=== PATIENT | female | born 1940 | race Caucasian/White ===

== ENCOUNTER 2017-02-25 09:47 | Observation (INO) | payer MEDICARE ==
[2017-02-25] VITALS (7 sets, daily range): BP systolic 154–168; BP diastolic 75–90; PULSE 69–95; RESP 16–20; TEMP 97.1–97.9; O2SAT 95–99
[~2017-02-25] VITALS: Ht 157.5 cm; Wt 53.4 kg
[~2017-02-25 09:47] MED LIST: LEVO.075 PO; SYNT25TA PO
--- NOTE | 2017-02-25 09:58 | PD ---
HPI Chief Complaint: Fall Time Seen by Provider: 09:54 Travel History International Travel<30 days: No Contact w/Intl Traveler<30days: No Traveled to known affect area: No History of Present Illness HPI Patient presents via [facility] after being called by her neighbors who noticed that her papers were building up. Patient is a poor historian. Reports having some alcoholic drinks on Sunday with a fall in the bathroom. Denies any head trauma or loss of consciousness. States she walked her dog on Sunday but went back and laid down in bed. Alert to date. States her 7 years ago and she has lived alone since. Denies any nausea vomiting diarrhea or fever. Denies any chest pain shortness of breath urinary or bowel symptoms. History of lung cancer with lobectomy. [facility] Past Medical History Cancer: Yes (SKIN ,RT. LUNG CA. 2008) High Cholesterol: Yes Chemotherapy: Yes COPD: Yes (EMPHYSEMA) Diabetes: No Diminished Hearing: No Glaucoma: No Hepatitis: No Hiatal Hernia: No Hypertension: Yes (NOT ON MEDS) Radiation Therapy: Yes Thyroid Disease: Yes Past Surgical History Abdominal Surgery: No Cardiac Surgery: No Ear Surgery: No Endocrine Surgery: No Eye Surgery: Yes (BILAT CATARACT EXT) Genitourinary Surgery: No Gynecologic Surgery: No Oral Surgery: Yes Pacemaker: No Thoracic Surgery: Yes (RUL AND RML REMOVAL-LOBECTOMY MAY 2009) Tonsillectomy: Yes (1947) Other Surgery: Yes (BASAL CELL CARSENOMA SX.,RT. UPPER,MIDLLE LUMBECTOMY ON 05/16) Social History Alcohol Use: Yes (DAILY) Tobacco Use: Yes (/2 PPD) Substance Use: No Allergies-Medications (Allergen,Severity, Reaction): Coded Allergies: Sulfa (Verified Allergy, Mild, CAN'T REMEMBER REACTION, 02/25/17) Vancomycin (Verified Adverse Reaction, Mild, ITCHINESS, REDNESS, 02/25/17) IMMEDIATE RELIEF WITH BENADRYL Reported Meds & Prescriptions Reported Meds & Active Scripts Active Reported Levothyroxine (Levothyroxine Sodium) 75 Mcg Tab 75 Mcg PO DAILY Review of Systems General / Constitutional: No: Fever Eyes: No: Visual changes HENT: No: Headaches Cardiovascular: No: Chest Pain or Discomfort Respiratory: No: Shortness of Breath Gastrointestinal: No: Abdominal Pain Genitourinary: No: Dysuria Musculoskeletal: No: Pain Skin: No Rash Neurologic: No: Weakness Psychiatric: No: Depression Endocrine: No: Polydipsia Hematologic/Lymphatic: No: Easy Bruising Physical Exam Narrative GENERAL: Poorly nourished SKIN: Focused skin assessment warm/dry. HEAD: Atraumatic. Normocephalic. EYES: Pupils equal and round. No scleral icterus. No injection or drainage. ENT: No nasal bleeding or discharge. Mucous membranes pink and moist. NECK: Trachea midline. No JVD. CARDIOVASCULAR: Regular rate and rhythm. No murmur appreciated. RESPIRATORY: No accessory muscle use. Clear to auscultation. Breath sounds equal bilaterally. GASTROINTESTINAL: Abdomen soft, non-tender, nondistended. Hepatic and splenic margins not palpable. MUSCULOSKELETAL: No obvious deformities. No clubbing. No cyanosis. No edema. NEUROLOGICAL: Awake. No obvious cranial nerve deficits. Motor grossly within normal limits. Normal speech. Data Data Last Documented VS Orders Comprehensive Metabolic Panel (02/25/17 09:54) Complete Blood Count With Diff (02/25/17 09:54) Urinalysis - C+S If Indicated (02/25/17 09:54) Chest, Single Ap (02/25/17 ) Hip, Ap Only W Ap Pelvis (02/25/17 ) Ct Brain W/O Iv Contrast(Rout) (02/25/17 ) Admit Order (Ed Use Only) (02/25/17 ) Vital Signs (Adult) Q4H (02/25/17 13:28) Diet Heart Healthy (02/25/17 Lunch) Activity Oob With Assistance (02/25/17 13:28) ^ Saline Lock (02/25/17 13:28) Resp Oxygen Donovan C Titrat 1-4 L (02/25/17 ) Notify Dr: Other (02/25/17 13:28) Ondansetron Inj (Zofran Inj) (02/25/17 13:30) Acetaminophen (Tylenol) (02/25/17 13:30) Sodium Chloride 0.9% Flush (Ns Flush) (02/25/17 21:00) Sodium Chloride 0.9% Flush (Ns Flush) (02/25/17 13:30) Case Management Consult (02/25/17 13:28) Labs MDM Medical Decision Making Medical Screen Exam Complete: Yes Emergency Medical Condition: Yes Differential Diagnosis Failure to thrive, fall risk, change of mental status Narrative Course Assessment and plan discussed with patient bedside. Last 72 hours Impressions Hip and Pelvis X-Ray 02/25/17 0000 Signed Impressions: Service Date/Time: Saturday, February 25, 2017 10:16 - CONCLUSION: No acute disease. Arron Brar MD Head CT 02/25/17 0000 Signed Impressions: Service Date/Time: Saturday, February 25, 2017 10:44 - CONCLUSION: Small amount of fluid in the right mastoid air cells. Remote basal ganglia infarcts. Arron Brar MD Chest X-Ray 02/25/17 0000 Signed Impressions: Service Date/Time: Saturday, February 25, 2017 10:18 - CONCLUSION: Findings suspect for aneurysmal dilatation of the ascending aorta. Abnormal opacity right lung apex with surgical clips present. A right apical mass can have this appearance. Arron Brar MD Patient failed ambulation Physician Communication Physician Communication Spoke with Dr. Carpio who is in agreement will admit Diagnosis Primary Impression: Failure to thrive (0-17) Additional Impression: Risk for falls Oscar Becker MD February 25, 2017 09:58 Platelet Count 189 TH/MM3 Mean Platelet Volume 7.6 FL Neutrophils (%) (Auto) 82.4 % Lymphocytes (%) (Auto) 8.0 % Monocytes (%) (Auto) 6.4 % Eosinophils (%) (Auto) 0.2 % Basophils (%) (Auto) 3.0 % Neutrophils # (Auto) 11.4 TH/MM3 Lymphocytes # (Auto) 1.1 TH/MM3 Monocytes # (Auto) 0.9 TH/MM3 Eosinophils # (Auto) 0.0 TH/MM3 Basophils # (Auto) 0.4 TH/MM3 CBC Comment DIFF FINAL Differential Comment Sodium Level 138 MEQ/L Potassium Level 3.8 MEQ/L Chloride Level 101 MEQ/L Carbon Dioxide Level 28.3 MEQ/L Anion Gap 9 MEQ/L Blood Urea Nitrogen 11 MG/DL Creatinine 0.69 MG/DL Estimat Glomerular Filtration 82 ML/MIN Rate Random Glucose 129 MG/DL Calcium Level 9.6 MG/DL Total Bilirubin 0.9 MG/DL Aspartate Amino Transf 50 U/L (AST/SGOT) Alanine Aminotransferase 37 U/L (ALT/SGPT) Alkaline Phosphatase 84 U/L Total Protein 8.3 GM/DL Albumin 3.6 GM/DL MDM Medical Decision Making Medical Screen Exam Complete: Yes Emergency Medical Condition: Yes Differential Diagnosis Failure to thrive, fall risk, change of mental status Narrative Course Assessment and plan discussed with patient bedside. Last 72 hours Impressions Hip and Pelvis X-Ray 02/25/17 0000 Signed Impressions: Service Date/Time: Saturday, February 25, 2017 10:16 - CONCLUSION: No acute disease. Arron Brar MD Head CT 02/25/17 0000 Signed Impressions: Service Date/Time: Saturday, February 25, 2017 10:44 - CONCLUSION: Small amount of fluid in the right mastoid air cells. Remote basal ganglia infarcts. Arron Brar MD Chest X-Ray 02/25/17 0000 Signed Impressions: Service Date/Time: Saturday, February 25, 2017 10:18 - CONCLUSION: Findings suspect for aneurysmal dilatation of the ascending aorta. Abnormal opacity right lung apex with surgical clips present. A right apical mass can have this appearance. Arron Brar MD Patient failed ambulation Physician Communication Physician Communication Spoke with Dr. aCrpio who is in agreement will admit Diagnosis Primary Impression: Failure to thrive (0-17) Additional Impression: Risk for falls Oscar Becker MD February 25, 2017 09:58
[2017-02-25] MEDS ORDERED: LEVO75TA3 PO (10:07)
[2017-02-25 10:19] LABS: BLOOD, URINE TRACE (NEG); GLUCOSE,URINE NEG (NEG); KETONE, URINE TRACE mg/dL (NEG); NITRITE,URINE NEG (NEG)
[2017-02-25 10:22] LABS: METHOD OF COLLECTION CATH; URINE COLOR YELLOW (YELLW/STRAW)
[2017-02-25 10:23] LABS: CULTURE IF INDICATED CATH CULTURE NOT IND; RBC, URINE 0-3 /hpf (0-3)
[2017-02-25 10:24] LABS: COMMENT (UR) CATH-CULT NOT IND; COMMENT2 (UR) MUCOUS PRESENT; SQUAMOUS EPITHELIAL CELL URINE 0-5 /hpf (0-5); TRANSITIONAL EPI CELLS, URINE 0-5 /hpf
[2017-02-25 10:41] LABS: AUTOMATED NEUTROPHIL # 11.4 TH/MM3 (1.8-7.7); BASOPHIL # 0.4 TH/MM3 (0-0.2); EOSINOPHIL % 0.2 % (0.0-4.0); HEMATOCRIT 44.8 % (35.0-46.0); HEMO FLAGS DIFF FINAL; LYMPHOCYTE # 1.1 TH/MM3 (1.0-4.8); MEAN CELL VOLUME 93.1 FL (80.0-100.0); MEAN CORPUSCULAR HEMOGLOBIN 31.6 PG (27.0-34.0); MONO % 6.4 % (0.0-8.0); NEUT % 82.4 % (16.0-70.0); PLATELET COUNT 189 TH/MM3 (150-450); RED BLOOD COUNT 4.82 MIL/MM3 (4.00-5.30); RED CELL DISTRIBUTION WIDTH 14.6 % (11.6-17.2); WHITE BLOOD COUNT 13.8 TH/MM3 (4.0-11.0)
--- NOTE | 2017-02-25 10:47 | RADHPO ---
EXAM DATE/TIME: 02/25/2017 10:18 [facility] COMPARISON: No previous studies available for comparison. INDICATIONS : Short of breath, fall 2 days ago MEDICAL HISTORY : None. SURGICAL HISTORY : None. ENCOUNTER: Initial ACUITY: 2 days PAIN SCORE: 0/10 LOCATION: Bilateral chest FINDINGS: Abnormal opacity the right lung apex is noted with surgical clips present. The aorta is tortuous and findings are concerning for dilatation of the ascending aorta. The lungs are otherwise clear. Osseous structures are intact. CONCLUSION: Findings suspect for aneurysmal dilatation of the ascending aorta. Abnormal opacity right lung apex w ith surgical clips present. A right apical mass can have this appearance. Arron Brar MD on February 25, 2017 at 10:45 Board Certified Radiologist. This report was verified electronically.
--- NOTE | 2017-02-25 10:48 | RADHPO ---
EXAM DATE/TIME: 02/25/2017 10:16 [facility] COMPARISON: No previous studies available for comparison. INDICATIONS : Right hip area pain from fall 2 days ago MEDICAL HISTORY : None. SURGICAL HISTORY : None. ENCOUNTER: Initial ACUITY: 2 days PAIN SCORE: 6/10 LOCATION: Right hip FINDINGS: View of the right hip and pelvis was obtained. Femoral neck is intact. No fracture is seen. The so ft tissues are unremarkable. There is moderate osteoarthritis noted. CONCLUSION: No acute disease. Arron Brar MD on February 25, 2017 at 10:46 Board Certified Radiologist. This report was verified electronically.
[2017-02-25 10:51] LABS: CHLORIDE 101 MEQ/L (98-107); POTASSIUM 3.8 MEQ/L (3.5-5.1); SODIUM (NA) 138 MEQ/L (136-145)
[2017-02-25 10:54] LABS: ANION GAP 9 MEQ/L (5-15); BICARBONATE 28.3 MEQ/L (21.0-32.0); BLOOD UREA NITROGEN 11 MG/DL (7-18)
[2017-02-25 10:57] LABS: ALT (GPT) 37 U/L (10-53); AST (GOT) 50 U/L (15-37)
[2017-02-25 10:58] LABS: GLOMERULAR FILTRATION RATE 82 ML/MIN (>89)
[2017-02-25 10:59] LABS: TOTAL BILIRUBIN ADULT 0.9 MG/DL (0.2-1.0)
[2017-02-25 11:00] LABS: ALKALINE PHOSPHATASE 84 U/L (45-117)
--- NOTE | 2017-02-25 11:08 | RADHPO ---
EXAM DATE/TIME: 02/25/2017 10:44 [facility] COMPARISON: No previous studies available for comparison. INDICATIONS : Fall. RADIATION DOSE: 61.90 CTDIvol (mGy) MEDICAL HISTORY : Hypertension. Carcinoma, lung. Chronic obstructive pulmonary disease.Basal cell cancer SURGICAL HISTORY : Tonsillectomy. Right lobectomy. Bilateral cataracts ENCOUNTER: Initial ACUITY: 2 days PAIN SCALE: 5/10 LOCATION: Right cranial TECHNIQUE: Multiple contiguous axial images were obtained of the head. Using automated exposure control and adj ustment of the mA and/or kV according to patient size, radiation dose was kept as low as reasonably a chievable to obtain optimal diagnostic quality images. FINDINGS: There is fluid in the right mastoid air cells inferiorly. No fractures are seen. No hemorrhage, acute infarct, or mass. There is mild atrophy and remote basal ganglia lacunar infarcts identified on the left. CONCLUSION: Small amount of fluid in the right mastoid air cells. Remote basal ganglia infarcts. Arron Brar MD on February 25, 2017 at 11:05 Board Certified Radiologist. This report was verified electronically.
[2017-02-25] MEDS ORDERED: ONDANSETRON HCL 4 MG/2 ML VIAL IV PRN (13:30)
[2017-02-25] MEDS ORDERED: ACETAMINOPHEN 325 MG TAB PO PRN ×2 (13:30→14:00)
[2017-02-25] MEDS ORDERED: SODIUM CHLORIDE 0.9% FLUSH 10 ML FLUSH IVF PRN (13:30)
[2017-02-25] MEDS ORDERED: SODIUM CHLORIDE 0.9% FLUSH 10 ML FLUSH IV FLUSH PRN (14:00)
[2017-02-25] MEDS ORDERED: NALOXONE HCL 0.4 MG/ML AMP IV PRN (14:00)
[2017-02-25] MEDS: ENOXAPARIN SODIUM 40 MG/0.4 ML SYRINGE SQ SCH (14:07)
--- NOTE | 2017-02-25 16:33 | HHI.HP ---
HPI Service [facility] Hospitalists Primary Care Physician Trena Fernandez MD Admission Diagnosis failure to thrive, fall risk Chief Complaint: poor eating and falling at home Travel History International Travel<30 Days: No Contact w/Intl Traveler <30 Da: No Traveled to Known Affected Are: No History of Present Illness Patient presents via [facility] after being called by her neighbors who noticed that her papers were building up. Patient is a poor historian. Reports having some alcoholic drinks on Sunday with a fall in the bathroom. Patient states continues to smoke and does drink and has been falling and does live alone. Patient in 2008 had ca lung s/p surgery ,chemo and RT and followed by oncology with yearly CT. Denies any head trauma or loss of consciousness. States she walked her dog on Sunday but went back and laid down in bed. Alert to date. States her 7 years ago and she has lived alone since. Denies any nausea vomiting diarrhea or fever. Denies any chest pain shortness of breath urinary or bowel symptoms. History of lung cancer with lobectomy. Patient in er very unsteady and will need rehab placement for strengthening will add prn ativan as history drinking. Review of Systems Constitutional: COMPLAINS OF: Change in appetite Neurologic: COMPLAINS OF: Abnormal gait Past Family Social History Past Medical History hypothyroid,lung cancer Past Surgical History lobectomy rt Reported Medications levothyroxine 75 Allergies: Coded Allergies: Sulfa (Verified Allergy, Mild, CAN'T REMEMBER REACTION, 02/25/17) Vancomycin (Verified Adverse Reaction, Mild, ITCHINESS, REDNESS, 02/25/17) IMMEDIATE RELIEF WITH BENADRYL Social History drinks ,smokes 1/2 ppd Physical Exam Vital Signs Vital Signs Date Time Temp Pulse Resp B/P Pulse Ox O2 Delivery O2 Flow Rate FiO2 02/25/17 16:14 95 21 02/25/17 16:00 97.1 92 16 168/90 95 02/25/17 13:18 95 20 160/75 97 Room Air 02/25/17 11:05 69 18 158/81 96 Room Air 02/25/17 10:10 98 Room Air 02/25/17 09:59 97.5 78 18 164/76 99 Physical Exam GENERAL: This is a well-nourished, well-developed patient, in no apparent distress. SKIN: No rashes, ecchymoses or lesions. Cool and dry. HEAD: Atraumatic. Normocephalic. No temporal or scalp tenderness. EYES: Pupils equal round and reactive. Extraocular motions intact. No scleral icterus. No injection or drainage. ENT: Nose without bleeding, purulent drainage or septal hematoma. Throat without erythema, tonsillar hypertrophy or exudate. Uvula midline. Airway patent. NECK: Trachea midline. No JVD or lymphadenopathy. Supple, nontender, no meningeal signs. CARDIOVASCULAR: Regular rate and rhythm without murmurs, gallops, or rubs. RESPIRATORY: Clear to auscultation. Breath sounds equal bilaterally. No wheezes , rales, or rhonchi. GASTROINTESTINAL: Abdomen soft, non-tender, nondistended. No hepato-splenomegaly , or palpable masses. No guarding. MUSCULOSKELETAL: Extremities without clubbing, cyanosis, or edema. No joint tenderness, effusion, or edema noted. No calf tenderness. Negative Homans sign bilaterally. NEUROLOGICAL: Awake and alert. Cranial nerves II through XII intact. Motor and sensory grossly within normal limits. Five out of 5 muscle strength in all muscle groups. Normal speech. Laboratory Laboratory Tests Test 02/25/17 02/25/17 10:00 10:34 Urine Collection Type CATH Urine Color YELLOW Urine Turbidity SLIGHT Urine pH 6.0 Urine Specific [place] 1.016 Urine Protein 100 Urine Glucose (UA) NEG Urine Ketones TRACE Urine Occult Blood TRACE Urine Nitrite NEG Urine Bilirubin NEG Urine Leukocyte Esterase NEG Urine RBC 0-3 Urine Squamous Epithelial 0-5 Cells Urine Transitional Epithelial 0-5 Cells Urine Amorphous Sediment FEW Microscopic Urinalysis Comment CATH-CULT NOT IND Urine Collection Time 1000 White Blood Count 13.8 Red Blood Count 4.82 Hemoglobin 15.3 Hematocrit 44.8 Mean Corpuscular Volume 93.1 Mean Corpuscular Hemoglobin 31.6 Mean Corpuscular Hemoglobin 34.0 Concent Red Cell Distribution Width 14.6 Platelet Count 189 Mean Platelet Volume 7.6 Neutrophils (%) (Auto) 82.4 Lymphocytes (%) (Auto) 8.0 Monocytes (%) (Auto) 6.4 Eosinophils (%) (Auto) 0.2 Basophils (%) (Auto) 3.0 Neutrophils # (Auto) 11.4 Lymphocytes # (Auto) 1.1 Monocytes # (Auto) 0.9 Eosinophils # (Auto) 0.0 Basophils # (Auto) 0.4 CBC Comment DIFF FINAL Differential Comment Sodium Level 138 Potassium Level 3.8 Chloride Level 101 Carbon Dioxide Level 28.3 Anion Gap 9 Blood Urea Nitrogen 11 Creatinine 0.69 Estimat Glomerular Filtration 82 Rate Random Glucose 129 Calcium Level 9.6 Total Bilirubin 0.9 Aspartate Amino Transf 50 (AST/SGOT) Alanine Aminotransferase 37 (ALT/SGPT) Alkaline Phosphatase 84 Total Protein 8.3 Albumin 3.6 Result Diagram: 02/25/17 1034 02/25/17 1034 Imaging Last 24 hours Impressions Hip and Pelvis X-Ray 02/25/17 0000 Signed Impressions: Service Date/Time: Saturday, February 25, 2017 10:16 - CONCLUSION: No acute disease. Arron Brar MD Head CT 02/25/17 0000 Signed Impressions: Service Date/Time: Saturday, February 25, 2017 10:44 - CONCLUSION: Small amount of fluid in the right mastoid air cells. Remote basal ganglia infarcts. Arron Brar MD Chest X-Ray 02/25/17 0000 Signed Impressions: Service Date/Time: Saturday, February 25, 2017 10:18 - CONCLUSION: Findings suspect for aneurysmal dilatation of the ascending aorta. Abnormal opacity right lung apex with surgical clips present. A right apical mass can have this appearance. Arron Brar MD Assessment and Plan Problem List: (1) Failure to thrive (0-17) Status: Acute Plan: patient did eat well and is drinking fluid will hold off any IV treatment will need placement (2) Risk for falls Status: Chronic Plan: as above will get PT to evaluate feel will need placement Assessment and Plan as aboce consult case management also note has slightly abnormal chest xray but does follow with oncology as out patient and further evaluation can be done as outpatient also ?aneurysm on asending aorta will get aortic ultrasound Code Status full Discussed Condition With patient Taras Siddiqui MD February 25, 2017 16:33
[2017-02-25] MEDS: SODIUM CHLORIDE 0.9% FLUSH 10 ML FLUSH IV FLUSH SCH (21:00)
[2017-02-25] MEDS ORDERED: SODIUM CHLORIDE 0.9% FLUSH 10 ML FLUSH IV FLUSH SCH (21:00)
[2017-02-25] MEDS ORDERED: LORazepam 0.5 MG TAB PO PRN (23:30)
[2017-02-26 00:41] VITALS: BP 141/84; PULSE 80; RESP 20; TEMP 97.3; O2SAT 95
[2017-02-26] MEDS ORDERED: LEVOTHYROXINE SODIUM 75 MCG TAB PO SCH (06:00)
[2017-02-26 07:59] VITALS: O2SAT 93
[2017-02-26 08:00] VITALS: BP 135/84; PULSE 74; RESP 16; TEMP 98; O2SAT 95
[2017-02-26 08:07] LABS: AUTOMATED NEUTROPHIL # 9.1 TH/MM3 (1.8-7.7); BASOPHIL % 0.2 % (0.0-2.0); CHLORIDE 105 MEQ/L (98-107); EOSINOPHIL # 0.2 TH/MM3 (0-0.4); EOSINOPHIL % 1.5 % (0.0-4.0); HEMATOCRIT 41.1 % (35.0-46.0); HEMO FLAGS DIFF FINAL; LYMPH % 10.8 % (9.0-44.0); LYMPHOCYTE # 1.2 TH/MM3 (1.0-4.8); MEAN CELL VOLUME 93.1 FL (80.0-100.0); MEAN CORPUSCULAR HEMOGLOBIN 31.4 PG (27.0-34.0); MEAN CORPUSCULAR HGB CONC 33.8 % (32.0-36.0); MONO % 8.1 % (0.0-8.0); NEUT % 79.4 % (16.0-70.0); PLATELET COUNT 146 TH/MM3 (150-450); POTASSIUM 3.2 MEQ/L (3.5-5.1); RED BLOOD COUNT 4.41 MIL/MM3 (4.00-5.30); RED CELL DISTRIBUTION WIDTH 15.1 % (11.6-17.2); SODIUM (NA) 140 MEQ/L (136-145); WHITE BLOOD COUNT 11.4 TH/MM3 (4.0-11.0)
[2017-02-26 08:17] LABS: ANION GAP 8 MEQ/L (5-15); BICARBONATE 26.7 MEQ/L (21.0-32.0)
[2017-02-26 08:18] LABS: BLOOD UREA NITROGEN 17 MG/DL (7-18)
[2017-02-26 08:20] LABS: ALT (GPT) 30 U/L (10-53); AST (GOT) 41 U/L (15-37); GLOMERULAR FILTRATION RATE 97 ML/MIN (>89)
[2017-02-26 08:21] LABS: TOTAL BILIRUBIN ADULT 0.7 MG/DL (0.2-1.0)
[2017-02-26 08:23] LABS: ALKALINE PHOSPHATASE 67 U/L (45-117)
--- NOTE | 2017-02-26 09:03 | HHI.FPPN ---
Subjective Remarks Sore all over today, mostly to the right shoulder and right hip and back. Notes she was on the floor for nearly a day (maybe more) as she couldn't get up. Admits to having had ETOH preceeding the fall (anniversary of her 's ). NO fever, no increased cough. HAving some trouble caring for herself at home but has a dog she doesn't want to leave. She wants to go home today. No n/v. Hungry. Confused about the events of the past few days. Sister is here with her today, concerned about her. Objective Vitals Vital Signs Date Time Temp Pulse Resp B/P Pulse Ox O2 Delivery O2 Flow Rate FiO2 02/26/17 07:59 93 21 02/26/17 04:45 02/26/17 00:41 97.3 80 20 141/84 95 02/25/17 20:52 97.9 91 20 154/80 95 02/25/17 19:20 96 21 02/25/17 16:14 95 21 02/25/17 16:00 97.1 92 16 168/90 95 02/25/17 13:18 95 20 160/75 97 Room Air 02/25/17 11:05 69 18 158/81 96 Room Air 02/25/17 10:10 98 Room Air 02/25/17 09:59 97.5 78 18 164/76 99 I/O 02/25/17 02/25/17 02/25/17 02/26/17 02/26/17 02/26/17 07:00 15:00 23:00 07:00 15:00 23:00 Intake Total 640 ml 0 ml 0 ml Output Total 600 ml Balance 40 ml 0 ml 0 ml Intake Oral 240 ml IV Total 400 ml 0 ml 0 ml Output Urine Total 600 ml # Voids 2 2 Result Diagram: 02/26/1772402/26/17724 Imaging CXR with questionable right apical lesion (prior lung cancer) Objective Remarks Gen: Thin WF, actinic changes to her face, seems more vague than normal CV: RRR, no murmur LUngs: bronchial BS bilaterally, egophony to the right apex (new compared to her prior exams except when she did have her initial lung CA). no wheezing, diffusely decreased BS to the bases ABd: soft, non tender Ext: tender to the mid back, right shoulder, right hip. Uncomfortable going to sitting, decreased ROM of the right shoulder, able to move all other extremities Skin: right mid back burn to the skin, superficial, no bruising noted Able to move with PT and walking with a walker Neuro: following commands but her mentation doesn't quite seem her normal, more vague, Josh (PT) noted that she couldn't remember how to turn on the TV with the remote. Urinary Catheter: No Vascular Central Line Catheter: No A/P Discharge Planning hopefully to rehab today if possible. Pt is contemplating. Check CPK and CT today. Problem List: (1) Failure to thrive (0-17) Status: Acute Plan: She looks thinner compared to her norm (last seen in June 2016). She admits to recent ETOH use in response to the anniversary of her 's . Would like to see her in rehab for a few weeks to regain her strength and make sure she is safe at home. Sister is here for a few days. (2) Risk for falls Status: Chronic Plan: She has had falls at home but until now had done okay. Now with weakness and unable to get off the floor at home. NEeds some rehab. Check CPK due to being on the floor for 24 hours. Eval for rhabdo. Renal function is good. Encourage fluid intake. Consider fluid bolus if needed. (3) History of lung cancer Status: Chronic Plan: She had lung resection and has done well with no sign of recurrance. She does have a change in her exam and questionable lesion on her CXR. Check CT thorax. (4) Grieving Status: Chronic Plan: ONgoing since her 's , her sister's about 8 years ago. She has declined meds or counselling. Trena Fernandez MD February 26, 2017 09:03
--- NOTE | 2017-02-26 09:50 | RADHPO ---
EXAM DATE/TIME: 02/26/2017 07:55 [facility] COMPARISON: CT ABDOMEN & PELVIS W CONTRAST, January 18, 2013, 13:37. INDICATIONS : Aneurysm seen on Xray. MEDICAL HISTORY : Hypercholesterolemia. Hypertension. Emphysema. Thyroid disease. COPD. Gait problems. Skin cancer. Rig ht lung cancer. SURGICAL HISTORY : Tonsillectomy. Bilateral cataract. Right lobectomy. Basal cell carcinoma surgery. Chemotherapy. R adiation therapy. ENCOUNTER: Initial ACUITY: 2 days PAIN SCORE: 0/10 LOCATION: Abdomen. MEASUREMENTS: (AP x TRANSVERSE) PROXIMAL: 1.9 x 2.5 cm MID: 4.1 x 4.1 cm DISTAL: 1.4 x 1.5 cm RIGHT ILIAC: 1.0 x 1.0 cm LEFT ILIAC: 0.7 x 1.0 cm FINDINGS: AORTA: No significant atherosclerotic disease. Doppler evaluation within normal limits. IVC: Within normal limits. CONCLUSION: 4.1 cm abdominal aortic aneurysm Kevin Mckenzie MD on February 26, 2017 at 9:46 Board Certified Radiologist. This report was verified electronically.
[2017-02-26 10:01] LABS: CKMB 3.3 NG/ML (0.5-3.6)
--- NOTE | 2017-02-26 10:36 | HHI.DS ---
Discharge Summary Admission Date February 25, 2017 at 13:30 Discharge Date: February 26, 2017 Admitting Diagnosis failure to thrive, fall risk (1) Failure to thrive (0-17) Diagnosis: Principal (2) Risk for falls Diagnosis: Principal Brief History Patient presents via [facility] after being called by her neighbors who noticed that her papers were building up. Patient is a poor historian. Reports having some alcoholic drinks on Sunday with a fall in the bathroom. Patient states continues to smoke and does drink and has been falling and does live alone. Patient in 2008 had ca lung s/p surgery ,chemo and RT and followed by oncology with yearly CT. Denies any head trauma or loss of consciousness. States she walked her dog on Sunday but went back and laid down in bed. Alert to date. States her 7 years ago and she has lived alone since. Denies any nausea vomiting diarrhea or fever. Denies any chest pain shortness of breath urinary or bowel symptoms. History of lung cancer with lobectomy. Patient in er very unsteady and will need rehab placement for strengthening will add prn ativan as history drinking. CBC/BMP: 02/26/17 0725 02/26/17 0725 Significant Findings Laboratory Tests Test 02/25/17 02/25/17 02/26/17 02/26/17 10:00 10:34 07:10 07:25 Urine Protein 100 mg/dL (NEG-TRACE) Urine Ketones TRACE mg/dL (NEG) Urine Occult Blood TRACE (NEG) White Blood Count 13.8 TH/MM3 11.4 TH/MM3 (4.0-11.0) (4.0-11.0) Neutrophils (%) (Auto) 82.4 % 79.4 % (16.0-70.0) (16.0-70.0) Lymphocytes (%) (Auto) 8.0 % (9.0-44.0) Basophils (%) (Auto) 3.0 % (0.0-2.0) Neutrophils # (Auto) 11.4 TH/MM3 9.1 TH/MM3 (1.8-7.7) (1.8-7.7) Basophils # (Auto) 0.4 TH/MM3 (0-0.2) Estimat Glomerular Filtration 82 ML/MIN (>89) Rate Random Glucose 129 MG/DL 109 MG/DL (74-106) (74-106) Aspartate Amino Transf 50 U/L (15-37) 41 U/L (15-37) (AST/SGOT) Total Protein 8.3 GM/DL (6.4-8.2) Total Creatine Kinase 513 U/L (26-192) Platelet Count 146 TH/MM3 (150-450) Monocytes (%) (Auto) 8.1 % (0.0-8.0) Potassium Level 3.2 MEQ/L (3.5-5.1) Albumin 3.1 GM/DL (3.4-5.0) Imaging Last 24 hours Impressions Aorta Ultrasound 02/26/17 0600 Signed Impressions: Service Date/Time: Sunday, February 26, 2017 07:55 - CONCLUSION: 4.1 cm abdominal aortic aneurysm Kevin Mckenzie MD PE at Discharge GENERAL: SKIN: Warm and dry. HEAD: Atraumatic. Normocephalic. EYES: Pupils equal and round. No scleral icterus. No injection or drainage. ENT: No nasal bleeding or discharge. Mucous membranes pink and moist. NECK: Trachea midline. No JVD. CARDIOVASCULAR: Regular rate and rhythm. RESPIRATORY: No accessory muscle use. Clear to auscultation. Breath sounds equal bilaterally. GASTROINTESTINAL: Abdomen soft, non-tender, nondistended. Hepatic and splenic margins not palpable. MUSCULOSKELETAL: Extremities without clubbing, cyanosis, or edema. No obvious deformities. NEUROLOGICAL: Awake and alert. No obvious cranial nerve deficits. Motor grossly within normal limits. Four out of 5 muscle strength in the arms and legs. Normal speech. PSYCHIATRIC: Appropriate mood and affect; insight and judgment normal. Transfer Summary Patient admitted with frequent falls poor appetite and has been drinking at home and continuing to smoke . Labs were stable did have elevated WBC count but this improved on repeat does have low potassium will give potassium before discharge and follow up labs ,also did well with PT and this will be continued , patient has aortic ultrasound showing aneurysm 4.1 size ,i will discuss with PCP as to cardiovascular group she prefers and also had CT lung as had abnormality on chest xray ,patient does follow with oncology for hx lung cancer. Pt Condition on Discharge: Good Discharge Disposition: Discharge to SNF Discharge Instructions DIET: Follow Instructions for: Heart Healthy Diet Activities you can perform: Regular-No Restrictions Other Activity Instructions: use of walker Continued Medications: Levothyroxine (Levothyroxine) 75 Mcg Tab 75 MCG PO DAILY Thyroid #30 Ref 0 TAB Additional Information to rehab today Taras Siddiqui MD February 26, 2017 10:36
[2017-02-26] MEDS ORDERED: POTASSIUM CHLORIDE 20 MEQ CONTROLLED RELEASE TAB PO ONE (10:45)
--- NOTE | 2017-02-26 11:31 | RADHPO ---
EXAM DATE/TIME: 02/26/2017 10:06 [facility] COMPARISON: CHEST SINGLE AP, February 25, 2017, 10:18. INDICATIONS : Abnormal chest xray. Right lung apical opacity. RADIATION DOSE: 6.58 CTDIvol (mGy) MEDICAL HISTORY : Chronic obstructive pulmonary disease. Hypertension. Carcinoma, lung. Basal cell cancer. SURGICAL HISTORY : Tonsillectomy. Lobectomy. ENCOUNTER: Initial ACUITY: 2 days PAIN SCALE: 0/10 LOCATION: Right chest TECHNIQUE: Volumetric scanning of the chest was performed. Using automated exposure control and adjustment of t he mA and/or kV according to patient size, radiation dose was kept as low as reasonably achievable to obtain optimal diagnostic quality images. FINDINGS: LUNGS: There is no consolidation or pneumothorax. No concerning pulmonary nodule is visualized. Patient is status post right upper lobectomy with focal scarring and volume loss. There is no mass. There is und erlying emphysema greatest in the right lung. PLEURAE: There is no pleural thickening or pleural effusion. MEDIASTINUM: The heart and great vessels demonstrate no acute abnormality. Atherosclerotic changes are present wit h dilatation and calcification. There is no focal aneurysm. There is no mediastinal or hilar lymphad enopathy. Surgical changes are noted in the right hilar region with multiple clips. Coronary artery c alcifications are present. AXILLAE: Within normal limits. No lymphadenopathy. MUSCULOSKELETAL: Within normal limits for patient age. MISCELLANEOUS: The visualized upper abdominal organs demonstrate no acute abnormality. CONCLUSION: 1. The right apical pleural-parenchymal change seen on the chest x-ray corresponds to focal scarring. 2. There is no evidence of a mass. Patient is status post right upper lobectomy with volume loss and postsurgical change. 3. Atherosclerotic changes in the aorta with dilatation and no focal aneurysm. 4. Underlying emphysema and coronary artery calcifications are present. Joseph Juares MD on February 26, 2017 at 11:17 Board Certified Radiologist. This report was verified electronically.
[2017-02-26 12:00] VITALS: BP 130/80; PULSE 76; RESP 16; TEMP 98.5; O2SAT 96
[2017-02-26] MEDS: SODIUM CHLORIDE 0.9% FLUSH 10 ML FLUSH IV FLUSH SCH (13:02)
[2017-02-26] MEDS: ENOXAPARIN SODIUM 40 MG/0.4 ML SYRINGE SQ SCH (13:02)
== END 2017-02-26 15:05 ==
LOC: PHED 09:47 → UNDOADMOB 13:30 → PHEDA 13:30 → PH3B 14:16 → PHEDA 14:16 → UNDODISOB 02-26 15:05
PROVIDERS: ADMIT Internal Medicine; ATTEND Internal Medicine
DX: R62.7 Adult failure to thrive (principal); Z91.81 History of falling; E78.00 Pure hypercholesterolemia, unspecified; I10 Essential (primary) hypertension; E03.9 Hypothyroidism, unspecified; J44.9 Chronic obstructive pulmonary disease, unspecified; F17.200 Nicotine dependence, unspecified, uncomplicated; Z85.828 Personal history of other malignant neoplasm of skin; Z85.118 Personal history of other malignant neoplasm of bronchus and lung; Z88.1 Allergy status to other antibiotic agents; Z88.2 Allergy status to sulfonamides; Z92.21 Personal history of antineoplastic chemotherapy; Z92.3 Personal history of irradiation; W19.XXXA Unspecified fall, initial encounter; Y92.002 Bathroom of unspecified non-institutional (private) residence as the place of occurrence of the external cause; F17.210 Nicotine dependence, cigarettes, uncomplicated
CPT/HCPCS: 70450; 71010; 71250; 73501; 76775; 80053; 81001; 82550; 82552; 84443; 85025; 97162; 99285; G0378; G8987; G8988; J1650

== ENCOUNTER → 2017-10-15 | Outpatient (CLI) | payer MEDICARE ==
[~2017-10-15] MED LIST changes: +ECASA81 PO; -LEVO.075 PO; +LEVO75TA3 PO; +LIPI10TA PO; +PERC5TAB12 PO; -SYNT25TA PO
[2017-10-15 13:55] LABS: HEMATOCRIT 39.7 % (35.0-46.0); MEAN CORPUSCULAR HEMOGLOBIN 30.4 PG (27.0-34.0); MEAN CORPUSCULAR HGB CONC 35.4 % (32.0-36.0); MEAN PLATELET VOLUME 7.3 FL (7.0-11.0); PLATELET COUNT 162 TH/MM3 (150-450); RED BLOOD COUNT 4.62 MIL/MM3 (4.00-5.30); RED CELL DISTRIBUTION WIDTH 16.6 % (11.6-17.2); WHITE BLOOD COUNT 7.5 TH/MM3 (4.0-11.0)
[2017-10-15 14:00] LABS: INTERNATIONAL NORMALIZED RATIO 1.1 RATIO; PROTHROMBIN TIME - PATIENT 11.4 SEC (9.8-11.6)
[2017-10-15 14:16] LABS: BICARBONATE 27.4 MEQ/L (21.0-32.0); CALCIUM 9.3 MG/DL (8.5-10.1); CREATININE 0.73 MG/DL (0.50-1.00)
--- NOTE | 2017-10-15 15:01 | RADRPT ---
EXAM DATE/TIME: 10/15/2017 14:24 [facility] COMPARISON: No previous studies available for comparison. INDICATIONS : Evaluate for pneumothorax, pneumonia or communicable disease. Preop chest for abdominal aortic anuery sm repair on 10/18/17. MEDICAL HISTORY : Carcinoma, lung. Chronic obstructive pulmonary disease. Hypertension. SURGICAL HISTORY : Tonsillectomy. Lobectomy. ENCOUNTER: Initial ACUITY: 1 day PAIN SCORE: 0/10 LOCATION: Bilateral chest FINDINGS: Evidence for previous surgery right apex. Compensated cardiomegaly without overt congestive failure. There is no pneumothorax or infiltrate Degenerative changes thoracic spine. CONCLUSION: Process. Mild compensated cardiomegaly Juan A Johnson MD FACR on October 15, 2017 at 14:57 Board Certified Radiologist. This report was verified electronically.
--- NOTE | 2017-10-16 16:44 | EKG ---
Date Performed: 10/15/2017 Time Performed: 13:45:58 PTAGE: 76 years EKG: Sinus rhythm IV conduction defect Possible septal infarct - age undetermined Abnormal ECG PREVIOUS TRACING 05/11/09 IV conduction defect and septal infarct appear to be new since prior tracing. Clinical correlation is recommended. DOCTOR: Parker Elder Interpretating Date/Time 10/16/2017 16:44:29
== END ==
LOC: CPRE 13:15
PROVIDERS: ATTEND Surgery
DX: Z01.810 Encounter for preprocedural cardiovascular examination (principal); Z01.811 Encounter for preprocedural respiratory examination; Z01.812 Encounter for preprocedural laboratory examination; I71.4 Abdominal aortic aneurysm, without rupture; R94.31 Abnormal electrocardiogram [ECG] [EKG]
CPT/HCPCS: 36415; 71046; 80048; 85027; 85610; 93005

== ENCOUNTER 2017-10-18 06:19 | Inpatient (IN) | payer MEDICARE ==
[~2017-10-18] VITALS: Ht 157.5 cm; Wt 61.0 kg
[2017-10-18] VITALS (11 sets, daily range): BP systolic 157–174; BP diastolic 73–79; PULSE 51–79; RESP 16–18; TEMP 97.5–97.9; O2SAT 92–95
[~2017-10-18 06:19] MED LIST changes: -PERC5TAB12 PO
[2017-10-18] MEDS ORDERED: SODIUM CHLORID 0.9% 500 ML IV PRN (06:45)
[2017-10-18] MEDS ORDERED: LACTATED RINGER'S 1000 ML IV PRN (06:45)
[2017-10-18] MEDS ORDERED: INSULIN HUMAN REGULAR 1,000 UNITS/10 ML VIAL SQ PRN (06:45)
[2017-10-18] MEDS ORDERED: POVIDONE IODINE 5% (ANTISEPSIS KIT) 4 APPLICATIONS EACH NARE PRN (06:45)
[2017-10-18] MEDS ORDERED: METOPROLOL TARTRATE 25 MG TAB PO PRN (06:45)
[2017-10-18] MEDS ORDERED: CHLORHEXIDINE GLUCONATE 2 % 1 PACK (2 CLOTHS) TOPICAL PRN (06:45)
[2017-10-18] MEDS ORDERED: PROTAMINE SULFATE 50 MG/5 ML VIAL ONE (06:46)
[2017-10-18] MEDS ORDERED: ceFAZolin 2 GM PREMIX 0 ML ONE (06:47)
[2017-10-18] MEDS ORDERED: HEPARIN SODIUM - IV 10,000 UNITS/10 ML VIAL ONE (06:47)
[2017-10-18] MEDS ORDERED: THROMBIN (TOPICAL) 20,000 UNIT SPRAY KIT ONE (06:47)
[2017-10-18] MEDS ORDERED: BUPIVACAINE HCL PF 0.5% 30 ML VIAL ONE (06:47)
[2017-10-18] MEDS ORDERED: HEPARIN-NS/PF INJ 500 ML ONE (06:47)
--- NOTE | 2017-10-18 07:28 | HHI.HP ---
History of Present Illness Chief Complaint: AAA History of Present Illness 76 yo female with rapidly expanding AAA (4.1 to 5.1 cm in several months) but no new abdominal or back pain Past/Family/Social History Past Medical History AAA COPD lung CA hypothyroidism XOL HTN Past Surgical History lung resection Social History + tobacco Family History AAA (father) Home Medications Reported Medications Atorvastatin (Lipitor) 10 Mg Tab, 10 MG PO HS for Cholesterol Management, #30 TAB 0 Refills 10/16/[address] (Aspirin DR) 81 Mg Tabdr, 81 MG PO DAILY, TAB 0 Refills 10/16/17 Levothyroxine (Levothyroxine) 75 Mcg Tab, 75 MCG PO DAILY for Thyroid, #30 TAB 0 Refills 02/25/17 Coded Allergies: Sulfa (Sulfonamide Antibiotics) (Unverified Allergy, Mild, CAN'T REMEMBER REACTION, 10/18/17) bupropion (Verified Adverse Reaction, Severe, Rash, 10/18/17) vancomycin (Unverified Adverse Reaction, Mild, ITCHINESS, REDNESS, 10/18/17 ) IMMEDIATE RELIEF WITH BENADRYL Review of Systems Constitutional: DENIES: Fever, Chills Cardiovascular: COMPLAINS OF: Claudication, DENIES: Chest pain Gastrointestinal: DENIES: Abdominal pain Physical Exam Vitals/I&O Date Time Temp Pulse Resp B/P (MAP) Pulse Ox O2 Delivery O2 Flow Rate FiO2 10/18/17 07:03 97.5 87 20 139/73 (95) 96 Neuro: no distress, GUTIÉRREZ HEENT: NC/AT Neck: no JVD, trachea midline Heart: reg rate, no M Lungs: diminished B Abdomen: NT Vascular: palpable femoral pulses Extremities: no C/C/E Caprini VTE Risk Assessment Caprini VTE Risk Assessment: Mod/High Risk (score >= 2) Caprini Risk Assessment Model Point Value = 1 Point Value = 2 Point Value = 3 Point Value = 5 Age 41-60 Minor surgery BMI > 25 kg/m2 Swollen legs Varicose veins or History of unexplained or recurrent spontaneous Oral contraceptives or hormone replacement Sepsis (< 1 month) Serious lung disease, including pneumonia (< 1 month) Abnormal pulmonary function Acute myocardial infarction Congestive heart failure (< 1 month) History of inflammatory bowel disease Medical patient at bed rest Age 61-74 Arthroscopic surgery Major open surgery (> 45 min) Laparoscopic surgery (> 45 min) Malignancy Confined to bed (> 72 hours) Immobilizing plaster cast Central venous access Age >= 75 History of VTE Family history of VTE Factor V Leiden Prothrombin [id number] Lupus anticoagulant Anticardiolipin antibodies Elevated serum homocysteine Heparin-induced thrombocytopenia Other congenital or acquired thrombophilia Stroke (< 1 month) Elective arthroplasty Hip, pelvis, or leg fracture Acute spinal cord injury (< 1 month) Prophylaxis Regimen Total Risk Factor Score Risk Level Prophylaxis Regimen 0-1 Low Early ambulation 2 Moderate Order ONE of the following: *Sequential Compression Device (SCD) *Heparin 5000 units SQ BID 3-4 Higher Order ONE of the following medications: *Heparin 5000 units SQ TID *Enoxaparin/Lovenox 40 mg SQ daily (WT < 150 kg, CrCl > 30 mL/min) *Enoxaparin/Lovenox 30 mg SQ daily (WT < 150 kg, CrCl > 10-29 mL/min) *Enoxaparin/Lovenox 30 mg SQ BID (WT < 150 kg, CrCl > 30 mL/min) AND/OR *Sequential Compression Device (SCD) 5 or more Highest Order ONE of the following medications: *Heparin 5000 units SQ TID (Preferred with Epidurals) *Enoxaparin/Lovenox 40 mg SQ daily (WT < 150 kg, CrCl > 30 mL/min) *Enoxaparin/Lovenox 30 mg SQ daily (WT < 150 kg, CrCl > 10-29 mL/min) *Enoxaparin/Lovenox 30 mg SQ BID (WT < 150 kg, CrCl > 30 mL/min) AND *Sequential Compression Device (SCD) Assessment and Plan Plan Rapidly expanding AAA, PAD EVAR with L groin reconstruction. discussed with patient and her sister again today. Sister [phone] Raphael Pittman MD Oct 18, 2017 07:28
[2017-10-18] MEDS ORDERED: ceFAZolin INJ 1,000 MG VIAL ONE (07:44)
[2017-10-18] MEDS ORDERED: IOHEXOL 300 INJ 50 ML IV ONE (08:56)
[2017-10-18] MEDS ORDERED: ACETAMINOPHEN 1000 MG/100 ML 100 ML IV ONE (09:37)
--- NOTE | 2017-10-18 11:01 | HHI.PR ---
cc: Trena Fernandez MD; Raphael Pittman MD Immediate Post Op Note Procedure Date: Oct 18, 2017 Pre Op Diagnosis: AAA, PAD Post Op Diagnosis: AAA, PAD Surgeon: Raphael Pittman Hay Stacker Operator(s): Chandni Amador Procedure: 1. L WHEEL CUTTER TEA w/ patch 2. EVAR with 2 docking limbs 3. R SFA TEA w/ patch Findings: successful EVAR + Doppler signals at end of case Complications: none apparent Specimen(s) removed: none for pathology Estimated blood loss: 250mL Anesthesia: General Drains: None Fluids: 2400mL IVF Urinary Output (mLs): 140 Patient to: PACU Patient Condition: Good Implant/Devices: SEE IMPLANT LOG (if applicable) Date/Time of Procedure: SEE SURGICAL CARE RECORD Raphael Pittman MD Oct 18, 2017 11:01
[2017-10-18] MEDS ORDERED: BISACODYL 10 MG SUPP RECTAL PRN (11:15)
[2017-10-18] MEDS ORDERED: HYDROmorphone HCL 2 MG TAB PO PRN (11:15)
[2017-10-18] MEDS ORDERED: SENNOSIDES 8.6 MG TAB PO PRN (11:15)
[2017-10-18] MEDS ORDERED: MAGNESIUM HYDROXIDE SUSP 30 ML CUP PO PRN (11:15)
[2017-10-18] MEDS ORDERED: LACTULOSE SYRUP 20 GM/30 ML CUP PO PRN (11:15)
[2017-10-18] MEDS ORDERED: ENOXAPARIN SODIUM 30 MG/0.3 ML SYRINGE SQ SCH (11:15)
[2017-10-18] MEDS ORDERED: DO NOT ADM ANY ANTICOAGULANT DRUGS PRN (11:22)
[2017-10-18] MEDS ORDERED: *morphine SULFATE 4 MG/ML PERIprocedure ONLY ONE ×2 (12:57→13:38)
--- NOTE | 2017-10-18 15:51 | PD.VS.PN ---
Subjective POD #: 0 Procedure(s): L PRACTICE ADMINISTRATOR TEA w/ patch EVAR with 2 docking limbs R SFA TEA w/ patch Subjective/Hospital Course Pt alert in NAD c/o mild Right heel discomfort Denied abdominal/back pain LE warm with motor intact Pain controlled Objective Vitals/I&O Date Time Temp Pulse Resp B/P (MAP) Pulse Ox O2 Delivery O2 Flow Rate FiO2 10/18/17 15:00 61 16 169/77 (107) 98 Nasal Cannula 2 10/18/17 14:00 65 16 164/76 (105) 97 Nasal Cannula 2 10/18/17 13:43 15 10/18/17 13:30 65 16 153/70 (97) 97 Nasal Cannula 2 10/18/17 13:02 15 10/18/17 13:00 66 16 161/70 (100) 97 Nasal Cannula 2 10/18/17 12:45 64 16 157/70 (99) 96 Nasal Cannula 2 10/18/17 12:30 97.6 67 15 163/70 (101) 96 Nasal Cannula 2 10/18/17 12:15 66 15 167/70 (102) 98 Nasal Cannula 3 10/18/17 12:00 65 15 157/72 (100) 97 Nasal Cannula 3 165/64 (97) 10/18/17 11:45 68 15 156/74 (101) 96 Nasal Cannula 3 163/64 (97) 10/18/17 11:30 69 15 150/75 (100) 100 Nasal Cannula 4 160/62 (94) 10/18/17 11:20 97.6 73 16 151/70 (97) 99 Nasal Cannula 4 154/59 (90) 10/18/17 07:03 97.5 87 20 139/73 (95) 96 10/18/17 10/18/17 10/18/17 07:00 15:00 23:00 Intake Total 2400 ml Output Total 690 ml Balance 1710 ml Exam: GENERAL: A&OX3, NAD SKIN: LE Warm and dry w/ motor intact Provena wound vacs R/L groin intact w/o hematoma/swelling Biphasic R DP heard via Doppler Biphasic L DP/PT heard via Doppler Assessment and Plan Assessment: (1) H/O endovascular stent graft for abdominal aortic aneurysm (2) PAD (peripheral artery disease) Plan Pt with a PMH of Rapidly expanding AAA, PAD Pt S/P EVAR with R/L groin reconstruction POD 0 c/o right heel discomfort Plan Pain control Continue pulse checks Monika DUPONT [facility]/[place] [phone] Discharge Planning 3-5 days Moinka Yi Oct 18, 2017 15:51
[2017-10-18] MEDS ORDERED: MORPHINE SULFATE 2 MG/ML INJ IV PUSH PRN (16:45)
[2017-10-18] MEDS ORDERED: ONDANSETRON HCL 4 MG/2 ML VIAL IV PUSH PRN (20:30)
[2017-10-18] MEDS: ATORVASTATIN 40 MG TAB PO SCH (21:34)
[2017-10-18] MEDS: DOCUSATE SODIUM 50 MG/SENNA 8.6 MG TAB PO SCH (21:34)
[2017-10-18] MEDS: FAMOTIDINE 20 MG TAB PO SCH (21:35)
[2017-10-19] VITALS (27 sets, daily range): BP systolic 148–169; BP diastolic 67–74; PULSE 55–83; RESP 14–18; TEMP 97.9–99.8; O2SAT 93–95
[2017-10-19 05:54] LABS: HEMATOCRIT 36.4 % (35.0-46.0); HEMOGLOBIN 12.5 GM/DL (11.6-15.3); MEAN CELL VOLUME 84.8 FL (80.0-100.0); MEAN CORPUSCULAR HGB CONC 34.2 % (32.0-36.0); MEAN PLATELET VOLUME 7.9 FL (7.0-11.0); PLATELET COUNT 146 TH/MM3 (150-450); WHITE BLOOD COUNT 13.6 TH/MM3 (4.0-11.0)
[2017-10-19] MEDS: LEVOTHYROXINE SODIUM 75 MCG TAB PO SCH (05:56)
[2017-10-19 06:12] LABS: BICARBONATE 28.1 MEQ/L (21.0-32.0); CALCIUM 8.4 MG/DL (8.5-10.1); CREATININE 0.84 MG/DL (0.50-1.00)
[2017-10-19] MEDS: ASPIRIN 81 MG CHEW TAB PO SCH (10:25)
[2017-10-19] MEDS: DOCUSATE SODIUM 50 MG/SENNA 8.6 MG TAB PO SCH ×2 (10:25→20:22)
[2017-10-19] MEDS: FAMOTIDINE 20 MG TAB PO SCH ×2 (10:25→20:22)
[2017-10-19] MEDS: ENOXAPARIN SODIUM 30 MG/0.3 ML SYRINGE SQ SCH (10:25)
--- NOTE | 2017-10-19 10:40 | PD.VS.PN ---
Subjective POD #: 1 Procedure(s): L QUILLER MACHINE FIXER TEA w/ patch EVAR with 2 docking limbs R SFA TEA w/ patch Subjective/Hospital Course Pt alert in NAD/OOB to chair Pt w/o Right heel discomfort this am Pt c/o mild discomfort L groin region Denied abdominal/back pain LE warm with motor intact Pain controlled Objective Vitals/I&O Date Time Temp Pulse Resp B/P (MAP) Pulse Ox O2 Delivery O2 Flow Rate FiO2 10/19/17 09:00 69 10/19/17 08:00 72 10/19/17 08:00 95 Nasal Cannula 2.00 10/19/17 08:00 98.3 72 14 148/67 (94) 95 10/19/17 07:00 62 10/19/17 06:00 57 10/19/17 05:00 55 10/19/17 04:00 73 10/19/17 03:45 95 Nasal Cannula 2.00 10/19/17 03:45 98.0 60 18 151/70 (97) 95 10/19/17 03:00 55 10/19/17 02:00 57 10/19/17 01:00 58 10/19/17 00:00 62 10/18/17 23:33 55 10/18/17 23:15 Nasal Cannula 2.00 10/18/17 23:10 92 Nasal Cannula 1.00 10/18/17 23:10 97.5 59 18 157/73 (101) 92 10/18/17 23:00 51 10/18/17 22:00 54 10/18/17 21:35 Nasal Cannula 1.00 10/18/17 21:34 94 Nasal Cannula 2.00 10/18/17 21:30 95 Nasal Cannula 2.00 10/18/17 21:30 97.9 79 18 170/74 (106) 95 Arterial Line 10/18/17 21:00 58 10/18/17 20:00 56 10/18/17 19:00 57 10/18/17 18:00 58 10/18/17 17:30 97.6 59 16 174/79 (110) 94 10/18/17 17:30 16 10/18/17 17:30 16 10/18/17 17:14 67 14 162/75 (104) 98 Nasal Cannula 2 10/18/17 15:00 61 16 169/77 (107) 98 Nasal Cannula 2 10/18/17 14:00 65 16 164/76 (105) 97 Nasal Cannula 2 10/18/17 13:43 15 10/18/17 13:30 65 16 153/70 (97) 97 Nasal Cannula 2 10/18/17 13:02 15 10/18/17 13:00 66 16 161/70 (100) 97 Nasal Cannula 2 10/18/17 12:45 64 16 157/70 (99) 96 Nasal Cannula 2 10/18/17 12:30 97.6 67 15 163/70 (101) 96 Nasal Cannula 2 10/18/17 12:15 66 15 167/70 (102) 98 Nasal Cannula 3 10/18/17 12:00 65 15 157/72 (100) 97 Nasal Cannula 3 165/64 (97) 10/18/17 11:45 68 15 156/74 (101) 96 Nasal Cannula 3 163/64 (97) 10/18/17 11:30 69 15 150/75 (100) 100 Nasal Cannula 4 160/62 (94) 10/18/17 11:20 97.6 73 16 151/70 (97) 99 Nasal Cannula 4 154/59 (90) 10/19/17 10/19/17 10/19/17 07:00 15:00 23:00 Intake Total 480 ml Output Total 550 ml Balance -70 ml Exam: GENERAL: A&Ox3, NAD, GCS15 SKIN: LE Warm and dry w/ motor intact Provena wound vacs in place R/L groin/ bilat groins soft w/o swelling or hematoma CARDIOVASCULAR: + S1,S2 w/o M/G/R RESPIRATORY: Breath sounds equal bilaterally. No accessory muscle use. GASTROINTESTINAL: Abdomen soft, non-tender, nondistended. MUSCULOSKELETAL: No cyanosis, or edema. Palpable L DP Phasic R DP Laboratory Laboratory Tests Test 10/19/17 04:13 White Blood Count 13.6 Red Blood Count 4.30 Hemoglobin 12.5 Hematocrit 36.4 Mean Corpuscular Volume 84.8 Mean Corpuscular Hemoglobin 29.0 Mean Corpuscular Hemoglobin Concent 34.2 Red Cell Distribution Width 16.0 Platelet Count 146 Mean Platelet Volume 7.9 Blood Urea Nitrogen 13 Creatinine 0.84 Random Glucose 92 Calcium Level 8.4 Sodium Level 136 Potassium Level 4.1 Chloride Level 101 Carbon Dioxide Level 28.1 Anion Gap 7 Estimat Glomerular Filtration Rate 66 Assessment and Plan Assessment: (1) H/O endovascular stent graft for abdominal aortic aneurysm (2) PAD (peripheral artery disease) Plan Pt with a PMH of Rapidly expanding AAA, PAD Pt S/P EVAR with R/L groin reconstruction POD 1 c/o left groin discomfort Plan Pain control PT/OOB Monika DUPONT [facility]/[place] [phone] Discharge Planning 2-3 days Monika Yi Oct 19, 2017 10:40
[2017-10-19] MEDS ORDERED: PILL SPLITTER OTHER PRN (15:45)
[2017-10-19] MEDS: ATORVASTATIN 40 MG TAB PO SCH (20:22)
[2017-10-19] MEDS ORDERED: ZOLPIDEM TARTRATE 5 MG TAB PO ONE (21:00)
[2017-10-20] VITALS (25 sets, daily range): BP systolic 145–165; BP diastolic 66–71; PULSE 81–98; RESP 16–20; TEMP 98.8–99.7; O2SAT 93–96
[2017-10-20] MEDS: LEVOTHYROXINE SODIUM 75 MCG TAB PO SCH (05:31)
[2017-10-20] MEDS: ENOXAPARIN SODIUM 30 MG/0.3 ML SYRINGE SQ SCH (09:47)
[2017-10-20] MEDS: DOCUSATE SODIUM 50 MG/SENNA 8.6 MG TAB PO SCH ×2 (09:47→20:10)
[2017-10-20] MEDS: ASPIRIN 81 MG CHEW TAB PO SCH (09:47)
[2017-10-20] MEDS: FAMOTIDINE 20 MG TAB PO SCH ×2 (09:47→20:10)
--- NOTE | 2017-10-20 15:06 | PD.CAR.PN ---
CVT Progress Note Subjective/Hospital Course: Patient is status post EVAR and bilateral groin reconstructions with patch Groins are clean and dry Flow to the feet is intact Patient was getting out of bed this morning alone and the courses disoriented she fell and I found her on her knees holding on to the bed. Examined the patient carefully she did not sustain any injuries from this event Doing well at this time can be discharged tomorrow Objective: Vital Signs Date Time Temp Pulse Resp B/P (MAP) Pulse Ox O2 Delivery O2 Flow Rate FiO2 10/20/17 14:00 98 10/20/17 13:00 84 10/20/17 12:00 86 10/20/17 11:00 96 Nasal Cannula 2.00 10/20/17 11:00 99.7 92 16 145/66 (92) 96 10/20/17 11:00 92 10/20/17 10:00 88 10/20/17 09:00 86 10/20/17 08:00 82 10/20/17 08:00 95 Nasal Cannula 2.00 10/20/17 08:00 99.6 84 20 148/67 (94) 95 10/20/17 07:00 82 10/20/17 06:02 83 10/20/17 05:00 87 10/20/17 04:00 87 10/20/17 03:20 98.8 89 18 159/71 (100) 93 10/20/17 03:20 93 Nasal Cannula 2.00 10/20/17 03:00 91 10/20/17 02:00 88 10/20/17 01:00 92 10/20/17 00:00 81 10/19/17 23:30 93 Nasal Cannula 2.00 10/19/17 23:30 97.9 83 18 155/68 (97) 93 10/19/17 23:00 80 10/19/17 22:00 82 10/19/17 21:00 78 10/19/17 20:30 95 Nasal Cannula 2.00 10/19/17 20:30 99.8 76 18 169/74 (105) 95 10/19/17 20:00 78 10/19/17 19:00 74 10/19/17 18:00 77 10/19/17 17:00 77 10/19/17 16:00 72 10/19/17 15:40 14 Result Diagram: 10/19/17 0413 10/19/17 0413 Arin Whittingotn MD Oct 20, 2017 15:06
[2017-10-20] MEDS: ATORVASTATIN 40 MG TAB PO SCH (20:10)
[2017-10-21] VITALS (25 sets, daily range): BP systolic 157–187; BP diastolic 70–82; PULSE 77–92; RESP 14–18; TEMP 98.6–99.1; O2SAT 92–96
[2017-10-21] MEDS: LEVOTHYROXINE SODIUM 75 MCG TAB PO SCH (06:14)
[2017-10-21] MEDS: DOCUSATE SODIUM 50 MG/SENNA 8.6 MG TAB PO SCH ×2 (09:00→20:52)
[2017-10-21] MEDS: FAMOTIDINE 20 MG TAB PO SCH ×2 (10:15→20:53)
[2017-10-21] MEDS: ENOXAPARIN SODIUM 30 MG/0.3 ML SYRINGE SQ SCH (10:15)
[2017-10-21] MEDS: ASPIRIN 81 MG CHEW TAB PO SCH (10:15)
--- NOTE | 2017-10-21 15:47 | PD.VS.PN ---
Subjective POD #: 3 Procedure(s): L BLOOD BANK CREDIT CLERK TEA w/ patch EVAR with 2 docking limbs R SFA TEA w/ patch Subjective/Hospital Course Looks good. Still unsteady on feet terence po + BM pain controlled Objective Vitals/I&O Date Time Temp Pulse Resp B/P (MAP) Pulse Ox O2 Delivery O2 Flow Rate FiO2 10/21/17 14:00 84 10/21/17 13:00 78 10/21/17 12:00 78 10/21/17 11:00 80 10/21/17 11:00 78 14 175/77 (109) 96 10/21/17 11:00 96 Room Air 10/21/17 10:00 82 10/21/17 09:00 84 10/21/17 08:00 86 10/21/17 07:00 78 10/21/17 07:00 93 Room Air 10/21/17 07:00 98.7 80 16 166/74 (104) 93 10/21/17 06:03 82 10/21/17 05:02 77 10/21/17 04:36 89 10/21/17 03:32 81 10/21/17 03:25 92 Room Air 10/21/17 03:25 98.9 81 18 157/70 (99) 92 10/21/17 02:03 86 10/21/17 01:03 91 10/21/17 00:15 89 10/20/17 23:25 93 Room Air 10/20/17 23:25 99.6 92 17 149/67 (94) 93 10/20/17 23:25 96 10/20/17 22:26 93 10/20/17 21:34 92 10/20/17 20:15 88 10/20/17 19:20 90 10/20/17 19:20 99.4 86 18 145/67 (93) 93 10/20/17 19:20 93 Room Air 10/20/17 18:00 90 10/20/17 17:00 84 10/20/17 16:00 86 10/21/17 10/21/17 10/21/17 07:00 15:00 23:00 Intake Total 240 ml Balance 240 ml Exam: B groins soft, Provena intact Assessment and Plan Assessment: (1) H/O endovascular stent graft for abdominal aortic aneurysm (2) PAD (peripheral artery disease) Plan POD#3 Looks good needs rehab given age, fragility Discharge Planning Sunday to rehab Raphael Pittman MD Oct 21, 2017 15:47
[2017-10-21] MEDS: ATORVASTATIN 40 MG TAB PO SCH (20:52)
[2017-10-22] VITALS (16 sets, daily range): BP systolic 146–182; BP diastolic 70–82; PULSE 76–92; RESP 16–18; TEMP 97.9–98.5; O2SAT 94–98
[2017-10-22] MEDS: LEVOTHYROXINE SODIUM 75 MCG TAB PO SCH (05:01)
[2017-10-22] MEDS: hydrALAZINE HCL 20 MG/ML VIAL IV PUSH PRN ×2 (07:39→11:29)
[2017-10-22] MEDS: ASPIRIN 81 MG CHEW TAB PO SCH (09:37)
[2017-10-22] MEDS: FAMOTIDINE 20 MG TAB PO SCH (09:37)
[2017-10-22] MEDS: DOCUSATE SODIUM 50 MG/SENNA 8.6 MG TAB PO SCH (09:37)
[2017-10-22] MEDS: ENOXAPARIN SODIUM 30 MG/0.3 ML SYRINGE SQ SCH (09:38)
--- NOTE | 2017-10-22 09:41 | PD.VS.PN ---
Subjective POD #: 4 Procedure(s): L BRICK CATCHER TEA w/ patch EVAR with 2 docking limbs R SFA TEA w/ patch Subjective/Hospital Course Pt in bed w/o complaints Provena wound vacs in place (bilateral groins) Pt ambulating with assistance Objective Vitals/I&O Date Time Temp Pulse Resp B/P (MAP) Pulse Ox O2 Delivery O2 Flow Rate FiO2 10/22/17 07:50 179/77 (111) 10/22/17 07:21 95 Room Air 10/22/17 07:21 98.5 80 18 182/82 (115) 95 10/22/17 06:09 76 10/22/17 05:07 80 10/22/17 04:50 87 10/22/17 03:25 98.1 79 16 146/73 (97) 94 10/22/17 03:25 94 Room Air 10/22/17 03:22 82 10/22/17 02:40 83 10/22/17 01:14 82 10/22/17 00:21 91 10/21/17 23:45 95 Room Air 10/21/17 23:45 98.9 83 18 167/75 (105) 95 10/21/17 23:05 92 10/21/17 22:25 86 10/21/17 21:15 82 10/21/17 20:00 94 Room Air 10/21/17 20:00 99.1 84 16 164/76 (105) 94 10/21/17 20:00 82 10/21/17 18:00 84 10/21/17 17:00 88 10/21/17 16:00 82 10/21/17 15:00 82 10/21/17 15:00 93 Room Air 10/21/17 15:00 98.6 78 18 187/82 (117) 93 10/21/17 14:00 84 10/21/17 13:00 78 10/21/17 12:00 78 10/21/17 11:00 80 10/21/17 11:00 78 14 175/77 (109) 96 10/21/17 11:00 96 Room Air 10/21/17 10:00 82 10/22/17 10/22/17 10/22/17 07:00 15:00 23:00 Intake Total 240 ml Balance 240 ml Exam: GENERAL: A&OX3,NAD,GCS15 SKIN: LE Warm and dry/ motor intact Incisions to Bilateral groins intact w/ erythema noted at the incision line, NO D/S/O CARDIOVASCULAR: Regular rate and rhythm without murmurs, gallops, or rubs. RESPIRATORY: Breath sounds equal bilaterally. No accessory muscle use. GASTROINTESTINAL: Abdomen soft, non-tender, nondistended. MUSCULOSKELETAL: No cyanosis, or edema. Palpable R/L DP Assessment and Plan Assessment: (1) H/O endovascular stent graft for abdominal aortic aneurysm (2) PAD (peripheral artery disease) Plan POD#4 Looks good Pt unable to walk w/o assistance will need continued rehabilitative services for strengthening and gait training also for her given age and fragility Plan D/C today to Rehab Provena wound vacs removed Continue PT/OOB Monika DUPONT [facility]/[place] [phone] Discharge Planning Clear for D/C to rehab today Monika Yi Oct 22, 2017 09:41
[2017-10-22] MEDS ORDERED: PERC5TAB12 PO (09:46)
--- NOTE | 2017-10-22 09:57 | PD.VS.DC ---
Discharge Summary Admission Date: Oct 18, 2017 at 06:19 Discharge Date: Oct 22, 2017 Admission Diagnosis: (1) AAA (abdominal aortic aneurysm) without rupture (2) PAD (peripheral artery disease) Discharge Diagnosis: (1) H/O endovascular stent graft for abdominal aortic aneurysm ICD Codes: Z95.828 - Presence of other vascular implants and grafts (2) PAD (peripheral artery disease) ICD Codes: I73.9 - Peripheral vascular disease, unspecified (3) AAA (abdominal aortic aneurysm) without rupture ICD Codes: I71.4 - Abdominal aortic aneurysm, without rupture Brief History from admission 76 yo female with rapidly expanding AAA (4.1 to 5.1 cm in several months) but no new abdominal or back pain Procedure(s): L DIE WELDER TEA w/ patch EVAR with 2 docking limbs R SFA TEA w/ patch Significant Findings GENERAL: A&OX3,NAD,GCS15 SKIN: LE Warm and dry/ motor intact Incisions to Bilateral groins intact w/ erythema noted at the incision line, NO D/S/O CARDIOVASCULAR: Regular rate and rhythm without murmurs, gallops, or rubs. RESPIRATORY: Breath sounds equal bilaterally. No accessory muscle use. GASTROINTESTINAL: Abdomen soft, non-tender, nondistended. MUSCULOSKELETAL: No cyanosis, or edema. Palpable R/L DP Allergies Coded Allergies Type Severity Reaction Last Updated Verified Sulfa (Sulfonamide Antibiotics) Allergy Mild CAN'T REMEMBER REACTION 10/18/17 No bupropion Adverse Reaction Severe Rash 10/18/17 Yes vancomycin Adverse Reaction Mild ITCHINESS, REDNESS 10/18/17 No 10/20/17 10/20/17 10/21/17 10/21/17 10/22/17 10/22/17 06:00 18:00 06:00 18:00 06:00 18:00 Intake Total 480 ml 720 ml 240 ml 720 ml 240 ml Output Total 550 ml 525 ml 300 ml Balance -70 ml 195 ml 240 ml 420 ml 240 ml Intake Oral 480 ml 720 ml 240 ml 720 ml 240 ml Output Urine Total 550 ml 525 ml 300 ml # Voids 2 2 3 # Bowel Movements 0 Orders Procedure Category Date Status Time Famotidine (Pepcid) MED 10/19/17 In Process 21:00 Pill Splitter (Pill MED 10/19/17 In Process Splitter) 15:45 Zolpidem (Ambien) MED 10/19/17 Complete 21:00 Hydralazine Inj MED 10/21/17 In Process (Apresoline Inj) 16:30 Attending Discharge DISCHARGE 10/22/17 Transmitted Order Vital Signs Date Time Temp Pulse Resp B/P (MAP) Pulse Ox O2 Delivery O2 Flow Rate FiO2 10/22/17 07:50 179/77 (111) 10/22/17 07:21 95 Room Air 10/22/17 07:21 98.5 80 18 182/82 (115) 95 10/22/17 06:09 76 10/22/17 05:07 80 10/22/17 04:50 87 10/22/17 03:25 98.1 79 16 146/73 (97) 94 10/22/17 03:25 94 Room Air 10/22/17 03:22 82 10/22/17 02:40 83 10/22/17 01:14 82 10/22/17 00:21 91 10/21/17 23:45 95 Room Air 10/21/17 23:45 98.9 83 18 167/75 (105) 95 10/21/17 23:05 92 10/21/17 22:25 86 10/21/17 21:15 82 10/21/17 20:00 94 Room Air 10/21/17 20:00 99.1 84 16 164/76 (105) 94 10/21/17 20:00 82 10/21/17 18:00 84 10/21/17 17:00 88 10/21/17 16:00 82 10/21/17 15:00 82 10/21/17 15:00 93 Room Air 10/21/17 15:00 98.6 78 18 187/82 (117) 93 10/21/17 14:00 84 10/21/17 13:00 78 10/21/17 12:00 78 10/21/17 11:00 80 10/21/17 11:00 78 14 175/77 (109) 96 10/21/17 11:00 96 Room Air 10/21/17 10:00 82 10/21/17 09:00 84 10/21/17 08:00 86 10/21/17 07:00 78 10/21/17 07:00 93 Room Air 10/21/17 07:00 98.7 80 16 166/74 (104) 93 10/21/17 06:03 82 10/21/17 05:02 77 10/21/17 04:36 89 10/21/17 03:32 81 10/21/17 03:25 92 Room Air 10/21/17 03:25 98.9 81 18 157/70 (99) 92 10/21/17 02:03 86 10/21/17 01:03 91 10/21/17 00:15 89 10/20/17 23:25 93 Room Air 10/20/17 23:25 99.6 92 17 149/67 (94) 93 10/20/17 23:25 96 10/20/17 22:26 93 10/20/17 21:34 92 10/20/17 20:15 88 10/20/17 19:20 90 10/20/17 19:20 99.4 86 18 145/67 (93) 93 10/20/17 19:20 93 Room Air 10/20/17 18:00 90 10/20/17 17:00 84 10/20/17 16:00 86 10/20/17 15:00 88 10/20/17 15:00 94 Room Air 10/20/17 15:00 99.4 84 18 165/71 (102) 96 10/20/17 14:00 98 10/20/17 13:00 84 10/20/17 12:00 86 10/20/17 11:00 96 Nasal Cannula 2.00 10/20/17 11:00 99.7 92 16 145/66 (92) 96 10/20/17 11:00 92 10/20/17 10:00 88 10/20/17 09:00 86 10/20/17 08:00 82 10/20/17 08:00 95 Nasal Cannula 2.00 10/20/17 08:00 99.6 84 20 148/67 (94) 95 10/20/17 07:00 82 10/20/17 06:02 83 10/20/17 05:00 87 10/20/17 04:00 87 10/20/17 03:20 98.8 89 18 159/71 (100) 93 10/20/17 03:20 93 Nasal Cannula 2.00 10/20/17 03:00 91 10/20/17 02:00 88 10/20/17 01:00 92 10/20/17 00:00 81 10/19/17 23:30 93 Nasal Cannula 2.00 10/19/17 23:30 97.9 83 18 155/68 (97) 93 10/19/17 23:00 80 10/19/17 22:00 82 10/19/17 21:00 78 10/19/17 20:30 95 Nasal Cannula 2.00 10/19/17 20:30 99.8 76 18 169/74 (105) 95 10/19/17 20:00 78 10/19/17 19:00 74 10/19/17 18:00 77 10/19/17 17:00 77 10/19/17 16:00 72 10/19/17 15:40 14 10/19/17 15:00 98.3 74 16 165/71 (102) 94 10/19/17 15:00 74 10/19/17 15:00 94 Nasal Cannula 2.00 10/19/17 14:00 72 10/19/17 13:00 75 10/19/17 12:00 78 10/19/17 11:00 74 10/19/17 11:00 95 Nasal Cannula 2.00 10/19/17 11:00 73 18 157/70 (99) 95 10/19/17 10:00 73 Hospital Course: 76 yo female with rapidly expanding AAA (4.1 to 5.1 cm in several months) but no new abdominal or back pain Pt s/p L DIE WELDER TEA w/ patch/EVAR with 2 docking limbs/R SFA TEA w/ patch POD 0 Pt alert in NAD c/o mild Right heel discomfort Denied abdominal/back pain LE warm with motor intact Pain controlled POD 1 Pt alert in NAD/OOB to chair Pt w/o Right heel discomfort this am Pt c/o mild discomfort L groin region Denied abdominal/back pain LE warm with motor intact Pain controlled POD 2 Patient is status post EVAR and bilateral groin reconstructions with patch Groins are clean and dry Flow to the feet is intact Patient was getting out of bed this morning alone and the courses disoriented she fell and I found her on her knees holding on to the bed. Examined the patient carefully she did not sustain any injuries from this event Doing well at this time can be discharged tomorrow POD 3 Looks good. Still unsteady on feet terence po + BM pain controlled POD 4 Pt in bed w/o complaints Provena wound vacs in place (bilateral groins) Pt ambulating with assistance Pt unable to walk w/o assistance will need continued rehabilitative services for strengthening and gait training also for her given age and fragility Pt medically cleared for D/C to Rehab Arranged out pt follow up in 3W with a post op CTA A/P (post EVAR) and an FAIZA Discharge Condition: Good Discharge Disposition: Discharge to SNF Discharge Instructions: May shower then pat dry bilat groin incisions NO TUB BATHS until incision is fully healed Continue with a heart healthy diet Continue rehabilitative services for strengthening and gait training Leave bilat groin incisions open to air May cleanse with sterile NS then pat dry If drainage present may apply a dry bordered gauze Call the office to report any increased redness, drainage or swelling Monika DUPONT [facility] [phone] Any questions or concerns: Call [facility] V[facility] Surgery at [facility] [phone] Monika Yi Oct 22, 2017 09:57
--- NOTE | 2017-10-23 14:25 | MP ---
cc: RACIEL PITTMAN DATE OF SURGERY 10/18/17 PRIMARY DIAGNOSIS Abdominal aortic aneurysm, peripheral arterial occlusive disease POSTOPERATIVE DIAGNOSIS Abdominal aortic aneurysm, peripheral arterial occlusive disease PROCEDURE 1. Left common femoral artery endarterectomy with patch angioplasty. 2. Endovascular exclusion of abdominal aortic aneurysm with a modular bifurcated device with two docking limbs. 3. Right SFA endarterectomy and patch angioplasty. CATHERINE Pittman MD LENS CEMENTER SURGEON Rodrigo PATHAK Ms. Adan is a 76-year old lady who has a 5.1 cm abdominal aortic aneurysm that is asymptomatic, however, it has grown 1 cm in the past several months. She is a candidate for endovascular repair. She has preexisting occlusive disease and I felt that groin reconstruction to facilitate endograft placement would be in her best interest. She was taken to the operating room for this procedure. PROCEDURE IN DETAIL Informed consent was obtained from the patient. She is taken to the operating room, placed supine on the operating table. Appropriate time-out was taken to ensure patient identify and the operative site and planned procedure. One gram of Ancef was initiated prior to skin incision, will be discontinued after a single preoperative dose. Everyone in the room agreed with time-out and we proceeded. She was prepped from her nipples to her knees. A vertical incision was made in the patient's left groin, carried down to the subcutaneous tissue with electrocautery. The external iliac artery, common femoral artery and superficial femoral and profunda were all dissected free and encircled with vessel loops. A 21 gauge micropuncture needle was used to access the right common femoral artery. This was exchanged using Seldinger technique for a micropuncture sheath through which a 0.025 Storq wire was introduced. The micropuncture sheath was exchanged for a 5-Mongolian sheath which was used to dilate skin and subcutaneous tissue and arteriotomy. Two Perclose ProGlide sutures were inserted and tagged for later use. The short 8-Mongolian sheath was then introduced. The patient was systemically heparinized and rebolused throughout the case to keep the ACT greater than 250. Proximal and distal control of the left common femoral artery, profunda and superficial femoral artery were all obtained with profunda clamps and a longitudinal arteriotomy was made with an 11 blade and extended with Emory scissors. The artery was endarterectomized with a [place] endarterectomy knife and a reasonable endpoint was obtained proximally and distally. A bovine pericardial patch was brought up on the field and sewn on with running 5-0 Prolene suture. At the completion, it was flushed and noted to be hemostatic. We then accessed with center of the patch with a 21 gauge micropuncture needle. This was exchanged using Seldinger technique for a micropuncture sheath through which a 0.025 Storq wire was introduced and the micropuncture sheath was exchanged for a long 8-Mongolian 25 cm sheath. Over the Storq wire, a marker flush catheter was placed on the left-hand side and to the right-hand percutaneous 8-Mongolian sheath a stork wire was exchanged for Lunderquist wire. The main device which was a Cook Zenith 26 x 82 was then introduced and positioned proximally to the level of the renal artery. An angiogram was confirmed which located the renal arteries and the device was deployed down the contralateral gate. Top cap was deployed without difficulty with interval angiography confirming the location of the renal arteries. Through the left-hand sheath and marker catheter, a road runner wire was placed and the marker catheter was exchanged for a Cobra catheter and using the cobra and road runner we were able to navigate into the contralateral gate of the main device and this was confirmed angiographically. A Lunderquist wire was then advanced and a marker flush catheter was used to make the location of the left hypogastric artery. The contralateral limb which was a Zenith flex 13 x 90 was inserted and deployed without difficulty. The dilator for the delivery sheath was removed. The remainder of the main device was deployed and the top cap was recaptured. A marker catheter was placed up the right-hand side and the right hypogastric artery was identified at its ipsilateral limb which was a Zenith flex 13 x 74 was then introduced and to flow without difficulty. Delivery system was removed and a CODA balloon was used to balloon the proximal distal ends of the endograft as well as the junctions. The completion angiogram showed excellent result with patency of both renal arteries as well as both hypogastric arteries. There was only a sluggish type 2 endoleak identified. The wire, catheter and sheath were removed from the right groin. The Perclose was tied down and pressure held for hemostasis. On the left-hand side, the sheath was removed and the patch was repaired with 6-0 interrupted sutures. Hemostasis was achieved in left groin. There was a nice Doppler signal in the left foot but a weak one in the right foot and a vertical incision was made in the patient's right groin and carried down to subcutaneous tissue with electrocautery. The patient had a known high femoral bifurcation and we dissected out the SFA, profunda and common femoral artery. These vessels were clamped. The Perclose were removed with a longitudinal arteriotomy and the SFA was endarterectomized with a nice proximal distal end point and a patch was then brought up on the field and sewn on with running 5-0 Prolene suture. At the completion, it was flushed and became hemostatic. There was a Doppler signal in the foot. Both wounds were irrigated, infiltrated with Marcaine and closed with 2-0 Polysorb, 3-0 Polysorb and 4-0 Monocryl. Sponge and needles counts were correct at the end of the case. I was present and scrubbed to perform the entire procedure. MD SHAWNEE Black/ /4:58 AM /9:40 AM RIC
== END 2017-10-22 12:48 | DRG 269 ==
LOC: HSDI 06:19 → HCPC 18:31
PROVIDERS: ADMIT Surgery; ATTEND Surgery
PROC: 04CL3ZZ Extirpation of Matter from Left Femoral Artery, Percutaneous Approach (ICD-10-PCS; 2017-10-18)
PROC: 04UL3KZ Supplement Left Femoral Artery with Nonautologous Tissue Substitute, Percutaneous Approach (ICD-10-PCS; 2017-10-18)
PROC: 04UK3KZ Supplement Right Femoral Artery with Nonautologous Tissue Substitute, Percutaneous Approach (ICD-10-PCS; 2017-10-18)
PROC: 04V03DZ Restriction of Abdominal Aorta with Intraluminal Device, Percutaneous Approach (ICD-10-PCS; principal; 2017-10-18 07:34)
PROC: 04CK3ZZ Extirpation of Matter from Right Femoral Artery, Percutaneous Approach (ICD-10-PCS; 2017-10-18 07:34)
DX: I71.4 Abdominal aortic aneurysm, without rupture (principal); J44.9 Chronic obstructive pulmonary disease, unspecified; I10 Essential (primary) hypertension; I73.9 Peripheral vascular disease, unspecified; E03.9 Hypothyroidism, unspecified; F17.210 Nicotine dependence, cigarettes, uncomplicated; R41.0 Disorientation, unspecified; R26.2 Difficulty in walking, not elsewhere classified; Z85.118 Personal history of other malignant neoplasm of bronchus and lung; W06.XXXA Fall from bed, initial encounter; Y92.230 Patient room in hospital as the place of occurrence of the external cause; R94.31 Abnormal electrocardiogram [ECG] [EKG]
CPT/HCPCS: 76937; 80048; 85027; 86850; 86900; 86901; 86920; C1725; C1769; C1874; J0131; J0360; J0690; J1644; J1650; J2270; J2720; J3010; Q9967

== ENCOUNTER 2018-01-03 18:52 | Inpatient (IN) | payer MEDICARE ==
[2018-01-03] VITALS (7 sets, daily range): BP systolic 70–141; BP diastolic 40–95; PULSE 40–72; RESP 18–22; TEMP 97.6; O2SAT 92–99
[~2018-01-03] VITALS: Ht 157.5 cm; Wt 59.8 kg
[~2018-01-03 18:52] MED LIST changes: +ATROPINE SULFATE 1 MG/10 ML SYRINGE IV ONE; +PERC5TAB12 PO
[2018-01-03] MEDS ORDERED: SODIUM CHLOR 0.9% 1000 ML INJ 1,000 ML IV ONE (19:02)
[2018-01-03] MEDS ORDERED: NOREPINEPHRINE 4 MG/4 ML AMP ONE (19:04)
[2018-01-03] MEDS ORDERED: SODIUM CHLORIDE 0.9% FLUSH 10 ML FLUSH IVF PRN (19:15)
[2018-01-03] MEDS ORDERED: HEPARIN SODIUM - IV 10,000 UNITS/10 ML VIAL ONE (19:19)
[2018-01-03] MEDS ORDERED: HEPARIN-NS/PF FLUSH BAG 1,000 ML IV FLUSH ONE (19:19)
[2018-01-03] MEDS ORDERED: HEPARIN SODIUM - IV 10,000 UNITS/10 ML VIAL IV PUSH STA (19:20)
[2018-01-03 19:28] LABS: AUTOMATED NEUTROPHIL # 7.4 TH/MM3 (1.8-7.7); BASOPHIL # 0.2 TH/MM3 (0-0.2); BASOPHIL % 1.4 % (0.0-2.0); EOSINOPHIL # 0.3 TH/MM3 (0-0.4); EOSINOPHIL % 2.9 % (0.0-4.0); HEMATOCRIT 33.3 % (35.0-46.0); HEMOGLOBIN 10.9 GM/DL (11.6-15.3); LYMPH % 21.2 % (9.0-44.0); LYMPHOCYTE # 2.4 TH/MM3 (1.0-4.8); MEAN CELL VOLUME 86.6 FL (80.0-100.0); MEAN CORPUSCULAR HEMOGLOBIN 28.4 PG (27.0-34.0); MEAN CORPUSCULAR HGB CONC 32.8 % (32.0-36.0); MONO % 9.5 % (0.0-8.0); MONOCYTE # 1.1 TH/MM3 (0-0.9); PLATELET COUNT 181 TH/MM3 (150-450); RED BLOOD COUNT 3.85 MIL/MM3 (4.00-5.30); RED CELL DISTRIBUTION WIDTH 17.1 % (11.6-17.2); WHITE BLOOD COUNT 11.4 TH/MM3 (4.0-11.0)
[2018-01-03 19:33] LABS: INTERNATIONAL NORMALIZED RATIO 1.2 RATIO; PROTHROMBIN TIME - PATIENT 12.4 SEC (9.8-11.6)
--- NOTE | 2018-01-03 19:36 | PD ---
HPI Chief Complaint: STEMI Alert Time Seen by Provider: 19:02 Travel History International Travel<30 days: No Contact w/Intl Traveler<30days: No Traveled to known affect area: No History of Present Illness HPI 77-year-old woman, presents to the emergency department after collapse. Reportedly was on her way to the restroom when she did not quite make it in class. Family heard her fall. Denied LOC. Patient denies hitting her head but has a small abrasion to her forehead. Paramedics arrived to state when he stood up she lost consciousness again. She has been hypertensive and bradycardic with them. They noted inferior ST elevations with her typical changes in the she was called as a stimulant in the field. She has recent medical history of a AAA repair in October with Dr. Pittman. Patient is unable to provide any additional history. History Past Medical History Narrative Medical Obtained from old records History of lung CA Hypertension in the past, not on any medications now, only medication is aspirin AAA, status post endovascular repair with Dr. Pittman in October COPD Peripheral arterial disease Social History Alcohol Use: Yes (DAILY) Tobacco Use: Yes (1/2 PPD) Allergies-Medications (Allergen,Severity, Reaction): Coded Allergies: Sulfa (Sulfonamide Antibiotics) (Unverified Allergy, Mild, CAN'T REMEMBER REACTION, 10/18/17) bupropion (Verified Adverse Reaction, Severe, Rash, 10/18/17) vancomycin (Unverified Adverse Reaction, Mild, ITCHINESS, REDNESS, 10/18/17 ) IMMEDIATE RELIEF WITH BENADRYL Reported Meds & Prescriptions Reported Meds & Active Scripts Active Percocet (Oxycodone-Acetaminophen) 5-325 mg Tab 1 Tab PO Q4H PRN Reported Lipitor (Atorvastatin Calcium) 10 Mg Tab 10 Mg PO HS Aspirin DR (Aspirin) 81 Mg Tabdr 81 Mg PO DAILY Levothyroxine (Levothyroxine Sodium) 75 Mcg Tab 75 Mcg PO DAILY Review of Systems Except as stated in HPI: all other systems reviewed are Neg Physical Exam Narrative GENERAL: Ill-appearing 77-year-old woman, pale, sluggishly responsive. SKIN: Focused skin assessment warm/dry. HEAD: Atraumatic. Normocephalic. EYES: Pupils equal and round. No scleral icterus. No injection or drainage. ENT: No nasal bleeding or discharge. Mucous membranes pink and moist. NECK: Trachea midline. No JVD. CARDIOVASCULAR: Heart rate slow, diminished pulses. No appreciable murmurs peer RESPIRATORY: Some mild tachypnea. GASTROINTESTINAL: Abdomen soft, non-tender, nondistended. Hepatic and splenic margins not palpable. MUSCULOSKELETAL: No obvious deformities. No clubbing. No cyanosis. No edema. NEUROLOGICAL: Decreased alertness. No obvious focal deficits. Data Data Last Documented VS Vital Signs Date Time Temp Pulse Resp B/P (MAP) Pulse Ox O2 Delivery O2 Flow Rate FiO2 01/03/18 18:56 97.6 40 22 70/40 (50) 92 Orders Orders Troponin I (01/03/18 19:02) Ckmb (Isoenzyme) Profile (01/03/18 19:02) Complete Blood Count With Diff (01/03/18 19:02) I-Stat Profile (01/03/18 19:02) I-Stat Creatinine (01/03/18 19:02) Calcium (01/03/18 19:02) Magnesium (Mg) (01/03/18 19:02) Prothrombin Time / Inr (Pt) (01/03/18 19:02) Act Partial Throm Time (Ptt) (01/03/18 19:02) B-Type Natriuretic Peptide (01/03/18 19:02) Chest, Single Ap (01/03/18 19:02) Electrocardiogram (01/03/18 19:02) Oxygen Administration (01/03/18 19:02) Iv Access Insert/Monitor (01/03/18 19:02) Oximetry (01/03/18 19:02) Sodium Chlor 0.9% 1000 Ml Inj (Ns 1000 M (01/03/18 19:02) Sodium Chloride 0.9% Flush (Ns Flush) (01/03/18 19:15) Norepinephrine Inj (Levophed Inj) (01/03/18 19:04) Cardiac Catheterization (01/03/18 ) Heparin-Ns/Pf Flush Bag (Heparin-Ns/Pf F (01/03/18 19:19) Heparin Inj (Heparin Inj) (01/03/18 19:19) Heparin Inj (Heparin Inj) (01/03/18 19:20) Labs Laboratory Tests Test 01/03/18 19:00 White Blood Count 11.4 TH/MM3 Red Blood Count 3.85 MIL/MM3 Hemoglobin 10.9 GM/DL Bedside Hemoglobin 10.2 G/DL Hematocrit 33.3 % Bedside Hematocrit 30.0 % Mean Corpuscular Volume 86.6 FL Mean Corpuscular Hemoglobin 28.4 PG Mean Corpuscular Hemoglobin Concent 32.8 % Red Cell Distribution Width 17.1 % Platelet Count 181 TH/MM3 Mean Platelet Volume 8.0 FL Neutrophils (%) (Auto) 65.0 % Lymphocytes (%) (Auto) 21.2 % Monocytes (%) (Auto) 9.5 % Eosinophils (%) (Auto) 2.9 % Basophils (%) (Auto) 1.4 % Neutrophils # (Auto) 7.4 TH/MM3 Lymphocytes # (Auto) 2.4 TH/MM3 Monocytes # (Auto) 1.1 TH/MM3 Eosinophils # (Auto) 0.3 TH/MM3 Basophils # (Auto) 0.2 TH/MM3 CBC Comment DIFF FINAL Differential Comment Bedside Sodium 141 MMOL/L Bedside Potassium 3.0 MMOL/L Bedside Chloride 100 MMOL/L Bedside Blood Urea Nitrogen 8 MG/DL Bedside Creatinine 1.0 MG/DL Bedside Glucose 168 MG/DL [facility] Medical Decision Making Medical Screen Exam Complete: Yes Emergency Medical Condition: Yes Interpretation(s) My review of initial EKG 656: Junctional escape rhythm with no clear P waves and inferior ST elevations with lateral reciprocal depressions, concerning for inferior/RV infarct. Repeat EKG done at 7:04 PM shows no change. Differential Diagnosis AL, dissection, electrolyte abnormality, other Narrative Course Medical decision making 69-year-old presents emerged department with weakness and near syncope, bradycardia, inferior ST elevation AL on her EKG, without chest pain or trouble breathing. Patient unable to provide much additional history but is improved after restarting vasopressors. Blood pressures improved and mental status is improved some. Denies any chest pain. Unclear if the heart rate is causing the ST changes or she is having an inferior AL causing the bradycardia. She was called a STEMI alert after her initial EKG in the emergency department. I spoke with Dr. Manzano's. We got the stat potassium, repeat EKG, stabilize during the emergency department given her hemodynamic instability. Repeat EKG showed persistent changes, discussed with Dr. Maldonado again, and he presented to the bedside. Patient was initially refusing intervention but appeared overtly confused. Son was at the bedside and had a discussion with Dr. Maldonado. Following this, patient was taken to the [facility]. Was a little bit delayed in the diagnostic uncertainty, and patient's initial inability and unwillingness to provide informed consent. Critical Care Narrative Aggregate critical care time was 35 minutes. Time to perform other separately billable procedures was not included in the critical care time. My time did not include minutes spent treating any other patients simultaneously or on activities that did not directly contribute to the patient's treatment. The services I provided to this patient were to treat and/or prevent clinically significant deterioration that could result in: , disability, worsening dysfunction, unrecognized AL, unrecognized electrolyte abnormality. I provided critical care services requiring my management, as noted below: Chart data review, documentation time, medication orders and management, vital sign assessments/reviewing monitor data, ordering and reviewing lab tests, ordering and interpreting/reviewing x-rays and diagnostic studies, care of the patient and discussion of the patient with the admitting physicians. Diagnosis Primary Impression: ST elevation myocardial infarction (STEMI) of inferior wall Additional Impression: Bradycardia Admitting Information Admitting Physician Requests: Jhonny Apodaca MD Jan 03, 2018 19:36
[2018-01-03 19:39] LABS: CALCIUM 7.7 MG/DL (8.5-10.1)
[2018-01-03 19:44] LABS: MAGNESIUM 1.7 MG/DL (1.5-2.5)
[2018-01-03 19:47] LABS: TROPONIN I LESS THAN 0.02 NG/ML (0.02-0.05)
--- NOTE | 2018-01-03 19:55 | RADRPT ---
EXAM DATE/TIME: 01/03/2018 19:09 [facility] COMPARISON: CHEST SINGLE AP, February 25, 2017, 10:18. INDICATIONS : Stroke alert. MEDICAL HISTORY : None. SURGICAL HISTORY : None. ENCOUNTER: Initial ACUITY: 1 day PAIN SCORE: Non-responsive. LOCATION: Bilateral chest FINDINGS: There is shift of the heart and mediastinal structures towards the right. This increased density at t he right upper chest. Clips are seen in this region. There is postoperative change of the right third rib. There is pleural thickening or density at the right apex. These findings were present previousl y. No new abnormality seen. Remaining aspects the lungs are clear. CONCLUSION: Chronic change at the right upper chest. A new or acute abnormality is not seen. Kevin Blevins MD on January 03, 2018 at 19:51 Board Certified Radiologist. This report was verified electronically.
[2018-01-03] MEDS ORDERED: ATROPINE SULFATE 1 MG/10 ML SYRINGE ONE (20:07)
--- NOTE | 2018-01-03 21:18 | RADRPT ---
EXAM DATE/TIME: 01/03/2018 20:11 [facility] COMPARISON: CT BRAIN W/O CONTRAST, February 25, 2017, 10:44. INDICATIONS : Trauma, fall. RADIATION DOSE: 35.15 CTDIvol (mGy) MEDICAL HISTORY : Non-responsive. SURGICAL HISTORY : Non-responsive. ENCOUNTER: Initial ACUITY: 1 day PAIN SCALE: Non-responsive LOCATION: cranial TECHNIQUE: Multiple contiguous axial images were obtained of the head. Using automated exposure control and adj ustment of the mA and/or kV according to patient size, radiation dose was kept as low as reasonably a chievable to obtain optimal diagnostic quality images. DICOM format image data is available electro nically for review and comparison. FINDINGS: CEREBRUM: The ventricles and cortical sulci are widened. 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 There is mild increased density in the periventricular white matter likely related to small ves lashon ischemic change. No evidence of midline shift, mass lesion, hemorrhage or acute infarction. No e xtra-axial fluid collections are seen. POSTERIOR FOSSA: The cerebellum and brainstem are intact. The 4th ventricle is midline. The cerebellopontine angle i s unremarkable. EXTRACRANIAL: The visualized portion of the orbits is intact. There is left maxillary and sphenoid sinus disease. T here is increased density within the inferior right mastoid air cells. This is unchanged from the raudel or exam. SKULL: The calvaria is intact. No evidence of skull fracture. CONCLUSION: 1. No acute intracranial abnormality seen. 2. Atrophy. 3. Left maxillary and sphenoid sinus disease. Kevin Blevins MD on January 03, 2018 at 21:14 Board Certified Radiologist. This report was verified electronically.
--- NOTE | 2018-01-03 21:31 | CATHPROC ---
[employer] [facility] HIS Report Study Information Study Number Scheduled Start Study Start [id number] 01/03/2018 Jan 03 2018 7:20PM Referring Institution Admit Source Facility Department 1 Emergency department [facility] Physician and Clinical Staff Initial Silvano Powell Ent Consultant Pritesh Duncan RN Recorder Josh Escobedo,RT(R) Medication (Drip) Medication Time Given Dosage/Unit Concentration/Unit Diluent (ml) Solution LEVOPHED 01/03/2018 7:42:28 PM 5 mcg/min 4 mg 250 D5W Patient arrived on 5 mcg/min LEVOPHED via Peripheral IV. Pump/Drip Flow = 18.75 ml/hr using D5W with a concentration of 4 mg in 250 ml. LEVOPHED 01/03/2018 8:22:21 PM 2 mcg/min 4 mg 250 D5W 2 mcg/min LEVOPHED given in lab by Pritesh Duncan RN via Peripheral IV. Pump/Drip Flow = 7.5 ml/hr usin g D5W with a concentration of 4 mg in 250 ml. LEVOPHED 01/03/2018 8:26:51 PM 0 mcg/min 4 mg 250 D5W 0 mcg/min LEVOPHED given in lab by Pritesh Duncan RN via Peripheral IV. Pump/Drip Flow = 0 ml/hr using D5W with a concentration of 4 mg in 250 ml. stopped per protocol. Discontinued at 01/03/2018 20:27. Initial Case Assessment Cardiovascular HR Rhythm NIBP 70 stemi 107/51 Edema Present Skin color Skin None Normal Warm Dry Circulatory - Right Pulses Dorsalis Pedis Femoral 1 3 Scale (0,1,2,3,4,d) Circulatory - Left Pulses Dorsalis Pedis Femoral 1 3 Scale (0,1,2,3,4,d) Respiration - General Respiration Rate SpO2 (%) O2 (lpm) (B/min) 18 99 15 Chronological Log Time Study Chronological Log 19:13:44 ED called. Notified dividing machine operator is ready to receive patient. 19:37:14 Patient arrived via Bed. 19:41:21 Patient Name, D.O.B, / Armband Verified By R.N. 19:41:23 Consent signed by the physician and the patient and verified by the [facility] staff. 19:41:24 Pre-op and post- op instructions given; patient acknowledges understanding of instructions. Vitals capture started with the following parameters, Patient=Adult, Interval=5 min, Initial Pr uvcoli=184 mmHg, 19:41:34 Deflation Rate=5 mmHg, Cuff placed on Left Arm Vitals capture started with the following parameters, Patient=Adult, Interval=5 min, Initial Pr swhyuf=658 mmHg, 19:42:25 Deflation Rate=5 mmHg, Cuff placed on Left Arm Patient arrived on 5 mcg/min LEVOPHED via Peripheral IV. Pump/Drip Flow = 18.75 ml/hr using D5W with a 19:42:28 concentration of 4 mg in 250 ml. 19:42:46 A # 20 IV was noted in the Antecubital (right). Grade = 0 19:43:39 HR=76 bpm, UJDL=372/51 mmhg, SpO2=94.0 %, Resp=23 B/min, Tadeo=1 19:44:01 A # 20 IV was noted in the Forearm (left). Grade = 0 Assessment: Initial Case, HR=70 BPM, Rhythm=stemi, XBOT=005/51 mmhg, Edema=None, Color=Normal, Skin = Warm, Dry 19:44:26 Right Pulses: Hakan Ped=1, Femoral=3 Left Pulses: Hakan Ped=1, Femoral=3 Respiration: Resp=18 B/min, SpO2=99 %, O2=15 lpm 19:45:03 Reference ECG taken 19:48:34 HR=91 bpm, OCDK=637/80 mmhg, SpO2=95 %, Resp=23 B/min, Tadeo=1 Dr. Maldonado called. Patient having mental status changes.Dr. Maldonado Would like patient removed fro m table and have a 19:49:[address] 19:52:50 HR=89 bpm, OBRI=288/83 mmhg, Resp=14 B/min, Tadeo=1 19:58:03 WX=457 bpm, NIBP=90/74 mmhg, Resp=20 B/min, Tadeo=1 20:03:22 [facility] urgently per Dr. Maldonado. Vitals capture started with the following parameters, Patient=Adult, Interval=5 min, Initial Pr nppeju=452 mmHg, 20:18:34 Deflation Rate=5 mmHg, Cuff placed on Left Arm Patient returned from CT. Connected to all monitors. 20:18:44 20:19:13 TEKW=702/90 mmhg, WfN3=172.0 %, Tadeo=1 Vitals capture started with the following parameters, Patient=Adult, Interval=5 min, Initial Pr lzecta=210 mmHg, 20:20:32 Deflation Rate=5 mmHg, Cuff placed on Left Arm 20:21:53 HR=78 bpm, YYGG=212/99 mmhg, MgD5=149.0 %, Resp=14 B/min, Tadeo=1 2 mcg/min LEVOPHED given in lab by Pritesh Duncan RN via Peripheral IV. Pump/Drip Flow = 7.5 ml/h r using D5W with a 20:22:21 concentration of 4 mg in 250 ml. 20:26:15 HR=78 bpm, BGCA=533/77 mmhg, IvK7=623.0 %, Resp=24 B/min, Tadeo=1 0 mcg/min LEVOPHED given in lab by Pritesh Duncan RN via Peripheral IV. Pump/Drip Flow = 0 ml/hr using D5W with a 20:26:51 concentration of 4 mg in 250 ml. stopped per protocol. Discontinued at 01/03/2018 20:27. 20:30:49 Dr. Rosado has assumed care for this patient. Dr. Rosado notified of patient status. 20:31:12 HR=75 bpm, FYJO=676/77 mmhg, OkW1=973.0 %, Resp=16 B/min, Tadeo=2 20:33:04 Dr. Rosado responded. States " Cath cx at this time, however patient may need Heart Catheter ization at a later time." 20:35:29 Waiting to transfer pt. to [facility]. Notified Dr. Mckeon that Dr Rosado is not cathing pt tonight and that pt has been assigned to [facility] room [address] Dr Mckeon will 20:35:[address] Franklin per Dr Rosado and will call Dr Franklin to notify him of pt status 20:36:05 HR=68 bpm, DSHJ=894/62 mmhg, PbN2=369.0 %, Resp=12 B/min, Tadeo=2 Kelsey from bed placement notified that pt will not be cathed tonight. Will notify lab support service tech when room is clean so pt can 20:37:23 be transferred to unit. 20:42:24 Vitals capture stopped. Vitals capture started with the following parameters, Patient=Adult, Interval=5 min, Initial Pr ifhnuz=099 mmHg, 20:42:45 Deflation Rate=5 mmHg, Cuff placed on Left Arm 20:43:34 HR=65 bpm, CWTE=561/66 mmhg, UxJ3=244.0 %, Resp=19 B/min, Tadeo=2 20:48:28 HR=62 bpm, ILSA=909/152 mmhg, Resp=21 B/min, Tadeo=2 20:53:32 HR=68 bpm, XPNO=722/73 mmhg, SpO2=99.0 %, Resp=16 B/min, Tadeo=2 20:58:22 HR=71 bpm, FOXM=484/82 mmhg, SpO2=99.0 %, Resp=25 B/min, Tadeo=2 21:04:45 HR=66 bpm, YFAF=174/78 mmhg, QlH4=871.0 %, Resp=24 B/min, Tadeo=4 21:08:50 Attempted to contact patients son by telephone. No contact was established 21:09:06 HR=61 bpm, TONS=495/92 mmhg, SpO2=99.0 %, Resp=20 B/min, Tadeo=2 21:14:01 HR=71 bpm, HAJI=527/85 mmhg, SpO2=98.0 %, Resp=20 B/min, Tadeo=2 21:18:31 HR=54 bpm, SUDO=283/64 mmhg, SpO2=98.0 %, Resp=21 B/min, Tadeo=2 21:23:24 HR=15 bpm, XOFL=390/91 mmhg, SpO2=99.0 %, Resp=20 B/min, Tadeo=2 21:23:47 Report called to EBENEZER Quezada RN 21:28:32 Patient being transfer to [facility] at this time. 21:29:41 Vitals capture stopped. End Study - Patient Disposition Complications Not selected
[2018-01-03] MEDS ORDERED: SODIUM CHLOR 0.9% 1000 ML INJ 1,000 ML IV SCH (22:05)
--- NOTE | 2018-01-03 22:08 | HHI.HP ---
[facility] Service Critical Care Medicine Primary Care Physician Trena Fernandez MD Admission Diagnosis STEMI Diagnosis: Travel History International Travel<30 Days: No Contact w/Intl Traveler <30 Da: No Traveled to Known Affected Are: No History of Present Illness 77-year-old woman, presents after collapse. Reportedly was on her way to the restroom when she did not quite make it in class. Family heard her fall. Denied LOC. Patient denies any head injury but has a small abrasion to her forehead. When paramedics arrived she stood up and lost consciousness again. She has been hypertensive and bradycardic with them. They noted inferior ST elevations with a typical changes in the STEMI alert was called. She has recent medical history of a AAA repair in October by Dr. Pittman. Patient is unable to provide any additional history. Review of Systems Constitutional: COMPLAINS OF: Dizziness, DENIES: Diaphoretic episodes, Fatigue , Fever, Weight gain, Weight loss, Chills, Change in appetite, Night Sweats Endocrine: DENIES: Abnorml menstrual pattern, Heat/cold intolerance, Polydipsia , Polyuria, Polyphagia Eyes: COMPLAINS OF: Blurred vision, DENIES: Diplopia, Eye inflammation, Eye pain, Vision loss, Photosensitivity, Double Vision Ears, nose, mouth, throat: DENIES: Tinnitus, Hearing loss, Vertigo, Nasal discharge, Oral lesions, Throat pain, Hoarseness, Ear Pain, Running Nose, Epistaxis, Sinus Pain, Toothache, Odynophagia Respiratory: DENIES: Apneas, Cough, Snoring, Wheezing, Hemoptysis, Sputum production, Shortness of breath Cardiovascular: DENIES: Chest pain, Palpitations, Syncope, Dyspnea on Exertion , PND, Lower Extremity Edema, Orthopnea, Claudication Gastrointestinal: DENIES: Abdominal pain, Black stools, Bloody stools, Constipation, Diarrhea, Nausea, Vomiting, Difficulty Swallowing, Anorexia Genitourinary: DENIES: Abnormal vaginal bleeding, Dysmenorrhea, Dyspareunia, Sexual dysfunction, Urinary frequency, Urinary incontinence, Urgency, Hematuria , Dysuria, Nocturia, Vaginal discharge Musculoskeletal: DENIES: Joint pain, Muscle aches, Stiffness, Joint Swelling, Back pain, Neck pain Integumentary: DENIES: Abnormal pigmentation, Pruritus, Rash, Nail changes, Breast masses, Breast skin changes, Nipple discharge Hematologic/lymphatic: DENIES: Bruising, Lymphadenopathy Immunologic/allergic: DENIES: Eczema, Urticaria Neurologic: COMPLAINS OF: Abnormal gait, Poor Balance, DENIES: Headache, Paresthesias, Seizures, Speech Problems, Tremor Psychiatric: DENIES: Anxiety, Confusion, Mood changes, Depression, Hallucinations, Agitation, Suicidal Ideation, Homicidal Ideation, Delusions Past Family Social History Allergies: Coded Allergies: Sulfa (Sulfonamide Antibiotics) (Unverified Allergy, Mild, CAN'T REMEMBER REACTION, 10/18/17) bupropion (Verified Adverse Reaction, Severe, Rash, 10/18/17) vancomycin (Unverified Adverse Reaction, Mild, ITCHINESS, REDNESS, 10/18/17 ) IMMEDIATE RELIEF WITH BENADRYL Past Medical History History of lung CA Hypertension in the past, not on any medications now, only medication is aspirin COPD Peripheral arterial disease Past Surgical History AAA, status post endovascular repair with Dr. Pittman in October 2017 Reported Medications Reported Meds & Active Scripts Active Percocet (Oxycodone-Acetaminophen) 5-325 mg Tab 1 Tab PO Q4H PRN Reported Lipitor (Atorvastatin Calcium) 10 Mg Tab 10 Mg PO HS Aspirin DR (Aspirin) 81 Mg Tabdr 81 Mg PO DAILY Levothyroxine (Levothyroxine Sodium) 75 Mcg Tab 75 Mcg PO DAILY Active Ordered Medications Current Medications Medications (Trade) Dose Ordered Sig/Zahra Route PRN Reason Start Time Stop Time Status Last Admin Dose Admin Sodium Chloride (NS Flush) 2 ml UNSCH PRN IVF FLUSH AFTER USING IV ACCESS 01/03/18 19:15 01/03/18 19:57 Family History No family history significant of coronary disease Social History She drinks occasionally, smokes half pack per day, denies illicit drug abuse Physical Exam Vital Signs Vital Signs Date Time Temp Pulse Resp B/P (MAP) Pulse Ox O2 Delivery O2 Flow Rate FiO2 01/03/18 21:49 97.6 72 18 141/95 (110) 98 01/03/18 19:53 46 98/48 01/03/18 19:06 54 22 81/49 (60) 97 Non-Rebreather 01/03/18 19:04 97 Non-Rebreather 15.00 01/03/18 19:01 44 20 98/48 (65) 94 Nasal Cannula 2.00 01/03/18 18:56 97.6 40 22 70/40 (50) 92 01/03/18 18:56 92 Nasal Cannula 2.00 Physical Exam GENERAL: Well-nourished, well-developed patient. SKIN: Warm and dry. HEAD: Normocephalic. EYES: No scleral icterus. No injection or drainage. NECK: Supple, trachea midline. No JVD or lymphadenopathy. CARDIOVASCULAR: Regular rate and rhythm without murmurs, gallops, or rubs. RESPIRATORY: Breath sounds equal bilaterally. No accessory muscle use. GASTROINTESTINAL: Abdomen soft, non-tender, nondistended. MUSCULOSKELETAL: No cyanosis, or edema. BACK: Nontender without obvious deformity. NEURO EXAM: GCS: 15 Mental Status: The patient is alert and oriented to person, place, and time with normal speech. Cranial Nerves: Visual acuity intact bilaterally. Visual tellez normal in all quadrants. Pupils are round, reactive to light. Extraocular movements are intact without ptosis. Hearing is normal bilaterally. Voice is normal. Tongue protrudes midline and moves symmetrically. Laboratory Laboratory Tests Test 01/03/18 19:00 White Blood Count 11.4 Red Blood Count 3.85 Hemoglobin 10.9 Bedside Hemoglobin 10.2 Hematocrit 33.3 Bedside Hematocrit 30.0 Mean Corpuscular Volume 86.6 Mean Corpuscular Hemoglobin 28.4 Mean Corpuscular Hemoglobin Concent 32.8 Red Cell Distribution Width 17.1 Platelet Count 181 Mean Platelet Volume 8.0 Neutrophils (%) (Auto) 65.0 Lymphocytes (%) (Auto) 21.2 Monocytes (%) (Auto) 9.5 Eosinophils (%) (Auto) 2.9 Basophils (%) (Auto) 1.4 Neutrophils # (Auto) 7.4 Lymphocytes # (Auto) 2.4 Monocytes # (Auto) 1.1 Eosinophils # (Auto) 0.3 Basophils # (Auto) 0.2 CBC Comment DIFF FINAL Differential Comment Prothrombin Time 12.4 Prothromb Time International Ratio 1.2 Activated Partial Thromboplast Time 27.5 Bedside Sodium 141 Bedside Potassium 3.0 Bedside Chloride 100 Bedside Blood Urea Nitrogen 8 Bedside Creatinine 1.0 Bedside Glucose 168 Calcium Level 7.7 Magnesium Level 1.7 Total Creatine Kinase 24 Troponin I LESS THAN 0.02 B-Type Natriuretic Peptide 221 Result Diagram: 01/03/181899 Imaging Last 24 hours Impressions Chest X-Ray 01/03/181901 Signed Impressions: Service Date/Time: December 19:09 - CONCLUSION: Chronic change at the right upper chest. A new or acute abnormality is not seen. Kevin Blevins MD Head CT 01/03/18 0000 Signed Impressions: Service Date/Time: December 20:11 - CONCLUSION: 1. No acute intracranial abnormality seen. 2. Atrophy. 3. Left maxillary and sphenoid sinus disease. Kevin Blevins MD Caprini VTE Risk Assessment Caprini VTE Risk Assessment: Mod/High Risk (score >= 2) Caprini Risk Assessment Model Point Value = 1 Point Value = 2 Point Value = 3 Point Value = 5 Age 41-60 Minor surgery BMI > 25 kg/m2 Swollen legs Varicose veins or History of unexplained or recurrent spontaneous Oral contraceptives or hormone replacement Sepsis (< 1 month) Serious lung disease, including pneumonia (< 1 month) Abnormal pulmonary function Acute myocardial infarction Congestive heart failure (< 1 month) History of inflammatory bowel disease Medical patient at bed rest Age 61-74 Arthroscopic surgery Major open surgery (> 45 min) Laparoscopic surgery (> 45 min) Malignancy Confined to bed (> 72 hours) Immobilizing plaster cast Central venous access Age >= 75 History of VTE Family history of VTE Factor V Leiden Prothrombin [id number] Lupus anticoagulant Anticardiolipin antibodies Elevated serum homocysteine Heparin-induced thrombocytopenia Other congenital or acquired thrombophilia Stroke (< 1 month) Elective arthroplasty Hip, pelvis, or leg fracture Acute spinal cord injury (< 1 month) Prophylaxis Regimen Total Risk Factor Score Risk Level Prophylaxis Regimen 0-1 Low Early ambulation 2 Moderate Order ONE of the following: *Sequential Compression Device (SCD) *Heparin 5000 units SQ BID 3-4 Higher Order ONE of the following medications: *Heparin 5000 units SQ TID *Enoxaparin/Lovenox 40 mg SQ daily (WT < 150 kg, CrCl > 30 mL/min) *Enoxaparin/Lovenox 30 mg SQ daily (WT < 150 kg, CrCl > 10-29 mL/min) *Enoxaparin/Lovenox 30 mg SQ BID (WT < 150 kg, CrCl > 30 mL/min) AND/OR *Sequential Compression Device (SCD) 5 or more Highest Order ONE of the following medications: *Heparin 5000 units SQ TID (Preferred with Epidurals) *Enoxaparin/Lovenox 40 mg SQ daily (WT < 150 kg, CrCl > 30 mL/min) *Enoxaparin/Lovenox 30 mg SQ daily (WT < 150 kg, CrCl > 10-29 mL/min) *Enoxaparin/Lovenox 30 mg SQ BID (WT < 150 kg, CrCl > 30 mL/min) AND *Sequential Compression Device (SCD) Assessment and Plan Assessment and Plan ST elevation PR -Stat cardiology consultation -Cardiac catheterization -Management per cardiology Coronary artery disease -Continue aspirin and atorvastatin Hypothyroidism -Levothyroxine Dyslipidemia -Atorvastatin DVT GI prophylaxis -Jacky's and SCDs -Subcu heparin -Pepcid Critical Care: The total critical care time was 35 minutes. Time to perform other separately billable procedures was not included in the critical care time. Chaz Franklin MD Jan 03, 2018 22:08
[2018-01-03] MEDS ORDERED: RESP: ALBUTEROL 2.5 MG/IPRATROPIUM 0.5 MG NEB (PRN) INH (22:15)
[2018-01-03] MEDS ORDERED: MAGNESIUM HYDROXIDE SUSP 30 ML CUP PO PRN (22:15)
[2018-01-03] MEDS ORDERED: LACTULOSE SYRUP 20 GM/30 ML CUP PO PRN (22:15)
[2018-01-03] MEDS ORDERED: HEPARIN SODIUM - SQ 10,000 UNITS/ML VIAL SQ SCH (22:15)
[2018-01-03] MEDS ORDERED: SODIUM CHLORIDE 0.9% FLUSH 10 ML FLUSH IV FLUSH PRN (22:15)
[2018-01-03] MEDS ORDERED: SENNOSIDES 8.6 MG TAB PO PRN (22:15)
[2018-01-03] MEDS ORDERED: CHLORHEXIDINE GLUCONATE 2 % 1 PACK (2 CLOTHS) TOP PRN (22:15)
[2018-01-03] MEDS ORDERED: MISCELLANEOUS NURSING INFORMATION XX SCH (22:15)
[2018-01-03] MEDS ORDERED: BISACODYL 10 MG SUPP RECTAL PRN (22:15)
[2018-01-03] MEDS ORDERED: ONDANSETRON HCL 4 MG/2 ML VIAL IV PUSH PRN (22:15)
[2018-01-03] MEDS ORDERED: TEMAZEPAM 15 MG CAP PO PRN (22:15)
[2018-01-03] MEDS ORDERED: CHLORHEXIDINE GLUCONATE 2 % 1 PACK (2 CLOTHS)(extra cloths) TOPICAL PRN (22:30)
[2018-01-03] MEDS ORDERED: SODIUM PHOSPHATE INJ 30 MMOL in SODIUM CHLOR 0.9% 250 ML INJ 240 ML IV PRN (22:45)
[2018-01-03] MEDS ORDERED: MAGNESIUM SULFATE INJ 2 GM in SODIUM CHLORIDE 0.9% INJ 96 ML IV PRN (22:45)
[2018-01-03] MEDS ORDERED: MAGNESIUM OXIDE 400 MG TAB PO PRN (22:45)
[2018-01-03] MEDS ORDERED: POTASSIUM CHLOR 20 MEQ PREMIX 100 ML IV PRN (22:45)
[2018-01-03] MEDS ORDERED: POTASSIUM PHOSPHATE MONOBASIC 500 MG TAB PO PRN (22:45)
[2018-01-03] MEDS ORDERED: POTASSIUM CHLORIDE 25 MEQ EFFERVESCENT TAB PO PRN (22:45)
[2018-01-03] MEDS ORDERED: POTASSIUM PHOSPHATE INJ 30 MMOL in SODIUM CHLOR 0.9% 250 ML INJ 250 ML IV PRN (22:45)
[2018-01-03] MEDS ORDERED: POTASSIUM PHOSPHATE MONOBASIC 500 MG TAB PO/TUBE PRN (22:45)
[2018-01-03] MEDS ORDERED: MAGNESIUM SULFATE INJ 4 GM in SODIUM CHLORIDE 0.9% INJ 92 ML IV PRN (22:45)
[2018-01-03] MEDS ORDERED: POTASSIUM CHLOR 40 MEQ PREMIX 100 ML IV PRN ×2 (22:45)
[2018-01-03] MEDS: oxyCODONE/ACETAMINOPHEN 5 MG/325 MG TAB PO PRN (22:57)
[2018-01-04] VITALS (15 sets, daily range): BP systolic 93–167; BP diastolic 59–93; PULSE 63–83; RESP 13–41; TEMP 97.4–98.2; O2SAT 89–100
[2018-01-04 00:10] LABS: ALKALINE PHOSPHATASE 84 U/L (45-117); TOTAL BILIRUBIN ADULT 0.3 MG/DL (0.2-1.0); TOTAL PROTEIN 6.8 GM/DL (6.4-8.2)
[2018-01-04 00:15] LABS: ALBUMIN 2.7 GM/DL (3.4-5.0); ALT (GPT) 20 U/L (10-53); AST (GOT) 73 U/L (15-37); BICARBONATE 25.8 MEQ/L (21.0-32.0); BLOOD UREA NITROGEN 8 MG/DL (7-18); CALCIUM 7.9 MG/DL (8.5-10.1); CHLORIDE 106 MEQ/L (98-107); CREATININE 1.05 MG/DL (0.50-1.00); GLOMERULAR FILTRATION RATE 51 ML/MIN (>89); GLUCOSE,RANDOM 121 MG/DL (74-106); MAGNESIUM 1.7 MG/DL (1.5-2.5); PHOSPHORUS 3.2 MG/DL (2.5-4.9); SODIUM (NA) 141 MEQ/L (136-145)
[2018-01-04] MEDS: POTASSIUM CHLOR 20 MEQ PREMIX 100 ML IV PRN ×3 (00:37→08:30)
[2018-01-04] MEDS ORDERED: HEPARIN-D5W 25,000 U/250 ML 250 ML IV PRN ×2 (02:00→09:00)
[2018-01-04] MEDS: oxyCODONE/ACETAMINOPHEN 5 MG/325 MG TAB PO PRN ×2 (03:06→08:48)
[2018-01-04 03:22] LABS: AUTOMATED NEUTROPHIL # 7.6 TH/MM3 (1.8-7.7); BASOPHIL # 0.1 TH/MM3 (0-0.2); BASOPHIL % 1.4 % (0.0-2.0); EOSINOPHIL # 0.1 TH/MM3 (0-0.4); EOSINOPHIL % 1.4 % (0.0-4.0); HEMATOCRIT 27.9 % (35.0-46.0); HEMOGLOBIN 9.4 GM/DL (11.6-15.3); LYMPH % 12.8 % (9.0-44.0); LYMPHOCYTE # 1.3 TH/MM3 (1.0-4.8); MEAN CELL VOLUME 86.5 FL (80.0-100.0); MEAN CORPUSCULAR HEMOGLOBIN 29.3 PG (27.0-34.0); MEAN CORPUSCULAR HGB CONC 33.8 % (32.0-36.0); MEAN PLATELET VOLUME 7.9 FL (7.0-11.0); MONO % 7.3 % (0.0-8.0); MONOCYTE # 0.7 TH/MM3 (0-0.9); NEUT % 77.1 % (16.0-70.0); PLATELET COUNT 149 TH/MM3 (150-450); RED BLOOD COUNT 3.22 MIL/MM3 (4.00-5.30); RED CELL DISTRIBUTION WIDTH 16.8 % (11.6-17.2); WHITE BLOOD COUNT 9.8 TH/MM3 (4.0-11.0)
[2018-01-04 03:35] LABS: INTERNATIONAL NORMALIZED RATIO 1.2 RATIO; PROTHROMBIN TIME - PATIENT 12.3 SEC (9.8-11.6)
[2018-01-04 03:47] LABS: ALBUMIN 2.5 GM/DL (3.4-5.0); ALT (GPT) 21 U/L (10-53); AST (GOT) 83 U/L (15-37); BICARBONATE 26.1 MEQ/L (21.0-32.0); BLOOD UREA NITROGEN 9 MG/DL (7-18); CALCIUM 7.8 MG/DL (8.5-10.1); CHLORIDE 109 MEQ/L (98-107); CREATININE 0.98 MG/DL (0.50-1.00); GLOMERULAR FILTRATION RATE 55 ML/MIN (>89); GLUCOSE,RANDOM 97 MG/DL (74-106); MAGNESIUM 1.6 MG/DL (1.5-2.5); PHOSPHORUS 3.1 MG/DL (2.5-4.9); SODIUM (NA) 142 MEQ/L (136-145)
[2018-01-04 03:50] LABS: ALKALINE PHOSPHATASE 75 U/L (45-117); TOTAL BILIRUBIN ADULT 0.3 MG/DL (0.2-1.0); TOTAL PROTEIN 6.1 GM/DL (6.4-8.2)
[2018-01-04] MEDS: CHLORHEXIDINE GLUCONATE 2 % 1 PACK (2 CLOTHS)(taper/protocol) TOPICAL SCH (04:00)
[2018-01-04] MEDS: CHLORHEXIDINE GLUCONATE 2 % 1 PACK (2 CLOTHS) TOP SCH (04:11)
--- NOTE | 2018-01-04 05:46 | RADRPT ---
EXAM DATE/TIME: 01/04/2018 05:18 [place] COMPARISON: No previous studies available for comparison. INDICATIONS : Trauma, fall. Swelling and pain to lateral left femur. RADIATION DOSE: 25.90 CTDIvol (mGy) MEDICAL HISTORY : Non-responsive. SURGICAL HISTORY : Non-responsive. ENCOUNTER: Initial ACUITY: 1 day PAIN SCALE: 10/10 LOCATION: Left lateral femur TECHNIQUE: Volumetric scanning of the femur was performed. Using automated exposure control and adjustment of t he mA and/or kV according to patient size, radiation dose was kept as low as reasonably achievable to obtain optimal diagnostic quality images. DICOM format image data is available electronically for review and comparison. FINDINGS: There is a large fusiform shaped fluid collection in the lateral aspect of the proximal left thigh. I t measures approximately 7.1 x 10.6 cm in greatest transaxial dimension and 22.4 cm in length. Within the fluid collection is a fluid/fluid level typical of layering hematocrit suggesting this is an acu te or subacute hematoma. Much of the hematoma appears to be within the tensor fascia tobin and the adj acent deep subcutaneous fat. Some small intramuscular blood is noted of rectus femoris as well. No de finite muscle tears are demonstrated. Induration and surgical clips seen in the left inguinal region suggesting recent vascular surgery. No fractures. Mild osteoarthritis seen of the left hip. No acute abnormality seen in the visualized p ortions of the pelvic cavity. The patient does have diverticulosis of the colon. CONCLUSION: Large hematoma laterally of the left thigh as above. Intact femur. Kevin Shabazz MD on January 04, 2018 at 5:37 Board Certified Radiologist. This report was verified electronically.
[2018-01-04] MEDS: LEVOTHYROXINE SODIUM 75 MCG TAB PO SCH (06:03)
[2018-01-04] MEDS: ACETAMINOPHEN 325 MG TAB PO PRN (06:07)
[2018-01-04] MEDS ORDERED: SODIUM CHLOR 0.9% 250 ML INJ 250 ML IV ONE ×2 (07:30→13:15)
--- NOTE | 2018-01-04 07:54 | PD.VS.CON ---
History of Present Illness Chief Complaint: L thigh hematoma after fall Consult Requested by: Dr. Her History of Present Illness 77 yo female well known to me, s/p EVAR and B groin reconstruction in Oct 2017. Did very well from EVAR and was seen 1m after with surveillance CT and found to have well positioned endograft, no leak and a smaller AAA. She was at home and fell, and according to her, was trapped between toilet and tub. Presented to ED. Admitted to MICU and has escalating troponins (now in excess of 30). Noted to have L lateral thigh hematoma. Does endorse pain in that area but no motor dysfunction. Hct 33 to 28. Past/Family/Social History Past Medical History AAA lung CA hypothyroidism CAD Past Surgical History lobectomy EVAR w/ B groin reconstruction Social History + tobacco Family History [place] Home Medications Active Scripts Oxycodone-Acetaminophen (Percocet) 5-325 mg Tab, 1 TAB PO Q4H Y for PAIN, #30 TAB 0 Refills Prov:Monika Yi 10/22/17 Reported Medications Atorvastatin (Lipitor) 10 Mg Tab, 10 MG PO HS for Cholesterol Management, #30 TAB 0 Refills 10/16/[address] (Aspirin DR) 81 Mg Tabdr, 81 MG PO DAILY, TAB 0 Refills 10/16/17 Levothyroxine (Levothyroxine) 75 Mcg Tab, 75 MCG PO DAILY for Thyroid, #30 TAB 0 Refills 02/25/17 Coded Allergies: Sulfa (Sulfonamide Antibiotics) (Unverified Allergy, Mild, CAN'T REMEMBER REACTION, 10/18/17) bupropion (Verified Adverse Reaction, Severe, Rash, 10/18/17) vancomycin (Unverified Adverse Reaction, Mild, ITCHINESS, REDNESS, 10/18/17 ) IMMEDIATE RELIEF WITH BENADRYL Review of Systems Constitutional: COMPLAINS OF: Dizziness Hematologic/lymphatic: COMPLAINS OF: Bruising Neurologic: COMPLAINS OF: Poor Balance Physical Exam Vitals/I&O Date Time Temp Pulse Resp B/P (MAP) Pulse Ox O2 Delivery O2 Flow Rate FiO2 01/04/18 06:00 65 01/04/18 04:11 18 01/04/18 04:00 98.2 66 17 167/75 (105) 100 01/04/18 04:00 65 01/04/18 02:00 66 01/04/18 00:00 66 17 150/72 (98) 95 01/04/18 00:00 66 01/03/18 22:00 70 01/03/18 21:49 97.6 72 18 141/95 (110) 98 01/03/18 19:53 46 98/48 01/03/18 19:06 54 22 81/49 (60) 97 Non-Rebreather 01/03/18 19:04 97 Non-Rebreather 15.00 01/03/18 19:01 44 20 98/48 (65) 94 Nasal Cannula 2.00 01/03/18 19:00 99 15.00 100 01/03/18 19:00 99 Non-Rebreather 15.00 01/03/18 18:56 97.6 40 22 70/40 (50) 92 01/03/18 18:56 92 Nasal Cannula 2.00 01/04/18 01/04/18 01/04/18 07:00 15:00 23:00 Intake Total 240 ml Balance 240 ml Neuro: alert, oriented and conversant HEENT: abrasions but anicteric sclera Neck: no JVD Heart: reg rate Lungs: nonlabored Vascular: L groin incision well healed. Extremities: impressive lateral thigh hematoma, moderately tense but skin not immediately threatened + motor intact foot Laboratory Tests Test 01/03/18 19:00 01/03/18 19:13 01/03/18 21:45 01/03/18 23:04 White Blood Count 11.4 Red Blood Count 3.85 Hemoglobin 10.9 Bedside Hemoglobin 10.2 Hematocrit 33.3 Bedside Hematocrit 30.0 Mean Corpuscular Volume 86.6 Mean Corpuscular Hemoglobin 28.4 Mean Corpuscular Hemoglobin Concent 32.8 Red Cell Distribution Width 17.1 Platelet Count 181 Mean Platelet Volume 8.0 Neutrophils (%) (Auto) 65.0 Lymphocytes (%) (Auto) 21.2 Monocytes (%) (Auto) 9.5 Eosinophils (%) (Auto) 2.9 Basophils (%) (Auto) 1.4 Neutrophils # (Auto) 7.4 Lymphocytes # (Auto) 2.4 Monocytes # (Auto) 1.1 Eosinophils # (Auto) 0.3 Basophils # (Auto) 0.2 CBC Comment DIFF FINAL Differential Comment Prothrombin Time 12.4 Prothromb Time International Ratio 1.2 Activated Partial Thromboplast Time 27.5 Bedside Sodium 141 Bedside Potassium 3.0 Bedside Chloride 100 Bedside Blood Urea Nitrogen 8 Bedside Creatinine 1.0 Bedside Glucose 168 Calcium Level 7.7 7.9 Magnesium Level 1.7 1.7 Total Creatine Kinase 24 Troponin I LESS THAN 0.02 10.90 B-Type Natriuretic Peptide 221 Phosphorus Level 3.1 3.2 Nasal Screen MRSA (PCR) MRSA DETECTED Blood Urea Nitrogen 8 Creatinine 1.05 Random Glucose 121 Total Protein 6.8 Albumin 2.7 Alkaline Phosphatase 84 Aspartate Amino Transf (AST/SGOT) 73 Alanine Aminotransferase (ALT/SGPT) 20 Total Bilirubin 0.3 Sodium Level 141 Potassium Level 3.1 Chloride Level 106 Carbon Dioxide Level 25.8 Anion Gap 9 Estimat Glomerular Filtration Rate 51 Test 01/04/18 02:44 White Blood Count 9.8 Red Blood Count 3.22 Hemoglobin 9.4 Hematocrit 27.9 Mean Corpuscular Volume 86.5 Mean Corpuscular Hemoglobin 29.3 Mean Corpuscular Hemoglobin Concent 33.8 Red Cell Distribution Width 16.8 Platelet Count 149 Mean Platelet Volume 7.9 Neutrophils (%) (Auto) 77.1 Lymphocytes (%) (Auto) 12.8 Monocytes (%) (Auto) 7.3 Eosinophils (%) (Auto) 1.4 Basophils (%) (Auto) 1.4 Neutrophils # (Auto) 7.6 Lymphocytes # (Auto) 1.3 Monocytes # (Auto) 0.7 Eosinophils # (Auto) 0.1 Basophils # (Auto) 0.1 CBC Comment AUTO DIFF Differential Comment AUTO DIFF CONFIRMED Prothrombin Time 12.3 Prothromb Time International Ratio 1.2 Activated Partial Thromboplast Time 67.8 Blood Urea Nitrogen 9 Creatinine 0.98 Random Glucose 97 Total Protein 6.1 Albumin 2.5 Calcium Level 7.8 Phosphorus Level 3.1 Magnesium Level 1.6 Alkaline Phosphatase 75 Aspartate Amino Transf (AST/SGOT) 83 Alanine Aminotransferase (ALT/SGPT) 21 Total Bilirubin 0.3 Sodium Level 142 Potassium Level 3.5 Chloride Level 109 Carbon Dioxide Level 26.1 Anion Gap 7 Estimat Glomerular Filtration Rate 55 Troponin I 30.90 Last 48 hours Impressions Lower Extremity CT 01/04/18 0000 Signed Impressions: Service Date/Time: Thursday, January 04, 2018 05:18 - CONCLUSION: Large hematoma laterally of the left thigh as above. Intact femur. Kevin Shabazz MD Chest X-Ray 01/03/18 1902 Signed Impressions: Service Date/Time: December 19:09 - CONCLUSION: Chronic change at the right upper chest. A new or acute abnormality is not seen. Kevin Blevins MD Head CT 01/03/18 0000 Signed Impressions: Service Date/Time: December 20:11 - CONCLUSION: 1. No acute intracranial abnormality seen. 2. Atrophy. 3. Left maxillary and sphenoid sinus disease. Kevin Blevins MD Assessment and Plan Plan Thigh hematoma after fall and STEMI 1. Indications for drainage of thigh would include HD instability, worsening drop in Hct, or overlying skin compromise. Most likely, she'll need drainage at some point but given that it is not necessary at this point, it is most prudent to evaluate/treat her cardiac issues first 2. Wrap L LE toes to thigh for compression 3. Serial Hct 4. No thigh/vascular contra-indication to treated elevated troponin in any way 5. My review of CT shows the hematoma to be separate from the groin vascular reconstruction Will follow closely. Raphael Pittman MD FACS PRVI [employer] [facility] [phone] Raphael Pittman MD Jan 04, 2018 07:54
[2018-01-04] MEDS ORDERED: HEPARIN SODIUM - IV 10,000 UNITS/10 ML VIAL IV PUSH PRN ×2 (08:00)
[2018-01-04] MEDS: SODIUM CHLORIDE 0.9% FLUSH 10 ML FLUSH IV FLUSH SCH ×2 (08:01→21:05)
--- NOTE | 2018-01-04 08:28 | PD.CONS ---
HPI Consult Requested By Primary Care Physician Trena Fernandez MD History of Present Illness 77-year-old female with past medical history of lung cancer, COPD, PVD, HLD, AAA repair, hypothyroidism who initially presented to the ED after a fall and possible syncopal episode yesterday. The patient presented to the ED confused. Her EKG showed ST elevations and a STEMI alert was called. However, the cardiac catheterization was canceled secondary to mental status changes and no complaints of chest pain. The patient's ST changes have now resolved on repeat EKG. Troponin has trended up to 30. Patient also has a left lateral thigh hematoma and vascular surgery has been consulted. The patient states she went to the bathroom yesterday, and after she stood up she feels like she passed out. She denies ever having any chest pain. Her only complaints at this time are that she wants to eat and she is having pain in her left lateral thigh. (Omar Hummel) Review of Systems Negative except as stated in the HPI (Omar Hummel) Past Family Social History Allergies: Coded Allergies: Sulfa (Sulfonamide Antibiotics) (Unverified Allergy, Mild, CAN'T REMEMBER REACTION, 10/18/17) bupropion (Verified Adverse Reaction, Severe, Rash, 10/18/17) vancomycin (Unverified Adverse Reaction, Mild, ITCHINESS, REDNESS, 10/18/17 ) IMMEDIATE RELIEF WITH BENADRYL Past Medical History lung cancer, COPD, PVD, HLD, AAA repair, hypothyroidism Past Surgical History AAA, status post endovascular repair with Dr. Bennett in October 2017 Reported Medications Reported Meds & Active Scripts Active Percocet (Oxycodone-Acetaminophen) 5-325 mg Tab 1 Tab PO Q4H PRN Reported Lipitor (Atorvastatin Calcium) 10 Mg Tab 10 Mg PO HS Aspirin DR (Aspirin) 81 Mg Tabdr 81 Mg PO DAILY Levothyroxine (Levothyroxine Sodium) 75 Mcg Tab 75 Mcg PO DAILY Active Ordered Medications Current Medications Medications (Trade) Dose Ordered Sig/Zahra Route Start Time Stop Time Status Last Admin (Ecotrin Ec) 81 mg DAILY PO 01/04/18 09:00 (Lipitor) 10 mg HS PO 01/04/18 21:00 (Synthroid) 75 mcg DAILY@0700 PO 01/04/18 07:00 01/04/18 06:03 (Percocet 5-325 Mg) 1 tab Q4H PRN PO 01/03/18 22:15 01/04/18 03:06 Sodium Chloride 1,000 ml @ 84 mls/hr [id number] IV 01/03/18 22:05 01/03/18 22:51 (NS Flush) 2 ml UNSCH PRN IV FLUSH 01/03/18 22:15 (NS Flush) 2 ml BID IV FLUSH 01/04/18 09:00 01/04/18 08:01 (Tylenol) 650 mg Q6H PRN PO 01/03/18 22:15 01/04/18 06:07 (Pepcid Inj) 20 mg Q12HR IV PUSH 01/04/18 09:00 (Zofran Inj) 4 mg Q6H PRN IV PUSH 01/03/18 22:15 (Restoril) 15 mg HS PRN PO 01/03/18 22:15 (Duoneb Neb) 1 ampule Q2HR NEB PRN INH 01/03/18 22:15 Miscellaneous Information 1 Q361D XX 01/03/18 22:15 01/03/18 22:15 (Chlorhexidine 2% Cloth) 3 pack Taper DAILY@04 TOP 01/04/18 04:00 12/31/18 03:59 01/04/18 04:11 (Chlorhexidine 2% Cloth) 3 pack UNSCH PRN TOP 01/03/18 22:15 (Kacy-Colace) 1 tab BID PO 01/04/18 09:00 (Milk Of Magnesia Liq) 30 ml Q12H PRN PO 01/03/18 22:15 (Senokot) 17.2 mg Q12H PRN PO 01/03/18 22:15 (Dulcolax Supp) 10 mg DAILY PRN RECTAL 01/03/18 22:15 (Lactulose Liq) 30 ml DAILY PRN PO 01/03/18 22:15 Miscellaneous Information Patient in critical care unit? Ass... Q361D .XX 01/03/18 22:30 01/03/18 23:49 (Chlorhexidine 2% Cloth) 3 pack DAILY@04 TOPICAL 01/04/18 04:00 01/08/18 04:01 (Chlorhexidine 2% Cloth) 3 pack UNSCH PRN TOPICAL 01/03/18 22:30 01/08/18 22:18 Potassium Chloride 100 ml @ 50 mls/hr Q2H PRN IV 01/03/18 22:45 Potassium Chloride 100 ml @ 50 mls/hr Q2H PRN IV 01/03/18 22:45 01/04/18 04:24 (K-Lyte Cl Eff) 50 meq UNSCH PRN PO 01/03/18 22:45 Potassium Chloride 100 ml @ 25 mls/hr UNSCH PRN IV 01/03/18 22:45 Potassium Chloride 100 ml @ 50 mls/hr Q2H PRN IV 01/03/18 22:45 Magnesium Sulfate 4 gm/Sodium Chloride 100 ml @ 50 mls/hr UNSCH PRN IV 01/03/18 22:45 (Mag-Ox) 800 mg UNSCH PRN PO 01/03/18 22:45 Magnesium Sulfate 2 gm/Sodium Chloride 100 ml @ 50 mls/hr UNSCH PRN IV 01/03/18 22:45 (K-Phos) 2,000 mg Q4H PRN PO 01/03/18 22:45 Sodium Phosphate 30 mmol/Sodium Chloride 250 ml @ 42 mls/hr UNSCH PRN IV 01/03/18 22:45 (K-Phos) 2,000 mg UNSCH PRN PO/TUBE 01/03/18 22:45 Potassium Phosphate 30 mmol/ Sodium Chloride 260 ml @ 42 mls/hr UNSCH PRN IV 01/03/18 22:45 (Heparin Inj) 5,000 units UNSCH PRN IV PUSH 01/04/18 08:00 (Heparin Inj) 2,500 units UNSCH PRN IV PUSH 01/04/18 08:00 Heparin Sodium/ Dextrose 250 ml @ 7 mls/hr TITRATE PRN IV 01/04/18 02:00 01/04/18 04:07 Sodium Chloride 250 ml @ 15 mls/hr ONCE ONCE IV 01/04/18 07:30 01/05/18 00:09 Family History No family history significant of coronary disease Social History She drinks occasionally, smokes half pack per day, denies illicit drug abuse (Omar Hummel) Physical Exam Vital Signs Vital Signs Date Time Temp Pulse Resp B/P (MAP) Pulse Ox O2 Delivery O2 Flow Rate FiO2 01/04/18 06:00 65 01/04/18 04:11 18 01/04/18 04:00 98.2 66 17 167/75 (105) 100 01/04/18 04:00 65 01/04/18 02:00 66 01/04/18 00:00 66 17 150/72 (98) 95 01/04/18 00:00 66 01/03/18 22:00 70 01/03/18 21:49 97.6 72 18 141/95 (110) 98 01/03/18 19:53 46 98/48 01/03/18 19:06 54 22 81/49 (60) 97 Non-Rebreather 01/03/18 19:04 97 Non-Rebreather 15.00 01/03/18 19:01 44 20 98/48 (65) 94 Nasal Cannula 2.00 01/03/18 19:00 99 15.00 100 01/03/18 19:00 99 Non-Rebreather 15.00 01/03/18 18:56 97.6 40 22 70/40 (50) 92 01/03/18 18:56 92 Nasal Cannula 2.00 Physical Exam GENERAL: Well-developed well-nourished. In no acute distress. NECK: No carotid bruits. No JVD. CARDIOVASCULAR: Regular rate and rhythm. No murmur appreciated. RESPIRATORY: No accessory muscle use. Clear to auscultation. Breath sounds equal bilaterally. MUSCULOSKELETAL: No clubbing or cyanosis. No edema. NEUROLOGICAL: Awake and alert. Normal speech. SKIN: Large left thigh hematoma. Laboratory Laboratory Tests Test 01/03/18 19:00 01/03/18 19:13 01/03/18 21:45 01/03/18 23:04 White Blood Count 11.4 Red Blood Count 3.85 Hemoglobin 10.9 Bedside Hemoglobin 10.2 Hematocrit 33.3 Bedside Hematocrit 30.0 Mean Corpuscular Volume 86.6 Mean Corpuscular Hemoglobin 28.4 Mean Corpuscular Hemoglobin Concent 32.8 Red Cell Distribution Width 17.1 Platelet Count 181 Mean Platelet Volume 8.0 Neutrophils (%) (Auto) 65.0 Lymphocytes (%) (Auto) 21.2 Monocytes (%) (Auto) 9.5 Eosinophils (%) (Auto) 2.9 Basophils (%) (Auto) 1.4 Neutrophils # (Auto) 7.4 Lymphocytes # (Auto) 2.4 Monocytes # (Auto) 1.1 Eosinophils # (Auto) 0.3 Basophils # (Auto) 0.2 CBC Comment DIFF FINAL Differential Comment Prothrombin Time 12.4 Prothromb Time International Ratio 1.2 Activated Partial Thromboplast Time 27.5 Bedside Sodium 141 Bedside Potassium 3.0 Bedside Chloride 100 Bedside Blood Urea Nitrogen 8 Bedside Creatinine 1.0 Bedside Glucose 168 Calcium Level 7.7 7.9 Magnesium Level 1.7 1.7 Total Creatine Kinase 24 Troponin I LESS THAN 0.02 10.90 B-Type Natriuretic Peptide 221 Phosphorus Level 3.1 3.2 Nasal Screen MRSA (PCR) MRSA DETECTED Blood Urea Nitrogen 8 Creatinine 1.05 Random Glucose 121 Total Protein 6.8 Albumin 2.7 Alkaline Phosphatase 84 Aspartate Amino Transf (AST/SGOT) 73 Alanine Aminotransferase (ALT/SGPT) 20 Total Bilirubin 0.3 Sodium Level 141 Potassium Level 3.1 Chloride Level 106 Carbon Dioxide Level 25.8 Anion Gap 9 Estimat Glomerular Filtration Rate 51 Test 01/04/18 02:44 White Blood Count 9.8 Red Blood Count 3.22 Hemoglobin 9.4 Hematocrit 27.9 Mean Corpuscular Volume 86.5 Mean Corpuscular Hemoglobin 29.3 Mean Corpuscular Hemoglobin Concent 33.8 Red Cell Distribution Width 16.8 Platelet Count 149 Mean Platelet Volume 7.9 Neutrophils (%) (Auto) 77.1 Lymphocytes (%) (Auto) 12.8 Monocytes (%) (Auto) 7.3 Eosinophils (%) (Auto) 1.4 Basophils (%) (Auto) 1.4 Neutrophils # (Auto) 7.6 Lymphocytes # (Auto) 1.3 Monocytes # (Auto) 0.7 Eosinophils # (Auto) 0.1 Basophils # (Auto) 0.1 CBC Comment AUTO DIFF Differential Comment AUTO DIFF CONFIRMED Prothrombin Time 12.3 Prothromb Time International Ratio 1.2 Activated Partial Thromboplast Time 67.8 Blood Urea Nitrogen 9 Creatinine 0.98 Random Glucose 97 Total Protein 6.1 Albumin 2.5 Calcium Level 7.8 Phosphorus Level 3.1 Magnesium Level 1.6 Alkaline Phosphatase 75 Aspartate Amino Transf (AST/SGOT) 83 Alanine Aminotransferase (ALT/SGPT) 21 Total Bilirubin 0.3 Sodium Level 142 Potassium Level 3.5 Chloride Level 109 Carbon Dioxide Level 26.1 Anion Gap 7 Estimat Glomerular Filtration Rate 55 Troponin I 30.90 (Long,Omar D. PA) Result Diagram: 01/04/18 0244 01/04/18 0244 Imaging Last Impressions Lower Extremity CT 01/04/18 0000 Signed Impressions: Service Date/Time: Thursday, January 04, 2018 05:18 - CONCLUSION: Large hematoma laterally of the left thigh as above. Intact femur. Kevin Shbaazz MD Chest X-Ray 01/03/18 190 Signed Impressions: Service Date/Time: December 19:09 - CONCLUSION: Chronic change at the right upper chest. A new or acute abnormality is not seen. Kevin Blevins MD Head CT 01/03/18 0000 Signed Impressions: Service Date/Time: December 20:11 - CONCLUSION: 1. No acute intracranial abnormality seen. 2. Atrophy. 3. Left maxillary and sphenoid sinus disease. Kevin Blevins MD (Omar Hummel) Assessment and Plan Assessment and Plan 77-year-old female with past medical history of lung cancer, COPD, PVD, HLD, AAA repair, hypothyroidism who initially presented to the ED after a fall and possible syncopal episode yesterday. The patient presented to the ED confused. Her EKG showed ST elevations and a STEMI alert was called. However, the cardiac catheterization was canceled secondary to mental status changes and no complaints of chest pain. The patient's ST changes have now resolved on repeat EKG. Troponin has trended up to 30. Patient also has a left lateral thigh hematoma and vascular surgery has been consulted. Possible STEMI: The patient has remained stable. She never had any chest pain. At this time with large hematoma, would be hesitant to commit the patient to antiplatelet therapy at this time, however eventually will need a heart catheterization but will hold off at this time. Check echocardiogram. Discussed with vascular surgery, can continue heparin drip at this time. Continue ASA. Left lateral thigh hematoma: Vascular surgery consulted, recommending conservative management currently. (Omar Hummel) Assessment and Plan Presented with syncope after urination and standing. No chest pain. EKG showed q waves with inferior ST elevation. Initially taken to [facility] by Dr. Maldonado, but cancelled due to mental status changes and concern for further bleeding. Still no CP. I suspect she has completed an inferior infarct. tolerating well. HR/BP stable. ST changes resolving. Now with traumatic thigh hematoma. Given hemodynamic stability with resolution of EKG changes and lack of symptoms and bleeding, we will not pursue LHC at this time. I discussed the case in depth with dr bennett. He recommended to reinitiate appropriate therapies for heart and he will deal with thigh hematoma when needed. asa 81 heparin gtt statin bb ast tolerated 2d echo Will follow clinical course and decide if LHC at some point. cont med mgt (Jhonny Rosado MD) Omar Hummel Jan 04, 2018 08:28 Jhonny Rosado MD Jan 04, 2018 09:28
[2018-01-04] MEDS: FAMOTIDINE 20 MG/2 ML VIAL IV PUSH SCH ×2 (08:46→21:04)
[2018-01-04] MEDS: ASPIRIN EC 81 MG TABEC PO SCH (08:48)
--- NOTE | 2018-01-04 08:48 | HHI.CCPN ---
Subjective Remarks/Hospital Course 01/03: 77-year-old woman, presents after collapse. Reportedly was on her way to the restroom when she did not quite make it in class. Family heard her fall. Denied LOC. Patient denies any head injury but has a small abrasion to her forehead. When paramedics arrived she stood up and lost consciousness again. She has been hypertensive and bradycardic with them. They noted inferior ST elevations with a typical changes in the STEMI alert was called. She has recent medical history of a AAA repair in October by Dr. Pittman. Patient is unable to provide any additional history. 01/04: Patient was taken to [facility] however cardiac catheterization was not done as patient had altered mental status in view of concerns by cardiology and then admitted to ICU. Patient was put on anticoagulation with heparin. Overnight she developed a left thigh hematoma which is noted on CT done this morning around 5:30 AM. Stopped heparin drip and consulted vascular surgery Dr. Pittman and also informed Dr. Rosado from cardiology. Patient is resting in bed complaining of pain over the left thigh hematoma site. She is otherwise awake and alert on nasal cannula maintaining her blood pressure and appears pale. Type and crossmatch was ordered with 1 unit PRBCs to be transfused stat. Objective Vital Signs Date Time Temp Pulse Resp B/P (MAP) Pulse Ox O2 Delivery O2 Flow Rate FiO2 01/04/18 06:00 65 01/04/18 04:11 18 01/04/18 04:00 98.2 167/75 (105) 100 01/03/18 19:06 Non-Rebreather 01/03/18 19:04 15.00 01/03/18 19:00 100 Intake and Output 01/04/18 01/04/18 01/05/18 08:00 16:00 00:00 Intake Total 240 ml Balance 240 ml Result Diagram: 01/04/18 0244 01/04/18 0244 Imaging Last 24 hours Impressions Chest X-Ray 01/03/18 1902 Signed Impressions: Service Date/Time: December 19:09 - CONCLUSION: Chronic change at the right upper chest. A new or acute abnormality is not seen. Kevin Blevins MD Head CT 01/03/18 0000 Signed Impressions: Service Date/Time: Thursday, January 03, 2018 20:11 - CONCLUSION: 1. No acute intracranial abnormality seen. 2. Atrophy. 3. Left maxillary and sphenoid sinus disease. Kevin Blevins MD Objective Remarks GENERAL: Well-nourished, well-developed patient. SKIN: Warm and dry. HEAD: Normocephalic. EYES: No scleral icterus. No injection or drainage. Pallor present NECK: Supple, trachea midline. No JVD or lymphadenopathy. CARDIOVASCULAR: Regular rate and rhythm without murmurs, gallops, or rubs. RESPIRATORY: Breath sounds equal bilaterally. No accessory muscle use. No wheezing or crackles GASTROINTESTINAL: Abdomen soft, non-tender, nondistended. MUSCULOSKELETAL: Large hematoma over left lateral thigh with significant tenderness. Site was marked to watch for expansion. Extremities otherwise well perfused distally and warm bilaterally. BACK: Nontender without obvious deformity. NEURO EXAM: Awake alert oriented 3, moving all 4 extremity's, grossly nonfocal. A/P Assessment and Plan ST elevation RI CAD -cardiology consulted last night. Troponin went up to 30. -Cardiac catheterization to be decided by Dr. Rosado. Discussed with vascular surgery Dr. Pittman who is okay with proceeding with anything cardiac intervention as needed including cardiac catheterization. He is okay with resuming anticoagulation with heparin as well as needed. Awaiting CBC and cardiology evaluation by Dr. Rosado. Will defer anticoagulation and antiplatelet therapy to cardiology. - May require evacuation of left thigh hematoma subsequently per Dr. Pittman. -Continue aspirin and atorvastatin Left thigh hematoma Recent AAA repair in October 2017 - Being followed by vascular surgery Dr. Pittman. - Follow serial H&H, transfuse to keep hemoglobin greater than 9 g percent. One unit PRBCs ordered now. COPD - Bronchodilators as needed. Supplemental O2. Hypothyroidism -Levothyroxine Dyslipidemia -Atorvastatin DVT GI prophylaxis -Jacky's and SCDs -Subcu heparin if anticoagulation not resumed. -Pepcid Discussed with Dr. Pittman at bedside. Discussed with Dr. Rosado. Solitario Her MD Jan 04, 2018 08:48
[2018-01-04] MEDS ORDERED: LIDOCAINE HCL 1% 50 ML VIAL ONE (10:14)
[2018-01-04 10:35] LABS: INTERNATIONAL NORMALIZED RATIO 1.2 RATIO; PROTHROMBIN TIME - PATIENT 12.5 SEC (9.8-11.6)
[2018-01-04] MEDS ORDERED: EPINEPHrine HCL (1:1000) 1 MG/ML VIAL ONE (10:48)
[2018-01-04] MEDS ORDERED: ETOMIDATE 40 MG/20 ML VIAL ONE (10:49)
[2018-01-04] MEDS ORDERED: ROCURONIUM INJ 50 MG/5 ML VIAL ONE (10:50)
--- NOTE | 2018-01-04 10:51 | EKG ---
Date Performed: 01/03/2018 Time Performed: 18:56:21 PTAGE: 77 years EKG: SUPRAVENTRICULAR BRADYCARDIA MODERATE INTRAVENTRICULAR CONDUCTION DELAY MARKED ST ELEVATION , CONSIDER INFERIOR INJURY ACUTE GA PREVIOUS TRACING : 01/02/2018 15.53 Compared to the prior study, findings of acute inferi or myocardial infarction are new. DOCTOR: Elder Garcia Interpretating Date/Time 01/04/2018 10:49:43
--- NOTE | 2018-01-04 10:51 | EKG ---
Date Performed: 01/03/2018 Time Performed: 22:33:13 PTAGE: 77 years EKG: SINUS BRADYCARDIA WITH 2ND DEGREE AV BLOCK, MOBITZ TYPE II POSSIBLE RIGHT VENTRICULAR CONDU CTION DELAY LEFT VENTRICULAR HYPERTROPHY AND ST-T CHANGE ABNORMAL ECG PREVIOUS TRACING : 01/03/2018 18.56 Compared to the prior study, ST elevation in the inferior l chaparrita has resolved. Second degree block is now present. DOCTOR: Elder Garcia Interpretating Date/Time 01/04/2018 10:50:38
--- NOTE | 2018-01-04 11:34 | EKG ---
Date Performed: 01/04/2018 Time Performed: 05:09:56 PTAGE: 77 years EKG: Sinus rhythm . Prolonged QT interval Left bundle branch block Abnormal ECG PREVIOUS TRACING : 01/03/2018 22.33 Since the previous tracing, no significant change noted DOCTOR: Elder Garcia Interpretating Date/Time 01/04/2018 11:29:06
--- NOTE | 2018-01-04 11:54 | RADRPT ---
EXAM DATE/TIME: 01/04/2018 11:25 [place] COMPARISON: CT THORAX W/O CONTRAST, February 26, 2017, 10:06. CHEST SINGLE AP, January 03, 2018, 19:09. INDICATIONS : Central line placement confirmation. History of lung cancer and lobectomy. MEDICAL HISTORY : None. SURGICAL HISTORY : None. ENCOUNTER: Subsequent ACUITY: 1 day PAIN SCORE: Non-responsive. LOCATION: Bilateral chest FINDINGS: A single AP semierect portable view the chest was obtained and demonstrates interval placement of a r ight internal jugular central venous line with the tip projected over the right side of the heart. Th e tip is not well-visualized and overlying electrocardiogram leads in this region. There is no pneumo thorax. The right apical pleural-parenchymal changes again noted with density. Mild volume loss is ag ain noted in the right hemithorax and these findings are unchanged.. The heart size remains mildly en larged with no perihilar edema. CONCLUSION: 1. No placement of right internal jugular central venous line with tip projected over the heart. No t horax. 2. Right apical pleural-parenchymal change remains consistent with scarring. There are postoperative changes status post lobectomy. Joseph Juares MD on January 04, 2018 at 11:50 Board Certified Radiologist. This report was verified electronically.
[2018-01-04 12:06] LABS: MEAN CELL VOLUME 88.4 FL (80.0-100.0); MEAN CORPUSCULAR HEMOGLOBIN 28.1 PG (27.0-34.0); MEAN CORPUSCULAR HGB CONC 31.8 % (32.0-36.0); MEAN PLATELET VOLUME 8.2 FL (7.0-11.0); PLATELET COUNT 197 TH/MM3 (150-450); RED BLOOD COUNT 2.27 MIL/MM3 (4.00-5.30); RED CELL DISTRIBUTION WIDTH 17.2 % (11.6-17.2); WHITE BLOOD COUNT 24.8 TH/MM3 (4.0-11.0)
[2018-01-04 12:18] LABS: HEMATOCRIT 20.1 % (35.0-46.0); HEMOGLOBIN 6.4 GM/DL (11.6-15.3)
[2018-01-04] MEDS ORDERED: FUROSEMIDE 40 MG/4 ML VIAL IV PUSH STA (13:06)
--- NOTE | 2018-01-04 13:21 | PD.PROCEDR ---
Procedure Note Procedure PROCEDURE PERFORMED Transvenous pacer placement under ultrasound guidance. PREOPERATIVE DIAGNOSIS STEMI, bradycardia, left bundle branch block, hypotension POSTOPERATIVE DIAGNOSIS Same INDICATIONS Symptomatic bradycardia with hypotension INFORMED CONSENT Informed consent not obtained as this was an emergent procedure. ANESTHESIA 1% Lidocaine for local infiltration anesthesia. PROCEDURE After sterile prepping and draping using 1% lidocaine for local infiltration anesthesia, the right internal jugular vein was visualized using an ultrasound vessel finder and under direct visualization was cannulated using an introducer Angiocath with dark non-pulsatile blood return. An Angiocath was advanced into the internal jugular vein without any resistance and the needle was then removed. Blood return was confirmed through the Angiocath following which a guidewire was passed through the Angiocath into the right internal jugular vein without any resistance and the Angiocath was then removed. After making a skin oseas and dilation of tract, a 6 [place] Cordis with dilator assembly was passed over the guidewire by modified Seldinger technique into the right internal jugular vein and the guidewire was then removed. Good blood return obtained through side port which was flushed and capped. After suturing the catheter in place, balloon tip bipolar pacing catheter was advanced via 6 [place] Cordis into the internal jugular vein up to the 15 cm liz and after inflating balloon and was advanced until pacer spikes were noted on monitor with good capture. A Bio-occlusive dressing with Biopatch was applied to the site. The patient tolerated the procedure well with no immediate complications noted. A postprocedure chest x-ray was ordered and reviewed with good placement of transvenous pacer catheter with tip overlying SVC. No pneumothorax on post-procedure film. (Difficulty with pacer capture initially, Dr. Rosado assisted with repositioning pacer to obtain good capture subsequently) . Pacer settings: rate 80, output 80mA, Sensitivity 1 Solitario Her MD Jan 04, 2018 13:21
[2018-01-04 13:28] LABS: ALBUMIN 1.8 GM/DL (3.4-5.0); BICARBONATE 16.6 MEQ/L (21.0-32.0); CALCIUM 6.1 MG/DL (8.5-10.1); CALCIUM-PROTEIN CORRECTED 7.5 MG/DL (8.5-10.1); CREATININE 0.83 MG/DL (0.50-1.00); TOTAL BILIRUBIN ADULT 0.3 MG/DL (0.2-1.0); TOTAL PROTEIN 4.3 GM/DL (6.4-8.2)
[2018-01-04] MEDS ORDERED: CALCIUM CHLORIDE 10% SOLN 1 GRAM/10 ML SYR ONE (13:34)
[2018-01-04] MEDS ORDERED: MAGNESIUM SULFATE 1 GM PREMIX 100 ML IV STA (13:34)
[2018-01-04] MEDS ORDERED: CALCIUM CHLORIDE INJ 1 GM in DEXTROSE 5% IN WATER 100ML INJ 100 ML IV ONE ×2 (13:45)
--- NOTE | 2018-01-04 14:08 | ECHRPT ---
Indication: Coronary Atherosclerosis CONCLUSIONS Technically difficult study. The left ventricular systolic function is low normal with an estimated ejection fraction in the rang e of 50- 55%. There was limited left ventricular wall motion assessment due to poor endocardial visualization. There is abnormal septal motion consistent with an intraventricular conduction delay. Normal left ventricular size. Mild concentric left ventricular hypertrophy. Possible mild inferior wall hypokinesis Calcification of both mitral valve leaflets. [id number] mitral valve regurgitation. There is mild tricuspid valve regurgitation. The pulmonary valve is not well visualized. BP: 158 / 113 HR: 66 Rhythm: Technical Quality:Technically difficult study FINDINGS LEFT VENTRICLE The left ventricular systolic function is low normal with an estimated ejection fraction in the rang e of 50- 55%. There was limited left ventricular wall motion assessment due to poor endocardial visualization. There is abnormal septal motion consistent with an intraventricular conduction delay. Normal left ventricular size. Mild concentric left ventricular hypertrophy. Possible mild inferior wall hypokinesis RIGHT VENTRICLE Normal right ventricular size and systolic function. LEFT ATRIUM The left atrial size is normal. RIGHT ATRIUM The right atrial size is normal. ATRIAL SEPTUM Normal atrial septal thickness without atrial level shunting by limited color doppler interrogation. AORTA The aortic root and proximal ascending aorta are normal in size on limited imaging. MITRAL VALVE Calcification of both mitral valve leaflets. [id number] mitral valve regurgitation. AORTIC VALVE Trileaflet aortic valve. No aortic valve stenosis or regurgitation. TRICUSPID VALVE Structurally normal tricuspid valve. There is mild tricuspid valve regurgitation. PULMONARY VALVE The pulmonary valve is not well visualized. VESSELS The inferior vena cava is normal in size. PERICARDIUM No pericardial effusion. Jhonny Rosado MD, FACC (Electronically Signed) Final Date:04 January 2018 14:06
[2018-01-04 15:41] LABS: HEMATOCRIT 27.3 % (35.0-46.0); MEAN CELL VOLUME 87.2 FL (80.0-100.0); MEAN CORPUSCULAR HEMOGLOBIN 28.6 PG (27.0-34.0); MEAN CORPUSCULAR HGB CONC 32.8 % (32.0-36.0); MEAN PLATELET VOLUME 7.8 FL (7.0-11.0); PLATELET COUNT 171 TH/MM3 (150-450); RED BLOOD COUNT 3.13 MIL/MM3 (4.00-5.30); RED CELL DISTRIBUTION WIDTH 16.6 % (11.6-17.2); WHITE BLOOD COUNT 23.9 TH/MM3 (4.0-11.0)
[2018-01-04 16:01] LABS: BICARBONATE 21.6 MEQ/L (21.0-32.0); CALCIUM 9.4 MG/DL (8.5-10.1); CREATININE 1.22 MG/DL (0.50-1.00)
[2018-01-04 16:09] LABS: TROPONIN I 13.4 NG/ML (0.02-0.05)
[2018-01-04] MEDS ORDERED: TERBUTALINE INJ 1 MG/ML AMP SQ PRN (20:00)
[2018-01-04] MEDS ORDERED: DOPamine 400 MG/250 ML PREMIX IV PRN (20:00)
[2018-01-04] MEDS: DOCUSATE SODIUM 50 MG/SENNA 8.6 MG TAB PO SCH (21:00)
[2018-01-04] MEDS: ATORVASTATIN 10 MG TAB PO SCH (21:04)
[2018-01-04] MEDS: SODIUM CHLOR 0.9% 1000 ML INJ 1,000 ML IV SCH (21:05)
[2018-01-05] VITALS (64 sets, daily range): BP systolic 68–174; BP diastolic 40–96; PULSE 70–103; RESP 12–54; TEMP 97–98.3; O2SAT 77–100
[2018-01-05] MEDS: CHLORHEXIDINE GLUCONATE 2 % 1 PACK (2 CLOTHS) TOP SCH (03:31)
[2018-01-05] MEDS: CHLORHEXIDINE GLUCONATE 2 % 1 PACK (2 CLOTHS)(taper/protocol) TOPICAL SCH (03:31)
[2018-01-05 05:32] LABS: AUTOMATED NEUTROPHIL # 19.6 TH/MM3 (1.8-7.7); BASOPHIL # 0.1 TH/MM3 (0-0.2); BASOPHIL % 0.4 % (0.0-2.0); EOSINOPHIL % 0.1 % (0.0-4.0); HEMATOCRIT 23.4 % (35.0-46.0); HEMOGLOBIN 7.7 GM/DL (11.6-15.3); LYMPH % 7.1 % (9.0-44.0); LYMPHOCYTE # 1.6 TH/MM3 (1.0-4.8); MEAN CORPUSCULAR HEMOGLOBIN 27.8 PG (27.0-34.0); MEAN CORPUSCULAR HGB CONC 33.1 % (32.0-36.0); MEAN PLATELET VOLUME 8.3 FL (7.0-11.0); MONO % 6.7 % (0.0-8.0); MONOCYTE # 1.5 TH/MM3 (0-0.9); NEUT % 85.7 % (16.0-70.0); PLATELET COUNT 173 TH/MM3 (150-450); RED BLOOD COUNT 2.78 MIL/MM3 (4.00-5.30); RED CELL DISTRIBUTION WIDTH 16.9 % (11.6-17.2); WHITE BLOOD COUNT 22.8 TH/MM3 (4.0-11.0)
[2018-01-05 06:06] LABS: ALBUMIN 2.2 GM/DL (3.4-5.0); ALKALINE PHOSPHATASE 53 U/L (45-117); ALT (GPT) 22 U/L (10-53); AST (GOT) 186 U/L (15-37); BICARBONATE 20.9 MEQ/L (21.0-32.0); BLOOD UREA NITROGEN 18 MG/DL (7-18); CHLORIDE 114 MEQ/L (98-107); CREATININE 1.53 MG/DL (0.50-1.00); GLOMERULAR FILTRATION RATE 33 ML/MIN (>89); GLUCOSE,RANDOM 158 MG/DL (74-106); SODIUM (NA) 144 MEQ/L (136-145); TOTAL BILIRUBIN ADULT 0.6 MG/DL (0.2-1.0); TOTAL PROTEIN 5.1 GM/DL (6.4-8.2)
[2018-01-05] MEDS: LEVOTHYROXINE SODIUM 75 MCG TAB PO SCH (06:16)
[2018-01-05] MEDS ORDERED: SODIUM CHLOR 0.9% 250 ML INJ 250 ML IV ONE (07:30)
--- NOTE | 2018-01-05 08:15 | PD.CARD.PN ---
Subjective Subjective Remarks denies chest pain,sob or palpitation. c/o L thigh discomfort at site of hematoma (Freda Moncada) Objective Medications Current Medications Medications (Trade) Dose Ordered Sig/Zahra Route Start Time Stop Time Status Last Admin (Ecotrin Ec) 81 mg DAILY PO 01/04/18 09:00 01/04/18 08:48 (Lipitor) 10 mg HS PO 01/04/18 21:00 01/04/18 21:04 (Synthroid) 75 mcg DAILY@0700 PO 01/04/18 07:00 01/05/18 06:16 (Percocet 5-325 Mg) 1 tab Q4H PRN PO 01/03/18 22:15 01/04/18 08:48 (NS Flush) 2 ml UNSCH PRN IV FLUSH 01/03/18 22:15 (NS Flush) 2 ml BID IV FLUSH 01/04/18 09:00 01/04/18 21:05 (Tylenol) 650 mg Q6H PRN PO 01/03/18 22:15 01/04/18 06:07 (Pepcid Inj) 20 mg Q12HR IV PUSH 01/04/18 09:00 01/04/18 21:04 (Zofran Inj) 4 mg Q6H PRN IV PUSH 01/03/18 22:15 (Restoril) 15 mg HS PRN PO 01/03/18 22:15 01/04/18 21:03 (Duoneb Neb) 1 ampule Q2HR NEB PRN INH 01/03/18 22:15 01/05/18 05:19 Miscellaneous Information 1 Q361D XX 01/03/18 22:15 01/03/18 22:15 (Chlorhexidine 2% Cloth) 3 pack Taper DAILY@04 TOP 01/04/18 04:00 12/31/18 03:59 01/05/18 03:31 (Chlorhexidine 2% Cloth) 3 pack UNSCH PRN TOP 01/03/18 22:15 (Kacy-Colace) 1 tab BID PO 01/04/18 09:00 (Milk Of Magnesia Liq) 30 ml Q12H PRN PO 01/03/18 22:15 (Senokot) 17.2 mg Q12H PRN PO 01/03/18 22:15 (Dulcolax Supp) 10 mg DAILY PRN RECTAL 01/03/18 22:15 (Lactulose Liq) 30 ml DAILY PRN PO 01/03/18 22:15 Miscellaneous Information Patient in critical care unit? Ass... Q361D .XX 01/03/18 22:30 01/03/18 23:49 (Chlorhexidine 2% Cloth) 3 pack DAILY@04 TOPICAL 01/04/18 04:00 01/08/18 04:01 (Chlorhexidine 2% Cloth) 3 pack UNSCH PRN TOPICAL 01/03/18 22:30 01/08/18 22:18 Potassium Chloride 100 ml @ 50 mls/hr Q2H PRN IV 01/03/18 22:45 Potassium Chloride 100 ml @ 50 mls/hr Q2H PRN IV 01/03/18 22:45 01/04/18 08:30 (K-Lyte Cl Eff) 50 meq UNSCH PRN PO 01/03/18 22:45 Potassium Chloride 100 ml @ 25 mls/hr UNSCH PRN IV 01/03/18 22:45 Potassium Chloride 100 ml @ 50 mls/hr Q2H PRN IV 01/03/18 22:45 Magnesium Sulfate 4 gm/Sodium Chloride 100 ml @ 50 mls/hr UNSCH PRN IV 01/03/18 22:45 (Mag-Ox) 800 mg UNSCH PRN PO 01/03/18 22:45 Magnesium Sulfate 2 gm/Sodium Chloride 100 ml @ 50 mls/hr UNSCH PRN IV 01/03/18 22:45 (K-Phos) 2,000 mg Q4H PRN PO 01/03/18 22:45 Sodium Phosphate 30 mmol/Sodium Chloride 250 ml @ 42 mls/hr UNSCH PRN IV 01/03/18 22:45 (K-Phos) 2,000 mg UNSCH PRN PO/TUBE 01/03/18 22:45 Potassium Phosphate 30 mmol/ Sodium Chloride 260 ml @ 42 mls/hr UNSCH PRN IV 01/03/18 22:45 Heparin Sodium/ Dextrose 250 ml @ 7.2 mls/hr TITRATE PRN IV 01/04/18 09:00 Dopamine HCl/ Dextrose 250 ml @ 6.728 mls/ hr TITRATE PRN IV 01/04/18 20:00 (Brethine Inj) 1 mg UNSCH PRN SQ 01/04/18 20:00 Sodium Chloride 1,000 ml @ 50 mls/hr Q20H IV 01/04/18 20:30 01/04/18 21:05 Sodium Chloride 250 ml @ 15 mls/hr ONCE ONCE IV 01/05/18 07:30 01/06/18 00:09 (Lasix Inj) 40 mg DAILY IV PUSH 01/05/18 09:00 Vital Signs / I&O Vital Signs Date Time Temp Pulse Resp B/P (MAP) Pulse Ox O2 Delivery O2 Flow Rate FiO2 01/05/18 06:01 86 32 133/61 (85) 100 01/05/18 06:00 85 01/05/18 05:24 100 Nasal Cannula 3.00 01/05/18 05:01 97 01/05/18 05:01 97 28 115/58 (77) 100 01/05/18 05:00 94 01/05/18 04:00 83 01/05/18 04:00 98.1 83 33 126/78 (94) 100 01/05/18 03:00 87 01/05/18 02:00 80 01/05/18 01:04 81 17 97/78 (84) 88 01/05/18 01:04 81 01/05/18 01:00 81 27 100 01/05/18 01:00 81 01/05/18 00:03 81 01/05/18 00:03 98.3 81 25 102/58 (73) 100 01/04/18 23:02 80 20 135/93 (107) 100 01/04/18 23:02 80 01/04/18 22:03 80 01/04/18 22:03 80 24 113/77 (89) 98 01/04/18 21:03 82 01/04/18 21:03 82 23 93/65 (74) 100 01/04/18 20:01 98.0 83 41 103/59 (74) 89 01/04/18 20:01 83 01/04/18 18:00 80 01/04/18 16:00 80 01/04/18 16:00 97.4 80 13 118/81 (93) 100 01/04/18 14:40 97.6 81 29 95/69 90 01/04/18 14:30 97.5 80 18 111/67 (82) 100 01/04/18 14:00 78 01/04/18 12:00 80 I/O 01/04/18 01/04/18 01/04/18 01/05/18 01/05/18 01/05/18 07:00 15:00 23:00 07:00 15:00 23:00 Intake Total 240 ml 759 ml 1340 ml 50 ml Output Total 340 ml 300 ml Balance 240 ml 759 ml 1000 ml -250 ml Intake Oral 240 ml 50 ml IV Total 344 ml 600 ml Packed Cells 400 ml 740 ml Blood Product IV Normal Saline Flush 15 ml Output Urine Total 340 ml 300 ml # Voids 1 # Bowel Movements 0 1 1 Physical Exam GENERAL: SKIN: Warm and dry. HEAD: Atraumatic. Normocephalic. EYES: Pupils equal and round. No scleral icterus ENT: No nasal bleeding or discharge. NECK: Trachea midline. No JVD. CARDIOVASCULAR: Regular rate and rhythm. no murmurs RESPIRATORY: No accessory muscle use. Clear to auscultation. Breath sounds equal bilaterally. GASTROINTESTINAL: Abdomen soft, non-tender, nondistended. Hepatic and splenic margins not palpable. MUSCULOSKELETAL: Extremities without clubbing, cyanosis, or edema. upper L thigh hematoma NEUROLOGICAL: Awake and alert. No obvious cranial nerve deficits. Normal speech. PSYCHIATRIC: Appropriate mood and affect; insight and judgment normal. Laboratory Laboratory Tests Test 01/04/18 10:03 01/04/18 11:00 01/04/18 12:50 01/04/18 14:35 Prothrombin Time 12.5 SEC Prothromb Time International Ratio 1.2 RATIO Activated Partial Thromboplast Time 21.1 SEC 67.8 SEC White Blood Count 24.8 TH/MM3 23.9 TH/MM3 Red Blood Count 2.27 MIL/MM3 3.13 MIL/MM3 Hemoglobin 6.4 GM/DL 9.0 GM/DL Hematocrit 20.1 % 27.3 % Mean Corpuscular Volume 88.4 FL 87.2 FL Mean Corpuscular Hemoglobin 28.1 PG 28.6 PG Mean Corpuscular Hemoglobin Concent 31.8 % 32.8 % Red Cell Distribution Width 17.2 % 16.6 % Platelet Count 197 TH/MM3 171 TH/MM3 Mean Platelet Volume 8.2 FL 7.8 FL Blood Urea Nitrogen 10 MG/DL 12 MG/DL Creatinine 0.83 MG/DL 1.22 MG/DL Random Glucose 194 MG/DL 204 MG/DL Total Protein 4.3 GM/DL Albumin 1.8 GM/DL Calcium Level 6.1 MG/DL 9.4 MG/DL Alkaline Phosphatase 51 U/L Aspartate Amino Transf (AST/SGOT) 54 U/L Alanine Aminotransferase (ALT/SGPT) 15 U/L Total Bilirubin 0.3 MG/DL Sodium Level 147 MEQ/L 143 MEQ/L Potassium Level 2.8 MEQ/L 4.1 MEQ/L Chloride Level 118 MEQ/L 111 MEQ/L Carbon Dioxide Level 16.6 MEQ/L 21.6 MEQ/L Anion Gap 12 MEQ/L 10 MEQ/L Estimat Glomerular Filtration Rate 66 ML/MIN 43 ML/MIN Protein Corrected Calcium 7.5 MG/DL Troponin I 13.40 NG/ML B-Type Natriuretic Peptide 272 PG/ML Test 01/04/18 21:40 01/05/18 00:15 01/05/18 04:45 Activated Partial Thromboplast Time 112.7 SEC 52.5 SEC White Blood Count 22.8 TH/MM3 Red Blood Count 2.78 MIL/MM3 Hemoglobin 7.7 GM/DL Hematocrit 23.4 % Mean Corpuscular Volume 84.0 FL Mean Corpuscular Hemoglobin 27.8 PG Mean Corpuscular Hemoglobin Concent 33.1 % Red Cell Distribution Width 16.9 % Platelet Count 173 TH/MM3 Mean Platelet Volume 8.3 FL Neutrophils (%) (Auto) 85.7 % Lymphocytes (%) (Auto) 7.1 % Monocytes (%) (Auto) 6.7 % Eosinophils (%) (Auto) 0.1 % Basophils (%) (Auto) 0.4 % Neutrophils # (Auto) 19.6 TH/MM3 Lymphocytes # (Auto) 1.6 TH/MM3 Monocytes # (Auto) 1.5 TH/MM3 Eosinophils # (Auto) 0.0 TH/MM3 Basophils # (Auto) 0.1 TH/MM3 CBC Comment DIFF FINAL Differential Comment Blood Urea Nitrogen 18 MG/DL Creatinine 1.53 MG/DL Random Glucose 158 MG/DL Total Protein 5.1 GM/DL Albumin 2.2 GM/DL Calcium Level 8.0 MG/DL Alkaline Phosphatase 53 U/L Aspartate Amino Transf (AST/SGOT) 186 U/L Alanine Aminotransferase (ALT/SGPT) 22 U/L Total Bilirubin 0.6 MG/DL Sodium Level 144 MEQ/L Potassium Level 4.6 MEQ/L Chloride Level 114 MEQ/L Carbon Dioxide Level 20.9 MEQ/L Anion Gap 9 MEQ/L Estimat Glomerular Filtration Rate 33 ML/MIN Imaging Last 48 hours Impressions Lower Extremity CT 01/04/18 0000 Signed Impressions: Service Date/Time: Thursday, January 04, 2018 05:18 - CONCLUSION: Large hematoma laterally of the left thigh as above. Intact femur. Kevin Shabazz MD Chest X-Ray 01/04/18 0000 Signed Impressions: Service Date/Time: Thursday, January 04, 2018 11:25 - CONCLUSION: 1. No placement of right internal jugular central venous line with tip projected over the heart. No thorax. 2. Right apical pleural-parenchymal change remains consistent with scarring. There are postoperative changes status post lobectomy. Joseph Juares MD Chest X-Ray 01/03/18 190 Signed Impressions: Service Date/Time: December 19:09 - CONCLUSION: Chronic change at the right upper chest. A new or acute abnormality is not seen. Kevin Blevins MD (Freda Moncada) Assessment and Plan Problem List: (1) ST elevation myocardial infarction (STEMI) of inferior wall ICD Codes: I21.19 - ST elevation (STEMI) myocardial infarction involving other coronary artery of inferior wall Status: Acute Assessment and Plan 77 yo WF with COPD, PVD, history of AAA repair and lung ca who presented after a fall at home and confusion. She had a syncopal event after micturation with STEMI alert upon presentation. STEMI- LHC cancelled yesterday due to change in mental status and concern for increased bleeding. ST segment elevation resolving completed infarct likely, troponins level decreasing. denies chest pain. echo EF 50-55%, mild-mod MR TV pacemaker placed cont asa/statin/bb/heparin consider LHC when stable L thigh hematoma- vascular following (Freda Moncada) Assessment and Plan pleasantly confused hemodynamically improved after blood/IVF Hb dropped to 6 Cr up to 1.5 medically manage inf MT cont heparin gtt reduced temp pacer to backup rate of 60 bpm (Jhonny Rosado MD) Freda Moncada Jan 05, 2018 08:15 Jhonny Rosado MD Jan 05, 2018 10:29
--- NOTE | 2018-01-05 08:45 | PD.VS.PN ---
Subjective Subjective/Hospital Course Pt with lateral thigh hematoma and acute WI, troponins decreasing endorses less thigh pain today foot ok is slightly confused this morning Rec'd 2U PRBC yesterday with appropriate Hct response Objective Vitals/I&O Date Time Temp Pulse Resp B/P (MAP) Pulse Ox O2 Delivery O2 Flow Rate FiO2 01/05/18 06:01 86 32 133/61 (85) 100 01/05/18 06:00 85 01/05/18 05:24 100 Nasal Cannula 3.00 01/05/18 05:01 97 01/05/18 05:01 97 28 115/58 (77) 100 01/05/18 05:00 94 01/05/18 04:00 83 01/05/18 04:00 98.1 83 33 126/78 (94) 100 01/05/18 03:00 87 01/05/18 02:00 80 01/05/18 01:04 81 17 97/78 (84) 88 01/05/18 01:04 81 01/05/18 01:00 81 27 100 01/05/18 01:00 81 01/05/18 00:03 81 01/05/18 00:03 98.3 81 25 102/58 (73) 100 01/04/18 23:02 80 20 135/93 (107) 100 01/04/18 23:02 80 01/04/18 22:03 80 01/04/18 22:03 80 24 113/77 (89) 98 01/04/18 21:03 82 01/04/18 21:03 82 23 93/65 (74) 100 01/04/18 20:01 98.0 83 41 103/59 (74) 89 01/04/18 20:01 83 01/04/18 18:00 80 01/04/18 16:00 80 01/04/18 16:00 97.4 80 13 118/81 (93) 100 01/04/18 14:40 97.6 81 29 95/69 90 01/04/18 14:30 97.5 80 18 111/67 (82) 100 01/04/18 14:00 78 01/04/18 12:00 80 01/05/18 01/05/18 01/05/18 07:00 15:00 23:00 Intake Total 50 ml Output Total 300 ml Balance -250 ml Physical Exam Lateral thigh tense but skin not threatened foot motor intact Laboratory Laboratory Tests Test 01/04/18 10:03 01/04/18 11:00 01/04/18 12:50 01/04/18 14:35 Prothrombin Time 12.5 Prothromb Time International Ratio 1.2 Activated Partial Thromboplast Time 21.1 67.8 White Blood Count 24.8 23.9 Red Blood Count 2.27 3.13 Hemoglobin 6.4 9.0 Hematocrit 20.1 27.3 Mean Corpuscular Volume 88.4 87.2 Mean Corpuscular Hemoglobin 28.1 28.6 Mean Corpuscular Hemoglobin Concent 31.8 32.8 Red Cell Distribution Width 17.2 16.6 Platelet Count 197 171 Mean Platelet Volume 8.2 7.8 Blood Urea Nitrogen 10 12 Creatinine 0.83 1.22 Random Glucose 194 204 Total Protein 4.3 Albumin 1.8 Calcium Level 6.1 9.4 Alkaline Phosphatase 51 Aspartate Amino Transf (AST/SGOT) 54 Alanine Aminotransferase (ALT/SGPT) 15 Total Bilirubin 0.3 Sodium Level 147 143 Potassium Level 2.8 4.1 Chloride Level 118 111 Carbon Dioxide Level 16.6 21.6 Anion Gap 12 10 Estimat Glomerular Filtration Rate 66 43 Protein Corrected Calcium 7.5 Troponin I 13.40 B-Type Natriuretic Peptide 272 Test 01/04/18 21:40 01/05/18 00:15 01/05/18 04:45 Activated Partial Thromboplast Time 112.7 52.5 White Blood Count 22.8 Red Blood Count 2.78 Hemoglobin 7.7 Hematocrit 23.4 Mean Corpuscular Volume 84.0 Mean Corpuscular Hemoglobin 27.8 Mean Corpuscular Hemoglobin Concent 33.1 Red Cell Distribution Width 16.9 Platelet Count 173 Mean Platelet Volume 8.3 Neutrophils (%) (Auto) 85.7 Lymphocytes (%) (Auto) 7.1 Monocytes (%) (Auto) 6.7 Eosinophils (%) (Auto) 0.1 Basophils (%) (Auto) 0.4 Neutrophils # (Auto) 19.6 Lymphocytes # (Auto) 1.6 Monocytes # (Auto) 1.5 Eosinophils # (Auto) 0.0 Basophils # (Auto) 0.1 CBC Comment DIFF FINAL Differential Comment Blood Urea Nitrogen 18 Creatinine 1.53 Random Glucose 158 Total Protein 5.1 Albumin 2.2 Calcium Level 8.0 Alkaline Phosphatase 53 Aspartate Amino Transf (AST/SGOT) 186 Alanine Aminotransferase (ALT/SGPT) 22 Total Bilirubin 0.6 Sodium Level 144 Potassium Level 4.6 Chloride Level 114 Carbon Dioxide Level 20.9 Anion Gap 9 Estimat Glomerular Filtration Rate 33 Imaging Last 48 hours Impressions Lower Extremity CT 01/04/18 0000 Signed Impressions: Service Date/Time: Thursday, January 04, 2018 05:18 - CONCLUSION: Large hematoma laterally of the left thigh as above. Intact femur. Kevin Shabazz MD Chest X-Ray 01/04/18 0000 Signed Impressions: Service Date/Time: Thursday, January 04, 2018 11:25 - CONCLUSION: 1. No placement of right internal jugular central venous line with tip projected over the heart. No thorax. 2. Right apical pleural-parenchymal change remains consistent with scarring. There are postoperative changes status post lobectomy. Joseph Juares MD Chest X-Ray 01/03/18 190 Signed Impressions: Service Date/Time: December 19:09 - CONCLUSION: Chronic change at the right upper chest. A new or acute abnormality is not seen. Kevin Blevins MD Assessment and Plan Plan Thigh hematoma after fall and STEMI 1. no emergent indication for thigh hematoma evacuation. At present, anesthetic risk of surgery in setting of AMI outweigh benefit. Likely to need drainage at some point 2. Compression toes to groin 3. Hct checks 4. Neurovascular checks Will follow closely. Raphael Pittman MD FACS [employer] computing consultant [facility] - [facility] V[facility] Surgery at [facility] [address] [phone] Raphael Pittman MD Jan 05, 2018 08:45
[2018-01-05] MEDS: FAMOTIDINE 20 MG/2 ML VIAL IV PUSH SCH (08:50)
[2018-01-05] MEDS: DOCUSATE SODIUM 50 MG/SENNA 8.6 MG TAB PO SCH ×2 (08:50→21:00)
[2018-01-05] MEDS: ASPIRIN EC 81 MG TABEC PO SCH (08:51)
[2018-01-05] MEDS: SODIUM CHLORIDE 0.9% FLUSH 10 ML FLUSH IV FLUSH SCH ×2 (08:52→21:00)
[2018-01-05] MEDS: FUROSEMIDE 40 MG/4 ML VIAL IV PUSH SCH (08:52)
[2018-01-05 12:54] LABS: HEMATOCRIT 25.7 % (35.0-46.0); HEMOGLOBIN 8.7 GM/DL (11.6-15.3)
[2018-01-05] MEDS: SODIUM CHLOR 0.9% 1000 ML INJ 1,000 ML IV SCH (13:07)
--- NOTE | 2018-01-05 14:05 | HHI.CCPN ---
Subjective Remarks/Hospital Course 01/03: 77-year-old woman, presents after collapse. Reportedly was on her way to the restroom when she did not quite make it in class. Family heard her fall. Denied LOC. Patient denies any head injury but has a small abrasion to her forehead. When paramedics arrived she stood up and lost consciousness again. She has been hypertensive and bradycardic with them. They noted inferior ST elevations with a typical changes in the STEMI alert was called. She has recent medical history of a AAA repair in October by Dr. Pittman. Patient is unable to provide any additional history. 01/04: Patient was taken to [facility] however cardiac catheterization was not done as patient had altered mental status in view of concerns by cardiology and then admitted to ICU. Patient was put on anticoagulation with heparin. Overnight she developed a left thigh hematoma which is noted on CT done this morning around 5:30 AM. Stopped heparin drip and consulted vascular surgery Dr. Pittman and also informed Dr. Rosado from cardiology. Patient is resting in bed complaining of pain over the left thigh hematoma site. She is otherwise awake and alert on nasal cannula maintaining her blood pressure and appears pale. Type and crossmatch was ordered with 1 unit PRBCs to be transfused stat. 01/05: Transfused 2 units PRBCs yesterday. Transvenous pacer remains in place. Patient is awake and alert this morning appears pale. Hemoglobin dropped on a.m. labs hence 1 unit PRBCs ordered. Being followed by cardiology for STEMI. On heparin drip. Left thigh hematoma with some blistering over some areas. Vascular surgery following. Objective Vital Signs Date Time Temp Pulse Resp B/P (MAP) Pulse Ox O2 Delivery O2 Flow Rate FiO2 01/05/18 13:30 78 21 128/74 (92) 97 01/05/18 12:00 97.7 01/05/18 09:16 Nasal Cannula 2.00 01/03/18 19:00 100 Intake and Output 01/05/18 01/05/18 01/06/18 08:00 16:00 00:00 Intake Total 50 ml 455 ml Output Total 300 ml Balance -250 ml 455 ml Result Diagram: 01/05/18 1100 01/05/18 0445 Imaging Last 24 hours Impressions Chest X-Ray 01/03/18 3922 Signed Impressions: Service Date/Time: December 19:09 - CONCLUSION: Chronic change at the right upper chest. A new or acute abnormality is not seen. Kevin Blevins MD Head CT 01/03/18 0000 Signed Impressions: Service Date/Time: December 20:11 - CONCLUSION: 1. No acute intracranial abnormality seen. 2. Atrophy. 3. Left maxillary and sphenoid sinus disease. Kevin Blevins MD Objective Remarks GENERAL: Well-nourished, well-developed patient. SKIN: Warm and dry. HEAD: Normocephalic. EYES: No scleral icterus. No injection or drainage. Pallor present NECK: Supple, trachea midline. No JVD or lymphadenopathy. CARDIOVASCULAR: Regular rate and rhythm without murmurs, gallops, or rubs. RESPIRATORY: Breath sounds equal bilaterally. No accessory muscle use. No wheezing or crackles GASTROINTESTINAL: Abdomen soft, non-tender, nondistended. MUSCULOSKELETAL: Large hematoma over left lateral thigh with significant tenderness. 2 blisters on skin over hematoma Site marked to watch for expansion. Extremities otherwise well perfused distally and warm bilaterally. NEURO EXAM: Awake alert, oriented 2, moving all 4 extremities, grossly nonfocal. A/P Assessment and Plan ST elevation OR CAD -Cardiac catheterization to be decided by Dr. Rosado. Discussed with vascular surgery Dr. Pittman who is okay with proceeding with anything cardiac intervention as needed including cardiac catheterization. He is okay with resuming anticoagulation with heparin as well as needed. - May require evacuation of left thigh hematoma subsequently per Dr. Pittman. - Remains on heparin drip. Cardiac catheterization deferred per Dr. Rosado. Intermittently paced. Pacer rate dropped to 60/m. Cardiology to decide further management including cardiac catheterization and need for permanent pacemaker. -Continue aspirin and atorvastatin Left thigh hematoma Recent AAA repair in October 2017 - Being followed by vascular surgery Dr. Pittman. - Follow serial H&H, transfuse to keep hemoglobin closer to 9 g percent. Received 2 units PRBCs on 01/04 and 1 unit PRBCs on 01/05 COPD - Bronchodilators as needed. Supplemental O2. Hypothyroidism -Levothyroxine Dyslipidemia -Atorvastatin DVT GI prophylaxis -Jacky's and SCDs -On anticoagulation with heparin -Pepcid -Zofran when necessary - Advance PO diet as tolerated. CODE STATUS DNR at this time per families wishes. Solitario Her MD Jan 05, 2018 14:05
--- NOTE | 2018-01-05 14:07 | EKG ---
Date Performed: 01/04/2018 Time Performed: 09:52:12 PTAGE: 77 years EKG: CONSIDER ACUTE ST ELEVATION CA Marked sinus bradycardia. Inferior ST elevation, CON PRICING DIRECTOR ACUTE INFARCT Anteroseptal ST depression is probably reciprocal to inferior infarct First degre e AV block Abnormal ECG Compared to PREVIOUS TRACING , ST segment elevation is now present in the inferior leads, consistent with acute inferior infarction and first degree AV block is new. PREVIOUS TRACIN01/04/2018 05.09 DOCTOR: Elder Garcia Interpretating Date/Time 01/05/2018 14:05:26
--- NOTE | 2018-01-05 14:07 | EKG ---
Date Performed: 01/04/2018 Time Performed: 13:34:35 PTAGE: 77 years EKG: SINUS TACHYCARDIA WITH FIRST DEGREE AV BLOCK LEFT VENTRICULAR HYPERTROPHY AND ST-T CHANGE M ARKED ST ELEVATION, CONSIDER INFERIOR INJURY ACUTE [place] Compared to PREVIOUS TRACING , the rate is faster. PREVIOUS TRACIN01/04/2018 09.52 DOCTOR: Elder Garcia Interpretating Date/Time 01/05/2018 14:06:04
[2018-01-05] MEDS: DEXT 5%-NACL 0.45% 1000 ML INJ 1,000 ML IV SCH (15:22)
[2018-01-05] MEDS: ACETAMINOPHEN 325 MG TAB PO PRN (16:00)
[2018-01-05 17:39] LABS: AUTOMATED NEUTROPHIL # 21.7 TH/MM3 (1.8-7.7); BASOPHIL % 0.1 % (0.0-2.0); EOSINOPHIL % 0.1 % (0.0-4.0); HEMATOCRIT 23.1 % (35.0-46.0); HEMOGLOBIN 7.8 GM/DL (11.6-15.3); LYMPH % 8.1 % (9.0-44.0); LYMPHOCYTE # 2.1 TH/MM3 (1.0-4.8); MEAN CELL VOLUME 84.5 FL (80.0-100.0); MEAN CORPUSCULAR HEMOGLOBIN 28.6 PG (27.0-34.0); MEAN CORPUSCULAR HGB CONC 33.8 % (32.0-36.0); MEAN PLATELET VOLUME 8.1 FL (7.0-11.0); MONO % 9.3 % (0.0-8.0); MONOCYTE # 2.5 TH/MM3 (0-0.9); NEUT % 82.4 % (16.0-70.0); PLATELET COUNT 141 TH/MM3 (150-450); RED BLOOD COUNT 2.73 MIL/MM3 (4.00-5.30); WHITE BLOOD COUNT 26.4 TH/MM3 (4.0-11.0)
[2018-01-05] MEDS: FAMOTIDINE 20 MG TAB PO SCH (21:00)
[2018-01-05] MEDS: ATORVASTATIN 10 MG TAB PO SCH (21:00)
[2018-01-06] VITALS (50 sets, daily range): BP systolic 128–188; BP diastolic 58–89; PULSE 66–80; RESP 2–24; TEMP 97.6–98.7; O2SAT 91–100
--- NOTE | 2018-01-06 03:34 | RADRPT ---
EXAM DATE/TIME: 01/06/2018 03:01 [facility] COMPARISON: CHEST SINGLE AP, January 04, 2018, 11:25. INDICATIONS : Shortness of breath, possible pulmonary disease. MEDICAL HISTORY : Hypercholesterolemia. Hypertension Emphysema. COPD Right lung ca SURGICAL HISTORY : Tonsillectomy. Right lobectomy ENCOUNTER: Subsequent ACUITY: 3 days PAIN SCORE: Non-responsive. LOCATION: Bilateral chest FINDINGS: A single view of the chest demonstrates right IJ line in right atrium. Partial resection right lung w ith apical pleural thickening. No new infiltrate or effusion. CONCLUSION: 1. No acute infiltrate. Postop changes on the right. Jose Lake MD on January 06, 2018 at 3:30 Board Certified Radiologist. This report was verified electronically.
[2018-01-06] MEDS: CHLORHEXIDINE GLUCONATE 2 % 1 PACK (2 CLOTHS)(taper/protocol) TOPICAL SCH (04:00)
[2018-01-06] MEDS: CHLORHEXIDINE GLUCONATE 2 % 1 PACK (2 CLOTHS) TOP SCH (04:00)
[2018-01-06] MEDS: LEVOTHYROXINE SODIUM 75 MCG TAB PO SCH (06:34)
[2018-01-06 06:40] LABS: BASOPHIL # 0.1 TH/MM3 (0-0.2); BASOPHIL % 0.4 % (0.0-2.0); EOSINOPHIL # 0.1 TH/MM3 (0-0.4); EOSINOPHIL % 0.4 % (0.0-4.0); LYMPH % 6.9 % (9.0-44.0); LYMPHOCYTE # 1.4 TH/MM3 (1.0-4.8); MEAN CELL VOLUME 84.7 FL (80.0-100.0); MEAN CORPUSCULAR HEMOGLOBIN 28.8 PG (27.0-34.0); MEAN PLATELET VOLUME 8.2 FL (7.0-11.0); MONO % 10.4 % (0.0-8.0); MONOCYTE # 2.2 TH/MM3 (0-0.9); NEUT % 81.9 % (16.0-70.0); PLATELET COUNT 110 TH/MM3 (150-450); RED BLOOD COUNT 2.11 MIL/MM3 (4.00-5.30); RED CELL DISTRIBUTION WIDTH 16.5 % (11.6-17.2); WHITE BLOOD COUNT 20.8 TH/MM3 (4.0-11.0)
[2018-01-06 06:56] LABS: HEMATOCRIT 17.8 % (35.0-46.0); HEMOGLOBIN 6.1 GM/DL (11.6-15.3)
[2018-01-06] MEDS ORDERED: SODIUM CHLOR 0.9% 250 ML INJ 250 ML IV ONE ×2 (07:00→19:00)
[2018-01-06 07:04] LABS: ALBUMIN 2.1 GM/DL (3.4-5.0); AST (GOT) 60 U/L (15-37); BICARBONATE 22.3 MEQ/L (21.0-32.0); BLOOD UREA NITROGEN 26 MG/DL (7-18); CALCIUM 7.8 MG/DL (8.5-10.1); CHLORIDE 111 MEQ/L (98-107); CREATININE 1.64 MG/DL (0.50-1.00); GLOMERULAR FILTRATION RATE 30 ML/MIN (>89); GLUCOSE,RANDOM 122 MG/DL (74-106); SODIUM (NA) 141 MEQ/L (136-145)
[2018-01-06 07:05] LABS: ALT (GPT) 17 U/L (10-53)
[2018-01-06 07:09] LABS: ALKALINE PHOSPHATASE 55 U/L (45-117); TOTAL BILIRUBIN ADULT 0.5 MG/DL (0.2-1.0); TOTAL PROTEIN 4.8 GM/DL (6.4-8.2)
[2018-01-06 07:40] LABS: BANDS 1 % (0-6); LYMPHOCYTES 1 % (9-44); MONOCYTES 8 % (0-8); NEUTROPHIL # MANUAL DIFF 18.7 TH/MM3 (1.8-7.7); POLYS (SEG NEUTROPHILS) 89 % (16-70)
[2018-01-06] MEDS: FUROSEMIDE 40 MG/4 ML VIAL IV PUSH SCH (08:31)
[2018-01-06] MEDS: FAMOTIDINE 20 MG TAB PO SCH ×2 (08:32→21:00)
[2018-01-06] MEDS: ASPIRIN EC 81 MG TABEC PO SCH (08:32)
[2018-01-06] MEDS: DOCUSATE SODIUM 50 MG/SENNA 8.6 MG TAB PO SCH ×2 (08:32→21:00)
[2018-01-06] MEDS: SODIUM CHLORIDE 0.9% FLUSH 10 ML FLUSH IV FLUSH SCH ×2 (08:33→21:00)
--- NOTE | 2018-01-06 08:35 | PD.VS.PN ---
Subjective Subjective/Hospital Course Pt with lateral thigh hematoma and acute NE, Hct dropped 23 to 17 but neurovascular exam stable most concerning, the patient's troponin increased again (13 to 27) is slightly confused this morning total 3U PRBC over 2 days and getting 2U this morning Objective Vitals/I&O Date Time Temp Pulse Resp B/P (MAP) Pulse Ox O2 Delivery O2 Flow Rate FiO2 01/06/18 06:00 77 01/06/18 04:00 69 01/06/18 04:00 98.7 69 15 161/67 (98) 100 01/06/18 02:00 73 01/06/18 00:00 98.3 76 23 142/67 (92) 100 01/06/18 00:00 76 01/05/18 22:00 85 01/05/18 20:00 98.2 85 21 144/90 (108) 100 01/05/18 20:00 85 01/05/18 18:30 145/68 (93) 01/05/18 18:24 84 23 140/65 (90) 100 01/05/18 18:00 85 01/05/18 18:00 85 24 145/70 (95) 100 01/05/18 17:45 81 24 143/78 (99) 99 01/05/18 17:31 87 24 140/67 (91) 100 01/05/18 17:15 79 25 174/72 (106) 98 01/05/18 17:01 78 12 166/72 (103) 100 01/05/18 17:00 79 17 99 01/05/18 16:31 86 18 162/77 (105) 100 01/05/18 16:15 78 16 147/67 (93) 98 01/05/18 16:00 97.7 75 26 139/65 (89) 100 01/05/18 16:00 75 01/05/18 15:46 78 24 132/74 (93) 97 01/05/18 15:30 77 24 121/58 (79) 100 01/05/18 15:16 85 37 138/67 (90) 84 01/05/18 15:00 84 25 141/63 (89) 95 01/05/18 14:51 103 54 129/96 (107) 94 01/05/18 14:31 85 27 128/64 (85) 100 01/05/18 14:15 92 26 138/74 (95) 100 01/05/18 14:01 91 16 136/66 (89) 99 01/05/18 14:00 92 01/05/18 14:00 92 21 89 01/05/18 13:30 78 21 128/74 (92) 97 01/05/18 13:16 86 23 135/71 (92) 83 01/05/18 13:15 80 29 85 01/05/18 13:00 79 28 131/61 (84) 98 01/05/18 12:45 88 27 126/65 (85) 93 01/05/18 12:30 86 16 130/71 (90) 95 01/05/18 12:16 75 26 95/64 (74) 100 01/05/18 12:15 78 29 89 01/05/18 12:00 72 01/05/18 12:00 97.7 72 30 123/66 (85) 98 01/05/18 11:00 72 18 100 01/05/18 10:46 93 34 101/69 (80) 01/05/18 10:30 70 15 134/65 (88) 77 01/05/18 10:00 85 34 85 01/05/18 10:00 85 01/05/18 09:45 80 24 134/64 (87) 01/05/18 09:31 82 27 142/67 (92) 01/05/18 09:20 85 31 156/96 (116) 99 01/05/18 09:16 99 Nasal Cannula 2.00 01/05/18 09:11 97.0 80 23 101/40 97 01/05/18 09:11 80 45 101/49 (66) 97 01/05/18 09:08 80 40 68/47 (54) 94 01/05/18 09:05 80 37 70/45 (53) 01/05/18 09:03 80 35 75/43 (54) 01/05/18 09:00 80 46 77 01/05/18 08:57 97.0 89 23 104/59 100 01/05/18 08:40 89 33 104/59 (74) 01/06/18 01/06/18 01/06/18 07:00 15:00 23:00 Output Total 250 ml Balance -250 ml Physical Exam Lateral thigh full c/w hematoma superficial serous blisters Laboratory Laboratory Tests Test 01/05/18 11:00 01/05/18 17:15 01/06/18 05:40 Hemoglobin 8.7 7.8 6.1 Hematocrit 25.7 23.1 17.8 Activated Partial Thromboplast Time 47.7 43.6 White Blood Count 26.4 20.8 Red Blood Count 2.73 2.11 Mean Corpuscular Volume 84.5 84.7 Mean Corpuscular Hemoglobin 28.6 28.8 Mean Corpuscular Hemoglobin Concent 33.8 34.0 Red Cell Distribution Width 16.0 16.5 Platelet Count 141 110 Mean Platelet Volume 8.1 8.2 Neutrophils (%) (Auto) 82.4 81.9 Lymphocytes (%) (Auto) 8.1 6.9 Monocytes (%) (Auto) 9.3 10.4 Eosinophils (%) (Auto) 0.1 0.4 Basophils (%) (Auto) 0.1 0.4 Neutrophils # (Auto) 21.7 17.0 Lymphocytes # (Auto) 2.1 1.4 Monocytes # (Auto) 2.5 2.2 Eosinophils # (Auto) 0.0 0.1 Basophils # (Auto) 0.0 0.1 CBC Comment AUTO DIFF AUTO DIFF Differential Comment AUTO DIFF CONFIRMED FINAL DIFF MANUAL Platelet Estimate NORMAL LOW Platelet Morphology Comment NORMAL NORMAL Red Cell Morphology Comment NORMAL Differential Total Cells Counted 100 Neutrophils % (Manual) 89 Band Neutrophils % 1 Lymphocytes % 1 Monocytes % 8 Eosinophils % 1 Neutrophils # (Manual) 18.7 Blood Urea Nitrogen 26 Creatinine 1.64 Random Glucose 122 Total Protein 4.8 Albumin 2.1 Calcium Level 7.8 Alkaline Phosphatase 55 Aspartate Amino Transf (AST/SGOT) 60 Alanine Aminotransferase (ALT/SGPT) 17 Total Bilirubin 0.5 Sodium Level 141 Potassium Level 4.0 Chloride Level 111 Carbon Dioxide Level 22.3 Anion Gap 8 Estimat Glomerular Filtration Rate 30 Troponin I 27.90 B-Type Natriuretic Peptide 318 Imaging Last 48 hours Impressions Chest X-Ray 01/06/18 0600 Signed Impressions: Service Date/Time: Saturday, January 06, 2018 03:01 - CONCLUSION: 1. No acute infiltrate. Postop changes on the right. Jose Lake MD Assessment and Plan Plan Thigh hematoma after fall and STEMI 1. no emergent indication for thigh hematoma evacuation. I re-wrapped her leg and ideally would drain hematoma. However, the re-escalation in troponins is concerning. Needs cardiology eval possible LHC. 2. Transfuse and continue compression, neurovascular checks 3. Will no doubt need thigh I&D in OR at some point but need to wait until cardiac issues settle first Will follow closely. Raphael Pittman MD FACS [facility] housing liaison [facility] - Heart and Vascular Surgery at [facility] [phone] Raphael Pittman MD Jan 06, 2018 08:35
--- NOTE | 2018-01-06 09:01 | PD.CARD.PN ---
Subjective Subjective Remarks mentation slightly improved. denies chest pain or sob. troponin elevation overnight to 27. (Freda Moncada) Objective Medications Current Medications Medications (Trade) Dose Ordered Sig/Zahra Route Start Time Stop Time Status Last Admin (Ecotrin Ec) 81 mg DAILY PO 01/04/18 09:00 01/06/18 08:32 (Lipitor) 10 mg HS PO 01/04/18 21:00 01/04/18 21:04 (Synthroid) 75 mcg DAILY@0700 PO 01/04/18 07:00 01/06/18 06:34 (Percocet 5-325 Mg) 1 tab Q4H PRN PO 01/03/18 22:15 01/04/18 08:48 (NS Flush) 2 ml UNSCH PRN IV FLUSH 01/03/18 22:15 (NS Flush) 2 ml BID IV FLUSH 01/04/18 09:00 01/06/18 08:33 (Tylenol) 650 mg Q6H PRN PO 01/03/18 22:15 01/05/18 16:00 (Zofran Inj) 4 mg Q6H PRN IV PUSH 01/03/18 22:15 (Restoril) 15 mg HS PRN PO 01/03/18 22:15 01/04/18 21:03 (Duoneb Neb) 1 ampule Q2HR NEB PRN INH 01/03/18 22:15 01/05/18 05:19 Miscellaneous Information 1 Q361D XX 01/03/18 22:15 01/03/18 22:15 (Chlorhexidine 2% Cloth) 3 pack Taper DAILY@04 TOP 01/04/18 04:00 12/31/18 03:59 01/06/18 04:00 (Chlorhexidine 2% Cloth) 3 pack UNSCH PRN TOP 01/03/18 22:15 (Kacy-Colace) 1 tab BID PO 01/04/18 09:00 01/06/18 08:32 (Milk Of Magnesia Liq) 30 ml Q12H PRN PO 01/03/18 22:15 (Senokot) 17.2 mg Q12H PRN PO 01/03/18 22:15 (Dulcolax Supp) 10 mg DAILY PRN RECTAL 01/03/18 22:15 (Lactulose Liq) 30 ml DAILY PRN PO 01/03/18 22:15 Miscellaneous Information Patient in critical care unit? Ass... Q361D .XX 01/03/18 22:30 01/03/18 23:49 (Chlorhexidine 2% Cloth) 3 pack DAILY@04 TOPICAL 01/04/18 04:00 01/08/18 04:01 (Chlorhexidine 2% Cloth) 3 pack UNSCH PRN TOPICAL 01/03/18 22:30 01/08/18 22:18 Potassium Chloride 100 ml @ 50 mls/hr Q2H PRN IV 01/03/18 22:45 Potassium Chloride 100 ml @ 50 mls/hr Q2H PRN IV 01/03/18 22:45 01/04/18 08:30 (K-Lyte Cl Eff) 50 meq UNSCH PRN PO 01/03/18 22:45 Potassium Chloride 100 ml @ 25 mls/hr UNSCH PRN IV 01/03/18 22:45 Potassium Chloride 100 ml @ 50 mls/hr Q2H PRN IV 01/03/18 22:45 Magnesium Sulfate 4 gm/Sodium Chloride 100 ml @ 50 mls/hr UNSCH PRN IV 01/03/18 22:45 (Mag-Ox) 800 mg UNSCH PRN PO 01/03/18 22:45 Magnesium Sulfate 2 gm/Sodium Chloride 100 ml @ 50 mls/hr UNSCH PRN IV 01/03/18 22:45 (K-Phos) 2,000 mg Q4H PRN PO 01/03/18 22:45 Sodium Phosphate 30 mmol/Sodium Chloride 250 ml @ 42 mls/hr UNSCH PRN IV 01/03/18 22:45 (K-Phos) 2,000 mg UNSCH PRN PO/TUBE 01/03/18 22:45 Potassium Phosphate 30 mmol/ Sodium Chloride 260 ml @ 42 mls/hr UNSCH PRN IV 01/03/18 22:45 Heparin Sodium/ Dextrose 250 ml @ 7.2 mls/hr TITRATE PRN IV 01/04/18 09:00 Dopamine HCl/ Dextrose 250 ml @ 6.728 mls/ hr TITRATE PRN IV 01/04/18 20:00 (Brethine Inj) 1 mg UNSCH PRN SQ 01/04/18 20:00 (Lasix Inj) 40 mg DAILY IV PUSH 01/05/18 09:00 01/06/18 08:31 Dextrose/Sodium Chloride 1,000 ml @ 42 mls/hr [id number] IV 01/05/18 14:30 01/05/18 15:22 (Pepcid) 10 mg BID PO 01/05/18 21:00 01/06/18 08:32 Sodium Chloride 250 ml @ 15 mls/hr ONCE ONCE IV 01/06/18 07:00 01/06/18 23:39 01/06/18 08:34 Vital Signs / I&O Vital Signs Date Time Temp Pulse Resp B/P (MAP) Pulse Ox O2 Delivery O2 Flow Rate FiO2 01/06/18 08:35 97.7 71 24 133/63 100 01/06/18 06:00 77 01/06/18 04:00 69 01/06/18 04:00 98.7 69 15 161/67 (98) 100 01/06/18 02:00 73 01/06/18 00:00 98.3 76 23 142/67 (92) 100 01/06/18 00:00 76 01/05/18 22:00 85 01/05/18 20:00 98.2 85 21 144/90 (108) 100 01/05/18 20:00 85 01/05/18 18:30 145/68 (93) 01/05/18 18:24 84 23 140/65 (90) 100 01/05/18 18:00 85 01/05/18 18:00 85 24 145/70 (95) 100 01/05/18 17:45 81 24 143/78 (99) 99 01/05/18 17:31 87 24 140/67 (91) 100 01/05/18 17:15 79 25 174/72 (106) 98 01/05/18 17:01 78 12 166/72 (103) 100 01/05/18 17:00 79 17 99 01/05/18 16:31 86 18 162/77 (105) 100 01/05/18 16:15 78 16 147/67 (93) 98 01/05/18 16:00 97.7 75 26 139/65 (89) 100 01/05/18 16:00 75 01/05/18 15:46 78 24 132/74 (93) 97 01/05/18 15:30 77 24 121/58 (79) 100 01/05/18 15:16 85 37 138/67 (90) 84 01/05/18 15:00 84 25 141/63 (89) 95 01/05/18 14:51 103 54 129/96 (107) 94 01/05/18 14:31 85 27 128/64 (85) 100 01/05/18 14:15 92 26 138/74 (95) 100 01/05/18 14:01 91 16 136/66 (89) 99 01/05/18 14:00 92 01/05/18 14:00 92 21 89 01/05/18 13:30 78 21 128/74 (92) 97 01/05/18 13:16 86 23 135/71 (92) 83 01/05/18 13:15 80 29 85 01/05/18 13:00 79 28 131/61 (84) 98 01/05/18 12:45 88 27 126/65 (85) 93 01/05/18 12:30 86 16 130/71 (90) 95 01/05/18 12:16 75 26 95/64 (74) 100 01/05/18 12:15 78 29 89 01/05/18 12:00 72 01/05/18 12:00 97.7 72 30 123/66 (85) 98 01/05/18 11:00 72 18 100 01/05/18 10:46 93 34 101/69 (80) 01/05/18 10:30 70 15 134/65 (88) 77 01/05/18 10:00 85 34 85 01/05/18 10:00 85 01/05/18 09:45 80 24 134/64 (87) 01/05/18 09:31 82 27 142/67 (92) 01/05/18 09:20 85 31 156/96 (116) 99 01/05/18 09:16 99 Nasal Cannula 2.00 01/05/18 09:11 97.0 80 23 101/40 97 01/05/18 09:11 80 45 101/49 (66) 97 01/05/18 09:08 80 40 68/47 (54) 94 01/05/18 09:05 80 37 70/45 (53) 01/05/18 09:03 80 35 75/43 (54) 3/31/18 09:00 80 46 77 01/05/18 08:57 97.0 89 23 104/59 100 I/O 01/05/18 01/05/18 01/05/18 01/06/18 01/06/18 01/06/18 07:00 15:00 23:00 07:00 15:00 23:00 Intake Total 50 ml 455 ml 360 ml 10 ml Output Total 300 ml 500 ml 250 ml Balance -250 ml 455 ml -140 ml -250 ml 10 ml Intake Oral 50 ml 240 ml IV Total 30 ml 120 ml Packed Cells 400 ml Blood Product IV Normal Saline Flush 25 ml 10 ml Output Urine Total 300 ml 500 ml 250 ml # Bowel Movements 1 0 0 Physical Exam GENERAL: SKIN: Warm and dry. HEAD: Atraumatic. Normocephalic. EYES: Pupils equal and round. No scleral icterus ENT: No nasal bleeding or discharge. NECK: Trachea midline. No JVD. CARDIOVASCULAR: Regular rate and rhythm. no murmurs RESPIRATORY: No accessory muscle use. Clear to auscultation. Breath sounds equal bilaterally. GASTROINTESTINAL: Abdomen soft, non-tender, nondistended. Hepatic and splenic margins not palpable. MUSCULOSKELETAL: Extremities without clubbing, cyanosis, or edema. upper L thigh hematoma NEUROLOGICAL: Awake and alert. No obvious cranial nerve deficits. Normal speech. PSYCHIATRIC: pleasantly confused. oriented to date only. Laboratory Laboratory Tests Test 01/05/18 11:00 01/05/18 17:15 01/06/18 05:40 Hemoglobin 8.7 GM/DL 7.8 GM/DL 6.1 GM/DL Hematocrit 25.7 % 23.1 % 17.8 % Activated Partial Thromboplast Time 47.7 SEC 43.6 SEC White Blood Count 26.4 TH/MM3 20.8 TH/MM3 Red Blood Count 2.73 MIL/MM3 2.11 MIL/MM3 Mean Corpuscular Volume 84.5 FL 84.7 FL Mean Corpuscular Hemoglobin 28.6 PG 28.8 PG Mean Corpuscular Hemoglobin Concent 33.8 % 34.0 % Red Cell Distribution Width 16.0 % 16.5 % Platelet Count 141 TH/MM3 110 TH/MM3 Mean Platelet Volume 8.1 FL 8.2 FL Neutrophils (%) (Auto) 82.4 % 81.9 % Lymphocytes (%) (Auto) 8.1 % 6.9 % Monocytes (%) (Auto) 9.3 % 10.4 % Eosinophils (%) (Auto) 0.1 % 0.4 % Basophils (%) (Auto) 0.1 % 0.4 % Neutrophils # (Auto) 21.7 TH/MM3 17.0 TH/MM3 Lymphocytes # (Auto) 2.1 TH/MM3 1.4 TH/MM3 Monocytes # (Auto) 2.5 TH/MM3 2.2 TH/MM3 Eosinophils # (Auto) 0.0 TH/MM3 0.1 TH/MM3 Basophils # (Auto) 0.0 TH/MM3 0.1 TH/MM3 CBC Comment AUTO DIFF AUTO DIFF Differential Comment AUTO DIFF CONFIRMED FINAL DIFF MANUAL Platelet Estimate NORMAL LOW Platelet Morphology Comment NORMAL NORMAL Red Cell Morphology Comment NORMAL Differential Total Cells Counted 100 Neutrophils % (Manual) 89 % Band Neutrophils % 1 % Lymphocytes % 1 % Monocytes % 8 % Eosinophils % 1 % Neutrophils # (Manual) 18.7 TH/MM3 Blood Urea Nitrogen 26 MG/DL Creatinine 1.64 MG/DL Random Glucose 122 MG/DL Total Protein 4.8 GM/DL Albumin 2.1 GM/DL Calcium Level 7.8 MG/DL Alkaline Phosphatase 55 U/L Aspartate Amino Transf (AST/SGOT) 60 U/L Alanine Aminotransferase (ALT/SGPT) 17 U/L Total Bilirubin 0.5 MG/DL Sodium Level 141 MEQ/L Potassium Level 4.0 MEQ/L Chloride Level 111 MEQ/L Carbon Dioxide Level 22.3 MEQ/L Anion Gap 8 MEQ/L Estimat Glomerular Filtration Rate 30 ML/MIN Troponin I 27.90 NG/ML B-Type Natriuretic Peptide 318 PG/ML Imaging Last 24 hours Impressions Chest X-Ray 01/06/18 0600 Signed Impressions: Service Date/Time: Saturday, January 06, 2018 03:01 - CONCLUSION: 1. No acute infiltrate. Postop changes on the right. Jose Lake MD (Freda Moncada) Assessment and Plan Problem List: (1) ST elevation myocardial infarction (STEMI) of inferior wall ICD Codes: I21.19 - ST elevation (STEMI) myocardial infarction involving other coronary artery of inferior wall Status: Acute Assessment and Plan 77 yo WF with COPD, PVD, history of AAA repair and lung ca who presented after a fall at home and confusion. She had a syncopal event after micturation with STEMI alert upon presentation. inferior VA- medically managed. troponin elevation overnight from 13 to 27; will repeat EKG Hgb dropped to 6. Receiving 2 units of PRBC today. consider GI consult will need LHC when stable LHC cancelled last week due to change in mental status and concern bleed. denies chest pain. echo EF 50-55%, mild-mod MR TV pacemaker placed cont asa/statin/bb/heparin L thigh hematoma- vascular following; (Freda Moncada) Assessment and Plan inferior infarct troponin elevation trending up due to profound anemia transfuse monitor Cr plan for possible diagnostic cath tomorrow NPO p MN (Jhonny Rosado MD) Freda Moncada Jan 06, 2018 09:01 Jhonny Rosado MD Jan 06, 2018 12:25
--- NOTE | 2018-01-06 10:08 | HHI.CCPN ---
Subjective Remarks/Hospital Course 01/03: 77-year-old woman, presents after collapse. Reportedly was on her way to the restroom when she did not quite make it in class. Family heard her fall. Denied LOC. Patient denies any head injury but has a small abrasion to her forehead. When paramedics arrived she stood up and lost consciousness again. She has been hypertensive and bradycardic with them. They noted inferior ST elevations with a typical changes in the STEMI alert was called. She has recent medical history of a AAA repair in October by Dr. Pittman. Patient is unable to provide any additional history. 01/04: Patient was taken to [facility] however cardiac catheterization was not done as patient had altered mental status in view of concerns by cardiology and then admitted to ICU. Patient was put on anticoagulation with heparin. Overnight she developed a left thigh hematoma which is noted on CT done this morning around 5:30 AM. Stopped heparin drip and consulted vascular surgery Dr. Pittman and also informed Dr. Rosado from cardiology. Patient is resting in bed complaining of pain over the left thigh hematoma site. She is otherwise awake and alert on nasal cannula maintaining her blood pressure and appears pale. Type and crossmatch was ordered with 1 unit PRBCs to be transfused stat. 01/05: Transfused 2 units PRBCs yesterday. Transvenous pacer remains in place. Patient is awake and alert this morning appears pale. Hemoglobin dropped on a.m. labs hence 1 unit PRBCs ordered. Being followed by cardiology for STEMI. On heparin drip. Left thigh hematoma with some blistering over some areas. Vascular surgery following. 01/06: Resting comfortably in bed not in any acute distress. Slightly confused. Following commands. Dropped hemoglobin below 7 this morning. 2 units PRBCs ordered. No hypotension. In sinus rhythm currently. Backup pacer rate at 60/ m since yesterday. Left thigh hematoma site with blistering however appears to be about the same size as yesterday. Vascular surgery following. Troponin went up again overnight which is concerning, on heparin GTT, cardiology to decide further management. Objective Vital Signs Date Time Temp Pulse Resp B/P (MAP) Pulse Ox O2 Delivery O2 Flow Rate FiO2 01/06/18 08:35 97.7 71 24 133/63 100 01/05/18 09:16 Nasal Cannula 2.00 01/03/18 19:00 100 Intake and Output 4/1/18 4/1/18 4/2/18 08:00 16:00 00:00 Intake Total 10 ml Output Total 250 ml Balance -250 ml 10 ml Result Diagram: 01/06/18 0540 01/06/18 0540 Imaging Last 24 hours Impressions Chest X-Ray 01/03/18 1902 Signed Impressions: Service Date/Time: December 19:09 - CONCLUSION: Chronic change at the right upper chest. A new or acute abnormality is not seen. Kevin Blevins MD Head CT 01/03/18 0000 Signed Impressions: Service Date/Time: December 20:11 - CONCLUSION: 1. No acute intracranial abnormality seen. 2. Atrophy. 3. Left maxillary and sphenoid sinus disease. Kevin Blevins MD Objective Remarks GENERAL: Well-nourished, well-developed patient. SKIN: Warm and dry. HEAD: Normocephalic. EYES: No scleral icterus. No injection or drainage. Pallor present NECK: Supple, trachea midline. Transvenous pacer in place CARDIOVASCULAR: Regular rate and rhythm without murmurs, gallops, or rubs. RESPIRATORY: Breath sounds equal bilaterally. No accessory muscle use. No wheezing or crackles GASTROINTESTINAL: Abdomen soft, non-tender, nondistended. MUSCULOSKELETAL: Large hematoma over left lateral thigh with significant tenderness. Blisters on skin over hematoma Site marked to watch for expansion. Extremities otherwise well perfused distally and warm bilaterally. NEURO EXAM: Awake alert, oriented 2, moving all 4 extremities, grossly nonfocal. A/P Assessment and Plan ST elevation LA CAD -Cardiac catheterization to be decided by Dr. Rosado. Discussed with vascular surgery Dr. Pittman who is okay with proceeding with anything cardiac intervention as needed including cardiac catheterization. - May require evacuation of left thigh hematoma subsequently per Dr. Pittman. - Remains on heparin drip. Cardiac catheterization deferred per Dr. Rosado. Currently in sinus rhythm with heart rate 70-80s. Backup Pacer rate at 60/m. Troponin level went up again to 26. Cardiology to decide further management including cardiac catheterization and need for permanent pacemaker. -Continue aspirin and atorvastatin - Not on a beta roberto currently has previously was having episodes of bradycardia. Will defer to cardiology. - Lasix 40 mg IV daily. 2 units PRBCs to be transfused today. Left thigh hematoma Recent AAA repair in October 2017 - Being followed by vascular surgery Dr. Pittman. - Follow serial H&H, transfuse to keep hemoglobin closer to 9 g percent. Received 2 units PRBCs on 01/04 and 1 unit PRBCs on 01/05, PRBCs ordered on 01/06. COPD - Bronchodilators as needed. Supplemental O2. Hypothyroidism -Levothyroxine Dyslipidemia -Atorvastatin DVT GI prophylaxis -Jacky's and SCDs -On anticoagulation with heparin for STEMI, cardiology to decide stopping heparin. -Pepcid -Zofran when necessary - Advance PO diet as tolerated. Discussed with Dr. Pittman, discussed with [facility] [employer] CODE STATUS DNR at this time per families wishes. Solitario Her MD Jan 06, 2018 10:08
[2018-01-06 14:48] LABS: AUTOMATED NEUTROPHIL # 15.7 TH/MM3 (1.8-7.7); BASOPHIL # 0.1 TH/MM3 (0-0.2); BASOPHIL % 0.7 % (0.0-2.0); EOSINOPHIL # 0.1 TH/MM3 (0-0.4); EOSINOPHIL % 0.6 % (0.0-4.0); HEMATOCRIT 26.9 % (35.0-46.0); HEMOGLOBIN 9.4 GM/DL (11.6-15.3); LYMPH % 5.4 % (9.0-44.0); MEAN CELL VOLUME 87.9 FL (80.0-100.0); MEAN CORPUSCULAR HEMOGLOBIN 30.6 PG (27.0-34.0); MEAN CORPUSCULAR HGB CONC 34.8 % (32.0-36.0); MEAN PLATELET VOLUME 8.3 FL (7.0-11.0); MONO % 8.8 % (0.0-8.0); MONOCYTE # 1.6 TH/MM3 (0-0.9); NEUT % 84.5 % (16.0-70.0); PLATELET COUNT 89 TH/MM3 (150-450); RED BLOOD COUNT 3.06 MIL/MM3 (4.00-5.30); RED CELL DISTRIBUTION WIDTH 16.2 % (11.6-17.2); WHITE BLOOD COUNT 18.6 TH/MM3 (4.0-11.0)
[2018-01-06] MEDS: DEXT 5%-NACL 0.45% 1000 ML INJ 1,000 ML IV SCH (15:21)
[2018-01-06 18:31] LABS: AUTOMATED NEUTROPHIL # 12.4 TH/MM3 (1.8-7.7); BASOPHIL # 0.1 TH/MM3 (0-0.2); BASOPHIL % 0.4 % (0.0-2.0); EOSINOPHIL # 0.1 TH/MM3 (0-0.4); EOSINOPHIL % 0.5 % (0.0-4.0); HEMATOCRIT 22.8 % (35.0-46.0); HEMOGLOBIN 7.8 GM/DL (11.6-15.3); LYMPH % 5.5 % (9.0-44.0); LYMPHOCYTE # 0.8 TH/MM3 (1.0-4.8); MEAN CELL VOLUME 88.1 FL (80.0-100.0); MEAN CORPUSCULAR HEMOGLOBIN 30.4 PG (27.0-34.0); MEAN CORPUSCULAR HGB CONC 34.4 % (32.0-36.0); MEAN PLATELET VOLUME 8.6 FL (7.0-11.0); MONO % 10.5 % (0.0-8.0); MONOCYTE # 1.6 TH/MM3 (0-0.9); NEUT % 83.1 % (16.0-70.0); PLATELET COUNT 74 TH/MM3 (150-450); RED BLOOD COUNT 2.58 MIL/MM3 (4.00-5.30); RED CELL DISTRIBUTION WIDTH 15.7 % (11.6-17.2); WHITE BLOOD COUNT 14.9 TH/MM3 (4.0-11.0)
[2018-01-06] MEDS: ATORVASTATIN 10 MG TAB PO SCH (21:00)
[2018-01-07] VITALS (26 sets, daily range): BP systolic 97–179; BP diastolic 51–109; PULSE 51–103; RESP 16–27; TEMP 98–98.4; O2SAT 85–100
[2018-01-07] MEDS: CHLORHEXIDINE GLUCONATE 2 % 1 PACK (2 CLOTHS)(taper/protocol) TOPICAL SCH (04:00)
[2018-01-07] MEDS: CHLORHEXIDINE GLUCONATE 2 % 1 PACK (2 CLOTHS) TOP SCH (04:00)
[2018-01-07] MEDS: LEVOTHYROXINE SODIUM 75 MCG TAB PO SCH (06:45)
[2018-01-07 07:05] LABS: AUTOMATED NEUTROPHIL # 14.8 TH/MM3 (1.8-7.7); BASOPHIL # 0.1 TH/MM3 (0-0.2); BASOPHIL % 0.3 % (0.0-2.0); EOSINOPHIL # 0.1 TH/MM3 (0-0.4); EOSINOPHIL % 0.5 % (0.0-4.0); HEMATOCRIT 28.3 % (35.0-46.0); LYMPH % 5.4 % (9.0-44.0); LYMPHOCYTE # 0.9 TH/MM3 (1.0-4.8); MEAN CELL VOLUME 87.1 FL (80.0-100.0); MEAN CORPUSCULAR HEMOGLOBIN 30.8 PG (27.0-34.0); MEAN CORPUSCULAR HGB CONC 35.4 % (32.0-36.0); MEAN PLATELET VOLUME 8.5 FL (7.0-11.0); MONO % 9.6 % (0.0-8.0); MONOCYTE # 1.7 TH/MM3 (0-0.9); NEUT % 84.2 % (16.0-70.0); PLATELET COUNT 75 TH/MM3 (150-450); RED BLOOD COUNT 3.24 MIL/MM3 (4.00-5.30); RED CELL DISTRIBUTION WIDTH 14.8 % (11.6-17.2); WHITE BLOOD COUNT 17.5 TH/MM3 (4.0-11.0)
--- NOTE | 2018-01-07 07:09 | PD.VS.PN ---
Subjective Subjective/Hospital Course Lateral thigh hematoma worse Skin ecchymotic but not ischemic L foot ok Hct decreased again Troponins up and on dopamine needs [facility] Objective Vitals/I&O Date Time Temp Pulse Resp B/P (MAP) Pulse Ox O2 Delivery O2 Flow Rate FiO2 01/07/18 06:00 75 01/07/18 04:00 98.4 74 23 143/69 (93) 91 01/07/18 04:00 74 01/07/18 02:00 78 01/07/18 00:00 98.0 78 20 174/71 (105) 98 01/07/18 00:00 78 01/06/18 22:00 74 01/06/18 21:05 98.3 80 17 151/67 100 01/06/18 20:00 76 01/06/18 20:00 98.1 76 18 128/64 (85) 100 01/06/18 18:00 72 01/06/18 16:15 69 18 142/67 (92) 100 01/06/18 16:00 97.9 70 15 147/66 (93) 100 01/06/18 16:00 70 01/06/18 15:45 72 17 145/66 (92) 100 01/06/18 15:31 71 15 168/89 (115) 100 01/06/18 15:15 72 16 142/61 (88) 100 01/06/18 15:00 73 12 148/69 (95) 100 01/06/18 14:45 73 13 148/70 (96) 100 01/06/18 14:34 73 13 163/71 (101) 100 01/06/18 14:30 70 21 188/81 (116) 100 01/06/18 14:15 66 13 151/60 (90) 100 01/06/18 14:00 72 01/06/18 14:00 72 22 151/68 (95) 100 01/06/18 13:45 74 16 154/68 (96) 100 01/06/18 13:30 71 14 163/71 (101) 100 01/06/18 13:15 72 9 155/69 (97) 100 01/06/18 13:00 71 18 150/69 (96) 100 01/06/18 12:30 69 12 149/64 (92) 100 01/06/18 12:15 68 12 149/62 (91) 100 01/06/18 12:00 71 01/06/18 12:00 97.6 71 24 131/60 (83) 100 01/06/18 11:49 97.6 73 18 152/69 100 01/06/18 11:45 75 22 152/69 (96) 92 01/06/18 11:30 68 16 139/64 (89) 100 01/06/18 11:15 71 21 139/67 (91) 97 01/06/18 11:00 74 20 142/65 (90) 100 01/06/18 10:45 70 10 155/70 (98) 100 01/06/18 10:30 68 12 145/63 (90) 99 01/06/18 10:15 68 2 145/65 (91) 100 01/06/18 10:00 68 16 157/70 (99) 99 01/06/18 10:00 68 01/06/18 09:46 67 12 168/66 (100) 100 01/06/18 09:30 72 14 144/65 (91) 100 01/06/18 09:16 72 14 153/62 (92) 91 01/06/18 09:01 75 24 171/74 (106) 100 01/06/18 09:00 79 21 100 01/06/18 08:50 97.7 71 19 143/63 100 01/06/18 08:46 73 20 143/63 (89) 01/06/18 08:35 97.7 71 24 133/63 100 01/06/18 08:31 97.7 72 14 133/63 (86) 01/06/18 08:16 67 15 163/69 (100) 100 01/06/18 08:00 75 01/06/18 08:00 75 17 98 01/06/18 07:46 71 15 146/65 (92) 100 01/06/18 07:30 67 13 145/58 (87) 100 01/06/18 07:15 71 16 145/67 (93) 100 01/07/18 01/07/18 01/07/18 07:00 15:00 23:00 Intake Total 0 ml Output Total 500 ml Balance -500 ml Physical Exam L thigh tense, slightly worse L foot ok Laboratory Laboratory Tests Test 01/06/18 14:30 01/06/18 17:45 01/07/18 06:44 White Blood Count 18.6 14.9 Red Blood Count 3.06 2.58 Hemoglobin 9.4 7.8 Hematocrit 26.9 22.8 Mean Corpuscular Volume 87.9 88.1 Mean Corpuscular Hemoglobin 30.6 30.4 Mean Corpuscular Hemoglobin Concent 34.8 34.4 Red Cell Distribution Width 16.2 15.7 Platelet Count 89 74 Mean Platelet Volume 8.3 8.6 Neutrophils (%) (Auto) 84.5 83.1 Lymphocytes (%) (Auto) 5.4 5.5 Monocytes (%) (Auto) 8.8 10.5 Eosinophils (%) (Auto) 0.6 0.5 Basophils (%) (Auto) 0.7 0.4 Neutrophils # (Auto) 15.7 12.4 Lymphocytes # (Auto) 1.0 0.8 Monocytes # (Auto) 1.6 1.6 Eosinophils # (Auto) 0.1 0.1 Basophils # (Auto) 0.1 0.1 CBC Comment DIFF FINAL AUTO DIFF Differential Comment AUTO DIFF CONFIRMED Platelet Estimate LOW Platelet Morphology Comment NORMAL Red Cell Morphology Comment NORMAL Imaging Last 48 hours Impressions Chest X-Ray 01/06/18 0600 Signed Impressions: Service Date/Time: Saturday, January 06, 2018 03:01 - CONCLUSION: 1. No acute infiltrate. Postop changes on the right. Jose Lake MD Assessment and Plan Plan Thigh hematoma after fall and STEMI 1. [facility] today 2. L thigh hematoma eval tomorrow - NPO after MN 3. T&C 4U for OR Will follow closely. Raphael Pittman MD FACS PRVI utilization management rn [facility] - [facility] at [place] [phone] Raphael Pittman MD Jan 07, 2018 07:09
[2018-01-07 07:19] LABS: ALBUMIN 2.2 GM/DL (3.4-5.0); AST (GOT) 38 U/L (15-37); BICARBONATE 24.3 MEQ/L (21.0-32.0); BLOOD UREA NITROGEN 23 MG/DL (7-18); CALCIUM 8.2 MG/DL (8.5-10.1); CHLORIDE 111 MEQ/L (98-107); CREATININE 1.06 MG/DL (0.50-1.00); GLOMERULAR FILTRATION RATE 50 ML/MIN (>89); GLUCOSE,RANDOM 98 MG/DL (74-106); SODIUM (NA) 144 MEQ/L (136-145)
[2018-01-07 07:23] LABS: ALKALINE PHOSPHATASE 63 U/L (45-117); ALT (GPT) 15 U/L (10-53); TOTAL BILIRUBIN ADULT 1.2 MG/DL (0.2-1.0); TOTAL PROTEIN 5.2 GM/DL (6.4-8.2)
--- NOTE | 2018-01-07 08:17 | PD.CARD.PN ---
Subjective Subjective Remarks denies chest pain or sob. remains pleasantly confused. Objective Medications Current Medications Medications (Trade) Dose Ordered Sig/Zahra Route Start Time Stop Time Status Last Admin (Ecotrin Ec) 81 mg DAILY PO 01/04/18 09:00 01/06/18 08:32 (Lipitor) 10 mg HS PO 01/04/18 21:00 01/04/18 21:04 (Synthroid) 75 mcg DAILY@0700 PO 01/04/18 07:00 01/06/18 06:34 (Percocet 5-325 Mg) 1 tab Q4H PRN PO 01/03/18 22:15 01/04/18 08:48 (NS Flush) 2 ml UNSCH PRN IV FLUSH 01/03/18 22:15 (NS Flush) 2 ml BID IV FLUSH 01/04/18 09:00 01/06/18 21:00 (Tylenol) 650 mg Q6H PRN PO 01/03/18 22:15 01/05/18 16:00 (Zofran Inj) 4 mg Q6H PRN IV PUSH 01/03/18 22:15 (Restoril) 15 mg HS PRN PO 01/03/18 22:15 01/04/18 21:03 (Duoneb Neb) 1 ampule Q2HR NEB PRN INH 01/03/18 22:15 01/05/18 05:19 Miscellaneous Information 1 Q361D XX 01/03/18 22:15 01/03/18 22:15 (Chlorhexidine 2% Cloth) 3 pack Taper DAILY@04 TOP 01/04/18 04:00 12/31/18 03:59 01/07/18 04:00 (Chlorhexidine 2% Cloth) 3 pack UNSCH PRN TOP 01/03/18 22:15 (Kacy-Colace) 1 tab BID PO 01/04/18 09:00 01/06/18 08:32 (Milk Of Magnesia Liq) 30 ml Q12H PRN PO 01/03/18 22:15 (Senokot) 17.2 mg Q12H PRN PO 01/03/18 22:15 (Dulcolax Supp) 10 mg DAILY PRN RECTAL 01/03/18 22:15 (Lactulose Liq) 30 ml DAILY PRN PO 01/03/18 22:15 Miscellaneous Information Patient in critical care unit? Ass... Q361D .XX 01/03/18 22:30 01/03/18 23:49 (Chlorhexidine 2% Cloth) 3 pack DAILY@04 TOPICAL 01/04/18 04:00 01/08/18 04:01 (Chlorhexidine 2% Cloth) 3 pack UNSCH PRN TOPICAL 01/03/18 22:30 01/08/18 22:18 Potassium Chloride 100 ml @ 50 mls/hr Q2H PRN IV 01/03/18 22:45 Potassium Chloride 100 ml @ 50 mls/hr Q2H PRN IV 01/03/18 22:45 01/04/18 08:30 (K-Lyte Cl Eff) 50 meq UNSCH PRN PO 01/03/18 22:45 Potassium Chloride 100 ml @ 25 mls/hr UNSCH PRN IV 01/03/18 22:45 Potassium Chloride 100 ml @ 50 mls/hr Q2H PRN IV 01/03/18 22:45 Magnesium Sulfate 4 gm/Sodium Chloride 100 ml @ 50 mls/hr UNSCH PRN IV 01/03/18 22:45 (Mag-Ox) 800 mg UNSCH PRN PO 01/03/18 22:45 Magnesium Sulfate 2 gm/Sodium Chloride 100 ml @ 50 mls/hr UNSCH PRN IV 01/03/18 22:45 (K-Phos) 2,000 mg Q4H PRN PO 01/03/18 22:45 Sodium Phosphate 30 mmol/Sodium Chloride 250 ml @ 42 mls/hr UNSCH PRN IV 01/03/18 22:45 (K-Phos) 2,000 mg UNSCH PRN PO/TUBE 01/03/18 22:45 Potassium Phosphate 30 mmol/ Sodium Chloride 260 ml @ 42 mls/hr UNSCH PRN IV 01/03/18 22:45 Heparin Sodium/ Dextrose 250 ml @ 7.2 mls/hr TITRATE PRN IV 01/04/18 09:00 01/06/18 15:17 Dopamine HCl/ Dextrose 250 ml @ 6.728 mls/ hr TITRATE PRN IV 01/04/18 20:00 (Brethine Inj) 1 mg UNSCH PRN SQ 01/04/18 20:00 (Lasix Inj) 40 mg DAILY IV PUSH 01/05/18 09:00 01/06/18 08:31 Dextrose/Sodium Chloride 1,000 ml @ 42 mls/hr [id number] IV 01/05/18 14:30 01/06/18 15:21 (Pepcid) 10 mg BID PO 01/05/18 21:00 01/06/18 08:32 Sodium Chloride 250 ml @ 15 mls/hr ONCE ONCE IV 01/06/18 19:00 01/07/18 11:39 Vital Signs / I&O Vital Signs Date Time Temp Pulse Resp B/P (MAP) Pulse Ox O2 Delivery O2 Flow Rate FiO2 01/07/18 06:00 75 01/07/18 04:00 98.4 74 23 143/69 (93) 91 01/07/18 04:00 74 01/07/18 02:00 78 01/07/18 00:00 98.0 78 20 174/71 (105) 98 01/07/18 00:00 78 01/06/18 22:00 74 01/06/18 21:05 98.3 80 17 151/67 100 01/06/18 20:00 76 01/06/18 20:00 98.1 76 18 128/64 (85) 100 01/06/18 18:00 72 01/06/18 16:15 69 18 142/67 (92) 100 01/06/18 16:00 97.9 70 15 147/66 (93) 100 01/06/18 16:00 70 01/06/18 15:45 72 17 145/66 (92) 100 01/06/18 15:31 71 15 168/89 (115) 100 01/06/18 15:15 72 16 142/61 (88) 100 01/06/18 15:00 73 12 148/69 (95) 100 01/06/18 14:45 73 13 148/70 (96) 100 01/06/18 14:34 73 13 163/71 (101) 100 01/06/18 14:30 70 21 188/81 (116) 100 01/06/18 14:15 66 13 151/60 (90) 100 01/06/18 14:00 72 01/06/18 14:00 72 22 151/68 (95) 100 01/06/18 13:45 74 16 154/68 (96) 100 01/06/18 13:30 71 14 163/71 (101) 100 01/06/18 13:15 72 9 155/69 (97) 100 01/06/18 13:00 71 18 150/69 (96) 100 01/06/18 12:30 69 12 149/64 (92) 100 01/06/18 12:15 68 12 149/62 (91) 100 01/06/18 12:00 71 01/06/18 12:00 97.6 71 24 131/60 (83) 100 01/06/18 11:49 97.6 73 18 152/69 100 01/06/18 11:45 75 22 152/69 (96) 92 01/06/18 11:30 68 16 139/64 (89) 100 01/06/18 11:15 71 21 139/67 (91) 97 01/06/18 11:00 74 20 142/65 (90) 100 01/06/18 10:45 70 10 155/70 (98) 100 01/06/18 10:30 68 12 145/63 (90) 99 01/06/18 10:15 68 2 145/65 (91) 100 01/06/18 10:00 68 16 157/70 (99) 99 01/06/18 10:00 68 01/06/18 09:46 67 12 168/66 (100) 100 01/06/18 09:30 72 14 144/65 (91) 100 01/06/18 09:16 72 14 153/62 (92) 91 01/06/18 09:01 75 24 171/74 (106) 100 01/06/18 09:00 79 21 100 01/06/18 08:50 97.7 71 19 143/63 100 01/06/18 08:46 73 20 143/63 (89) 01/06/18 08:35 97.7 71 24 133/63 100 01/06/18 08:31 97.7 72 14 133/63 (86) 01/06/18 08:16 67 15 163/69 (100) 100 I/O 01/06/18 01/06/18 01/06/18 01/07/18 01/07/18 01/07/18 07:00 15:00 23:00 07:00 15:00 23:00 Intake Total 875 ml 1562 ml 0 ml Output Total 250 ml 1325 ml 500 ml Balance -250 ml 875 ml 237 ml -500 ml Intake Oral 0 ml IV Total 35 ml 1462 ml Packed Cells 800 ml Blood Product IV Normal Saline Flush 40 ml 100 ml Output Urine Total 250 ml 1325 ml 500 ml # Bowel Movements 0 0 Physical Exam GENERAL: SKIN: Warm and dry. HEAD: Atraumatic. Normocephalic. EYES: Pupils equal and round. No scleral icterus ENT: No nasal bleeding or discharge. NECK: Trachea midline. No JVD. CARDIOVASCULAR: Regular rate and rhythm. no murmurs RESPIRATORY: No accessory muscle use. Clear to auscultation. Breath sounds equal bilaterally. GASTROINTESTINAL: Abdomen soft, non-tender, nondistended. Hepatic and splenic margins not palpable. MUSCULOSKELETAL: Extremities without clubbing, cyanosis, or edema. upper L thigh hematoma NEUROLOGICAL: Awake and alert. No obvious cranial nerve deficits. Normal speech. PSYCHIATRIC: pleasantly confused. oriented to date only. Laboratory Laboratory Tests Test 01/06/18 14:30 01/06/18 17:45 01/07/18 06:44 White Blood Count 18.6 TH/MM3 14.9 TH/MM3 17.5 TH/MM3 Red Blood Count 3.06 MIL/MM3 2.58 MIL/MM3 3.24 MIL/MM3 Hemoglobin 9.4 GM/DL 7.8 GM/DL 10.0 GM/DL Hematocrit 26.9 % 22.8 % 28.3 % Mean Corpuscular Volume 87.9 FL 88.1 FL 87.1 FL Mean Corpuscular Hemoglobin 30.6 PG 30.4 PG 30.8 PG Mean Corpuscular Hemoglobin Concent 34.8 % 34.4 % 35.4 % Red Cell Distribution Width 16.2 % 15.7 % 14.8 % Platelet Count 89 TH/MM3 74 TH/MM3 75 TH/MM3 Mean Platelet Volume 8.3 FL 8.6 FL 8.5 FL Neutrophils (%) (Auto) 84.5 % 83.1 % 84.2 % Lymphocytes (%) (Auto) 5.4 % 5.5 % 5.4 % Monocytes (%) (Auto) 8.8 % 10.5 % 9.6 % Eosinophils (%) (Auto) 0.6 % 0.5 % 0.5 % Basophils (%) (Auto) 0.7 % 0.4 % 0.3 % Neutrophils # (Auto) 15.7 TH/MM3 12.4 TH/MM3 14.8 TH/MM3 Lymphocytes # (Auto) 1.0 TH/MM3 0.8 TH/MM3 0.9 TH/MM3 Monocytes # (Auto) 1.6 TH/MM3 1.6 TH/MM3 1.7 TH/MM3 Eosinophils # (Auto) 0.1 TH/MM3 0.1 TH/MM3 0.1 TH/MM3 Basophils # (Auto) 0.1 TH/MM3 0.1 TH/MM3 0.1 TH/MM3 CBC Comment DIFF FINAL AUTO DIFF AUTO DIFF Differential Comment AUTO DIFF CONFIRMED Platelet Estimate LOW Platelet Morphology Comment NORMAL Red Cell Morphology Comment NORMAL Activated Partial Thromboplast Time 31.3 SEC Blood Urea Nitrogen 23 MG/DL Creatinine 1.06 MG/DL Random Glucose 98 MG/DL Total Protein 5.2 GM/DL Albumin 2.2 GM/DL Calcium Level 8.2 MG/DL Alkaline Phosphatase 63 U/L Aspartate Amino Transf (AST/SGOT) 38 U/L Alanine Aminotransferase (ALT/SGPT) 15 U/L Total Bilirubin 1.2 MG/DL Sodium Level 144 MEQ/L Potassium Level 3.8 MEQ/L Chloride Level 111 MEQ/L Carbon Dioxide Level 24.3 MEQ/L Anion Gap 9 MEQ/L Estimat Glomerular Filtration Rate 50 ML/MIN Assessment and Plan Problem List: (1) ST elevation myocardial infarction (STEMI) of inferior wall ICD Codes: I21.19 - ST elevation (STEMI) myocardial infarction involving other coronary artery of inferior wall Status: Acute Assessment and Plan 77 yo WF with COPD, PVD, history of AAA repair and lung ca who presented after a fall at home and confusion. She had a syncopal event after micturation with STEMI alert upon presentation. inferior WA- medically managed. troponin elevated over the weekend; likely due to profound anemia hgb improved after transfusion plan for diagnostic cath today denies chest pain. echo EF 50-55%, mild-mod MR TV pacemaker placed cont asa/statin/bb/heparin L thigh hematoma- vascular following; Freda Moncada Jan 07, 2018 08:17
[2018-01-07] MEDS: SODIUM CHLORIDE 0.9% FLUSH 10 ML FLUSH IV FLUSH SCH ×2 (09:00→21:00)
[2018-01-07] MEDS: FAMOTIDINE 20 MG TAB PO SCH ×2 (09:00→21:00)
--- NOTE | 2018-01-07 09:08 | EKG ---
Date Performed: 01/06/2018 Time Performed: 11:59:23 PTAGE: 77 years EKG: Sinus rhythm WITH OCCASIONAL VENTRICULAR PREMATURE COMPLEXES AND PACED RHYTHM MODERATE INTRAVENTRICULAR CONDUCTIO N DELAY NONSPECIFIC T-WAVE ABNORMALITY ABNORMAL ECG PREVIOUS TRACING : 01/04/2018 13.34 Compared to previous tracing, rate slower, inferior ST marii vation no longer present DOCTOR: Vinny Smart Interpretating Date/Time 01/07/2018 09:07:28
[2018-01-07] MEDS: FUROSEMIDE 40 MG/4 ML VIAL IV PUSH SCH (09:39)
[2018-01-07] MEDS: DOCUSATE SODIUM 50 MG/SENNA 8.6 MG TAB PO SCH ×2 (09:39→21:00)
[2018-01-07] MEDS: ASPIRIN EC 81 MG TABEC PO SCH (09:39)
[2018-01-07] MEDS ORDERED: MIDAZOLAM HCL 2 MG/2 ML VIAL ONE (12:39)
[2018-01-07] MEDS ORDERED: NITROGLYCERIN INJ 5 ML ONE (12:39)
[2018-01-07] MEDS ORDERED: LIDOCAINE HCL 1% PF 30 ML VIAL ONE (12:44)
[2018-01-07] MEDS ORDERED: HEPARIN-NS/PF FLUSH BAG 1,000 ML IV FLUSH ONE ×2 (12:44→12:46)
--- NOTE | 2018-01-07 13:14 | HHI.CCPN ---
Subjective Remarks/Hospital Course 01/03: 77-year-old woman, presents after collapse. Reportedly was on her way to the restroom when she did not quite make it in class. Family heard her fall. Denied LOC. Patient denies any head injury but has a small abrasion to her forehead. When paramedics arrived she stood up and lost consciousness again. She has been hypertensive and bradycardic with them. They noted inferior ST elevations with a typical changes in the STEMI alert was called. She has recent medical history of a AAA repair in October by Dr. Pittman. Patient is unable to provide any additional history. 01/04: Patient was taken to [facility] however cardiac catheterization was not done as patient had altered mental status in view of concerns by cardiology and then admitted to ICU. Patient was put on anticoagulation with heparin. Overnight she developed a left thigh hematoma which is noted on CT done this morning around 5:30 AM. Stopped heparin drip and consulted vascular surgery Dr. Pittman and also informed Dr. Rosado from cardiology. Patient is resting in bed complaining of pain over the left thigh hematoma site. She is otherwise awake and alert on nasal cannula maintaining her blood pressure and appears pale. Type and crossmatch was ordered with 1 unit PRBCs to be transfused stat. 01/05: Transfused 2 units PRBCs yesterday. Transvenous pacer remains in place. Patient is awake and alert this morning appears pale. Hemoglobin dropped on a.m. labs hence 1 unit PRBCs ordered. Being followed by cardiology for STEMI. On heparin drip. Left thigh hematoma with some blistering over some areas. Vascular surgery following. 01/06: Resting comfortably in bed not in any acute distress. Slightly confused. Following commands. Dropped hemoglobin below 7 this morning. 2 units PRBCs ordered. No hypotension. In sinus rhythm currently. Backup pacer rate at 60/ m since yesterday. Left thigh hematoma site with blistering however appears to be about the same size as yesterday. Vascular surgery following. Troponin went up again overnight which is concerning, on heparin GTT, cardiology to decide further management. 01/07: Resting in bed this morning not in any acute distress. Complaining of some pain over left thigh hematoma site. For cardiac catheterization today. Received 2 units PRBCs yesterday. Objective Vital Signs Date Time Temp Pulse Resp B/P (MAP) Pulse Ox O2 Delivery O2 Flow Rate FiO2 4/2/18 12:00 98.0 84 22 117/61 (79) 94 01/05/18 09:16 Nasal Cannula 2.00 01/03/18 19:00 100 Intake and Output 01/07/18 01/07/18 01/08/18 08:00 16:00 00:00 Intake Total 0 ml Output Total 500 ml Balance -500 ml Result Diagram: 01/07/18 0644 01/07/18 0644 Imaging Last 24 hours Impressions Chest X-Ray 01/03/18 1902 Signed Impressions: Service Date/Time: December 19:09 - CONCLUSION: Chronic change at the right upper chest. A new or acute abnormality is not seen. Kevin Blevins MD Head CT 01/03/18 0000 Signed Impressions: Service Date/Time: December 20:11 - CONCLUSION: 1. No acute intracranial abnormality seen. 2. Atrophy. 3. Left maxillary and sphenoid sinus disease. Kevin Blevins MD Objective Remarks GENERAL: Well-nourished, well-developed patient. SKIN: Warm and dry. HEAD: Normocephalic. EYES: No scleral icterus. No injection or drainage. Pallor present NECK: Supple, trachea midline. Transvenous pacer in place CARDIOVASCULAR: Regular rate and rhythm without murmurs, gallops, or rubs. RESPIRATORY: Breath sounds equal bilaterally. No accessory muscle use. No wheezing or crackles GASTROINTESTINAL: Abdomen soft, non-tender, nondistended. MUSCULOSKELETAL: Large hematoma over left lateral thigh with significant tenderness. Blisters on skin over hematoma Site marked to watch for expansion. Extremities otherwise well perfused distally and warm bilaterally. NEURO EXAM: Awake alert, oriented 2, moving all 4 extremities, grossly nonfocal. A/P Assessment and Plan ST elevation OR CAD -Cardiac catheterization scheduled for 01/[address] Rosado. Discussed with vascular surgery Dr. Pittman who is okay with proceeding with anything cardiac intervention as needed including cardiac catheterization. -Possible evacuation of left thigh hematoma on 01/[address] Pittman. - Remains on heparin drip. Currently in sinus rhythm with heart rate 70-80s. Backup Pacer rate at 60/m. Cardiology to decide further management and need for permanent pacemaker. -Continue aspirin and atorvastatin - Not on a beta roberto currently has previously was having episodes of bradycardia. Will defer to cardiology. - Lasix 40 mg IV daily. 2 units PRBCs to be transfused 01/06. Left thigh hematoma Recent AAA repair in October 2017 - Being followed by vascular surgery Dr. Pittman. - Follow serial H&H, transfuse to keep hemoglobin closer to 9 g percent. Received 2 units PRBCs on 01/04 and 1 unit PRBCs on 01/05, 2 units PRBCs ordered on 01/06. COPD - Bronchodilators as needed. Supplemental O2. Hypothyroidism -Levothyroxine Dyslipidemia -Atorvastatin DVT GI prophylaxis -Jacky's and SCDs -On anticoagulation with heparin for STEMI, cardiology to decide stopping heparin. -Pepcid -Zofran when necessary - Advance PO diet as tolerated. Discussed with [employer] [employer]. CODE STATUS DNR at this time per families wishes. Solitario Her MD Jan 07, 2018 13:14
[2018-01-07] MEDS ORDERED: SODIUM CHLOR 0.9% 250 ML INJ 250 ML IV PRN (13:15)
[2018-01-07] MEDS ORDERED: ATROPINE SULFATE 1 MG/ML VIAL IV PUSH PRN (13:15)
[2018-01-07] MEDS ORDERED: BACITRACIN OINT 0.9 GM PKT TOP ONE (13:15)
[2018-01-07] MEDS ORDERED: LIDOCAINE HCL 1% 50 ML VIAL INFIL PRN (13:15)
--- NOTE | 2018-01-07 13:34 | MA ---
cc: Jhonny Rosado MD DATE: 01/07/2018 INDICATION: Non-ST elevation myocardial infarction. PROCEDURES PERFORMED: 1. Fluoroscopy with interpretation. 2. Coronary angiography. METHOD: Risks, benefits and alternatives discussed with the patient. Patient understood, consented to the procedure. The patient's family was called and consented to the procedure. METHOD: Right groin prepped and draped in a sterile fashion. Right groin was anesthetized with 2% lidocaine. Right common femoral artery was cannulated and a 4-Upper Sorbian, 11 cm sheath was placed without difficulty. CORONARY ANGIOGRAPHY: 1. Left main coronary has mild luminal irregularities. 2. Left anterior descending coronary has a calcified 75% stenosis in the mid segment. There is a smaller diagonal branch in the mid to distal segment, which is patent. 3. Left circumflex gives rise to an obtuse marginal branch. There are mild luminal irregularities. 4. The right coronary artery is 99% subtotally occluded and heavily calcified. ALISE 2 flow distally to the posterior descending and posterolateral branch. CONCLUSIONS: Severe mid left anterior descending and right coronary artery stenosis. PLAN: The patient's right coronary is subtotally occluded. Would be a difficult vessel for an intervention, and probably would require rotational atherectomy. Given her severe 2-vessel disease, we should consider cardiothoracic surgical consultation and her candidacy for bypass surgery. At this point, we will stop where we are at, especially given her recent renal dysfunction and blood product transfusions and obtain cardiothoracic surgeon consultation. Jhonny Rosado MD THADDEUS/SB , 01:18 PM , 01:33 PM [facility]
--- NOTE | 2018-01-07 13:35 | CATHPROC ---
[facility] HIS Report Study Information Study Number Admission Scheduled Start Study Start [id number] Jan 03 2018 6:52PM 01/03/2018 Jan 07 2018 11:52AM [facility] Cardiac Catheterization Admit Source Facility Department Other [facility] - [facility] Enumerator Physician and Clinical Staff Initial Jhonny Hernandez Manufacturing Intern Magaly Abarca RN Recorder Hetal Membreno,RT(R) Scrub Kierra Schneider,RT(R) Procedures Performed Procedure Location (Site) Vessel Name Coronary Angiograms LCA Left Coronary Coronary Angiograms RCA Right Coronary Equipment Time Fire Chief'S Aide Description Size Mfg Part Number Used/Scraped TRANSDUCER, TRUWAVE [id number] 12:53 ERVIN BAÑUELOS * Used W/STOCKCOCK *[id number] *[id number] *[id number] 12:53 MEDLINE IND[employer] PACK, CCL CUSTOM * Used *[id number] 12:53 [employer] PACER PEN, SKIN DUAL W/ RULER * Used *[id number] 12:53 CHNL WIRE, 3MMJ .035 180CM 180CM Used *[id number] 12:53 NAMIC MANIFOLD, 4 PORT * Used *[id number] 12:53 NYCOMED OMNIPAQUE, 350 MG, 150ML 150ML [id number] Used [id number] 12:53 SHULTZ MED[employer] BLANKET,WARM AIR CCL * Used *[id number] 12:53 TERUMTwillion MEDICAL SHEATH, FR4 TERUMO (10CM) FR 4 Used *[id number] History: Current Medications Medication Dosage/Unit Route Frequency Last Date/Time Taken ASA Synthroid LIPITOR History: Allergies Allergy Reaction Sulfa CAN'T REMEMBER REACTION vancomycin ITCHINESS, REDNESS Sulfa (Sulfonamide Antibiotics) CAN'T REMEMBER REACTION bupropion Rash History: Risk Factors Family History of Hypertension Dyslipidemia Previous TN Previous Heart Failure Premature CAD Yes Yes No No No Prior Valve Prior PCI Prior CABG Surgery No No No Cerebrovascular Peripheral Artery Chronic Lung On Dialysis Diabetes Disease Disease Disease No No Yes Yes No History: Symptoms/Diagnosis Selection Items Syncope History: Stress Tests Stress or Imaging Studies Performed No History: Other Disease Selection Items HTN History: Other Current Smoker Method Packs a Day Years Used Pack Years No Cigarettes 1 42 42 Labs Hgb (g/dl) Hct (%) Platelets (thousands) 11.60-17.00 35.00-51.00 150.00-450.00 6.1 17.8 110 Glucose (mg/dl) BUN (mg/dl) Creatinine (mg/dl) BUN:Creatinine (1:x) 74.00-106.00 7.00-18.00 0.50-1.30 10.00-20.00 98 23 1.1 20.9 Na (meq/l) K (meq/l) Cl (meq/l) CO2 (mmol/L) 136.00-145.00 3.50-5.10 98.00-107.00 21.00-32.00 144 3.8 111 24.3 Troponin I (ng/ml) CPK (u/l) CPK-MB (ng/ML) 0.02-0.05 26.00-308.00 0.50-3.60 27.9 422 55.9 Medication Medication Total Dose (Bolus/Oral) Medication Total Dosage/Unit 1% XYLOCAINE 20 mL FENTANYL 50 mcg VERSED 1 mg Medications (Bolus/Oral) Medication Time Given Dosage/Unit Administered By Reason FENTANYL 01/07/2018 12:44:59 PM 50 mcg Magaly Abarca 50 mcg FENTANYL given in lab by Magaly Abarca, SUSAN via Central IV in the neck. Ordered by Len Rosado. VERSED 01/07/2018 12:45:08 PM 1 mg Magaly Abarca 1 mg VERSED given in lab by Magaly Abarca, SUSAN via Central IV. Ordered by Jhonny Rosado. 1% XYLOCAINE 01/07/2018 12:58:13 PM 20 mL Jhonny Rosado 20 mL 1% XYLOCAINE given in lab by Jhonny Rosado in Right Groin via Subcutaneous. Medication (Drip) Medication Time Given Dosage/Unit Concentration/Unit Diluent (ml) Solution IV Solutions 01/07/2018 12:44:26 PM 50 mL (IV) NaCl .9 Patient arrived on IV Solutions via Central IV. Pump/Drip Flow using NaCl .9. Initial Case Assessment Cardiovascular HR Rhythm NIBP Chest Pain 84 SR 120/92 0 Edema Present Skin color Skin None Pale Warm Dry Circulatory - Right Pulses Dorsalis Pedis Femoral 1 1 Scale (0,1,2,3,4,d) Scale (0,1,2,3,4,d) Respiration - General Respiration Rate SpO2 (%) O2 (lpm) (B/min) 11 96 2 Chronological Log Time Study Chronological Log 12::40 Patient arrived via Bed. 12::42 Patient Name, D.O.B, / Armband Verified By R.N. ::42 Consent signed by the physician and the patient and verified by the [facility] staff. 12::43 Pre-op and post- op instructions given; patient acknowledges understanding of instruction s. 12:40:00 MD arrived. Vitals capture started with the following parameters, Patient=Adult, Interval=5 min, Initial Pr svubwy=281 mmHg, 12:40:36 Deflation Rate=5 mmHg, Cuff placed on Unknown 12:41:02 HR=88 bpm, ZNCI=631/92 mmhg, SpO2=87.0 %, Resp=14 B/min ::40 Verbal Stimulation=2 Physical Stimulation=1 Airway=2 Respiration=2 TOTAL=7. (0=absent, 1=li mited, 2=present) 12:43:28 Presedation assessment performed by Census Enumerator RN. 12:43:30 Allens test performed on the right radial and ulnar artery. Failed, going groin. 12:43:43 Patient has been NPO for More than 6Hrs. 12:43:45 Skin Breakdown- several bruises and abrasions throughout entire body 12:44:20 Patient Warmer Placed on the Table. 12:44:21 Jasmin Prominences Protected 12:44:22 A # 20 IV was noted in the Forearm (right). Grade = 0 12:44:25 A # 20 IV was noted in the Forearm (left). Grade = 0 12:44:26 Patient arrived on IV Solutions via Central IV. Pump/Drip Flow using NaCl .9. 12:44:29 History and physical on the chart or being dictated. Assessment: Initial Case, HR=84 BPM, Rhythm=SR, NCCQ=596/92 mmhg, Chest Pain=0, Edema=None, Col or=Pale, Skin = Warm, Dry 12:44:30 Right Pulses: Hakan Ped=1, Femoral=1 Respiration: Resp=11 B/min, SpO2=96 %, O2=2 lpm 12:44:59 50 mcg FENTANYL given in lab by Magaly Abarca, SUSAN via Central IV in the neck. Ordered by Jhonny Rosado. 12:45:08 1 mg VERSED given in lab by Magaly Abarca RN via Central IV. Ordered by Jhonny Rosado. 12:46:46 HR=92 bpm, FYIO=184/65 mmhg, SpO2=96.0 %, Resp=10 B/min 12:47:01 Reference ECG taken 12:51:03 Pressure channel 1 zeroed. 12:51:16 HR=96 bpm, JLQN=769/88 mmhg, SpO2=99.0 %, Resp=10 B/min 12:56:17 HR=88 bpm, LYZZ=759/76 mmhg, UcO4=801.0 %, Resp=17 B/min Time Out. Correct patient, correct procedure, correct physician, power injector not loaded with contrast with surgical 12:57:04 team present. Time Out Concurred by MD and individual staff in procedure. 12:58:01 Case Start 12:58:13 20 mL 1% XYLOCAINE given in lab by Jhonny Rosado in Right Groin via Subcutaneous. 12:59:04 Access site was Right Femoral Artery. 12:59:18 A SHEATH, FR4 TERUMO (10CM) FR 4 was advanced into the Fem Art (right) using the Percutaneo us technique. A JR 4.0 INFINITI CATHETER FR 4 was advanced over a wire. OMNIPAQUE, 350 MG, 150ML 150ML was us ed for 13:00:08 injections. Recorded Pressure: Ao, HR=88, Condition=Condition 1 13:01:06 (Aorta) Ao 151/71/106 13:01:14 HR=85 bpm, AFUJ=525/82 mmhg, ZvT3=271.0 %, Resp=14 B/min 13:01:35 The RCA was injected and visualized at various angles. OMNIPAQUE, 350 MG, 150ML 150ML used . After removing the current catheter a JL 4.0 INFINITI CATHETER FR 4 was advanced over a WIRE, 3 MMJ .035 180CM 13:02:11 180CM. 13:04:08 The LCA was injected and visualized at various angles. OMNIPAQUE, 350 MG, 150ML 150ML used . 13:06:04 Catheter was removed 13:06:10 Case End 13:06:15 HR=93 bpm, NHVW=413/82 mmhg, FfX0=009.0 %, Resp=13 B/min 13:06:21 Activated Clotting Time Drawn 13:10:33 Sheath removed; pressure applied to access site. 13:11:14 HR=92 bpm, JJAD=081/79 mmhg, XyM6=721.0 %, Resp=8 B/min 13:13:18 ACT (Normal Range 90-180) = 143 13:16:13 HR=93 bpm, SJQC=090/86 mmhg, LqT2=582.0 %, Resp=14 B/min 13:18:02 Sterile dressing applied to site 13:18:05 No case complications noted. 13:18:46 Cine recording checked. 13:18:50 Bedside Report will be given. 13:21:14 HR=90 bpm, IHJL=890/88 mmhg, IrO5=560.0 %, Resp=17 B/min 13:26:15 HR=89 bpm, XNFC=609/86 mmhg, VhD3=398.0 %, Resp=17 B/min 13:32:12 Vitals capture stopped. 13:35:36 Patient moved to [facility] End Study - Contrast Media Used In Study Contrast Total Opened (mL) Total Used (mL) Total Wasted (mL) Omnipaque 40 40 0 End Study - Maximum Contrast Load Max Contrast Load (mL) 271.9 End Study - Radiation Exposure Fluoro Time (minutes) 1.3 End Study - Sheaths Sheaths Pulled By Sheath Hold Time (min) Kierra Schneider 20 End Study - Patient Disposition Complications Transferred To Interventional Outcome No Critical Care Bed No attempt made
[2018-01-07] MEDS ORDERED: oxyCODONE/ACETAMINOPHEN 5 MG/325 MG TAB PO PRN (14:00)
[2018-01-07] MEDS ORDERED: ACETAMINOPHEN 325 MG TAB PO PRN (14:00)
[2018-01-07] MEDS ORDERED: IOHEXOL 350 MG/ML 50 ML BTL (for Cath Lab) OTHER ONE (15:03)
--- NOTE | 2018-01-07 16:05 | PD.CAR.PN ---
CVT Progress Note Subjective/Hospital Course: pt seen and evaluated, full consult to follow sts risk score does not reflect recent blood loss anemia confusion/agitation incapacity to make own decision RISK SCORES About the STS Risk Calculator Procedure: CAB Only Risk of Mortality: 9.81% Morbidity or Mortality: 44.606% Long Length of Stay: 20.821% Short Length of Stay: 14.54% Permanent Stroke: 1.59% Prolonged Ventilation: 37.161% DSW Infection: 0.478% Renal Failure: 10.859% Reoperation: 14.587% Objective: Vital Signs Date Time Temp Pulse Resp B/P (MAP) Pulse Ox O2 Delivery O2 Flow Rate FiO2 01/07/18 12:00 98.0 84 22 117/61 (79) 94 01/07/18 12:00 84 01/07/18 10:00 73 01/07/18 08:00 98.2 75 26 151/78 (102) 90 01/07/18 08:00 83 01/07/18 06:00 75 01/07/18 04:00 98.4 74 23 143/69 (93) 91 01/07/18 04:00 74 01/07/18 02:00 78 01/07/18 00:00 98.0 78 20 174/71 (105) 98 01/07/18 00:00 78 01/06/18 22:00 74 01/06/18 21:05 98.3 80 17 151/67 100 01/06/18 20:00 76 01/06/18 20:00 98.1 76 18 128/64 (85) 100 01/06/18 18:00 72 01/06/18 16:15 69 18 142/67 (92) 100 Labs: Laboratory Tests Test 01/07/18 06:44 White Blood Count 17.5 TH/MM3 (4.0-11.0) Red Blood Count 3.24 MIL/MM3 (4.00-5.30) Hemoglobin 10.0 GM/DL (11.6-15.3) Hematocrit 28.3 % (35.0-46.0) Mean Corpuscular Volume 87.1 FL (80.0-100.0) Mean Corpuscular Hemoglobin 30.8 PG (27.0-34.0) Mean Corpuscular Hemoglobin Concent 35.4 % (32.0-36.0) Red Cell Distribution Width 14.8 % (11.6-17.2) Platelet Count 75 TH/MM3 (150-450) Mean Platelet Volume 8.5 FL (7.0-11.0) Neutrophils (%) (Auto) 84.2 % (16.0-70.0) Lymphocytes (%) (Auto) 5.4 % (9.0-44.0) Monocytes (%) (Auto) 9.6 % (0.0-8.0) Eosinophils (%) (Auto) 0.5 % (0.0-4.0) Basophils (%) (Auto) 0.3 % (0.0-2.0) Neutrophils # (Auto) 14.8 TH/MM3 (1.8-7.7) Lymphocytes # (Auto) 0.9 TH/MM3 (1.0-4.8) Monocytes # (Auto) 1.7 TH/MM3 (0-0.9) Eosinophils # (Auto) 0.1 TH/MM3 (0-0.4) Basophils # (Auto) 0.1 TH/MM3 (0-0.2) CBC Comment AUTO DIFF Differential Comment AUTO DIFF CONFIRMED Platelet Estimate LOW (NORMAL) Platelet Morphology Comment NORMAL (NORMAL) Activated Partial Thromboplast Time 31.3 SEC (24.3-30.1) Blood Urea Nitrogen 23 MG/DL (7-18) Creatinine 1.06 MG/DL (0.50-1.00) Random Glucose 98 MG/DL (74-106) Total Protein 5.2 GM/DL (6.4-8.2) Albumin 2.2 GM/DL (3.4-5.0) Calcium Level 8.2 MG/DL (8.5-10.1) Alkaline Phosphatase 63 U/L (45-117) Aspartate Amino Transf (AST/SGOT) 38 U/L (15-37) Alanine Aminotransferase (ALT/SGPT) 15 U/L (10-53) Total Bilirubin 1.2 MG/DL (0.2-1.0) Sodium Level 144 MEQ/L (136-145) Potassium Level 3.8 MEQ/L (3.5-5.1) Chloride Level 111 MEQ/L (98-107) Carbon Dioxide Level 24.3 MEQ/L (21.0-32.0) Anion Gap 9 MEQ/L (5-15) Estimat Glomerular Filtration Rate 50 ML/MIN (>89) Result Diagram: 01/07/1864301/07/18643 (1) ST elevation myocardial infarction (STEMI) of inferior wall Lian Treadwell Jan 07, 2018 16:05
--- NOTE | 2018-01-07 16:58 | MB ---
cc: Lian Treadwell DATE: 01/07/2018 HISTORY OF PRESENT ILLNESS: A 77-year-old female, apparently presented to the emergency room by EVAC for a recent fall. She has been in assisted living for the last 4-5 weeks. She underwent an AAA repair in October by Dr. Pittman, endovascular aortic abdominal aneurysm repair, 10/18/2017, right SFA endarterectomy, left common femoral artery endarterectomy. Apparently, she was on her way to the restroom when she fell and hit apparently the toilet or between the tub. She sustained a small abrasion to her left jaw area and had a small abrasion to her forehead. Per the sons, on of them, Kevin, who is the power of family law attorney, said after her initial surgery in October, she went to [facility] for 3 weeks. She was home for a week, but then they placed her in an assisted living because of agitation, was even started on some antidepressant. She needed assistance with dressing. She has had very poor appetite and somewhat of a failure to thrive. After the fall, they did immediate CT head, which showed no acute abnormality, no bleed. She was found to have ST elevation in her inferior leads, but she was very confused upon arrival. Her initial troponin was 13, which elevated up to 27. She underwent cardiac catheterization. Again, concern was for her altered mental status. She was placed on anticoagulation with heparin and then developed a significant left thigh hematoma. The heparin drip was stopped and the patient has been seen by Dr. Pittman. My understanding is that he is planning to drain the actual hematoma, possibly in the a.m. She became very anemic with the blood loss in her thigh. Hemoglobin went down to 6.1. She has received a total of 5 units of packed RBCs. Hemoglobin is now 10. The patient remained confused over the following couple of days and then had her heart catheterization today by Dr. Rosado, which showed a 75% stenosis in the midsegment of the LAD. The right coronary artery had a 99% subtotally occluded and heavily calcified vessel. We were consulted for coronary artery bypass grafting. Her STS data was documented and evaluated at 9.81. Risk of mortality morbidity at 44%, which does not include her altered mental status, recent blood loss anemia, fairly frail state. PAST MEDICAL HISTORY: Significant for peripheral arterial disease. She had history of right lung cancer with prior lobectomy in 2009, hypothyroidism, coronary artery disease. PAST SURGICAL HISTORY: Include the EVAR with bilateral groin reconstruction, lobectomy in 2009. ALLERGIES: INCLUDE SULFA, VANCOMYCIN AND BUSPAR. FAMILY HISTORY: Noncontributory. SOCIAL HISTORY: The patient now living in an assisted living. Has 2 sons, one is Kevin, who is the power of family law attorney. HOME MEDICATIONS: Include Lipitor, aspirin, Percocet, levothyroxine. REVIEW OF SYSTEMS: Unobtainable at this time. PHYSICAL EXAMINATION: GENERAL: Somewhat ill-appearing female, very confused, agitated. She does follow some simple commands by grasping my hand upon request and moving her lower extremities. Her speech is clear. However, she is not alert to time, date or place. She is somewhat agitated also. She does have an abrasion to her forehead and also her left jaw area. HEENT: Her pupils are approximately 3 mm, midline, reactive. Oral mucosa very dry. NECK: Supple. No JVD. CARDIOVASCULAR: Heart sounds S1, S2, soft systolic murmur. She has a temporary pacemaker, which is a backup rate at 60. She is pacing at a rate of 60 at this time. LUNGS: Diminished in the bases, otherwise clear to auscultation. ABDOMEN: Soft, nontender. EXTREMITIES: She has a very large hematoma with an abrasion to the left upper thigh area. She has got a pressure dressing with an Neel wrap. She has Doppler pulses only. The left foot is much cooler than the right; however, she has a prolonged capillary refill on that left in the toes. LABORATORY DATA: Lab work shows hemoglobin now of 10, hematocrit of 28, white count of 17, platelet count of 75. Sodium 144, potassium 3.8, BUN of 23, creatinine 1.06. Troponin as above in the HPI. MRSA screen detected positive. Lower extremity CT, large hematoma laterally of the left thigh, intact femur. Chest x-ray yesterday showed no acute infiltrates and postop changes on the right. IMPRESSION: This is a 77-year-old female who presented with a ST elevation myocardial infarction alert, was very confused on admission, still remains confused with altered mental status. She underwent cardiac catheterization with 2-vessel disease, ejection fraction of 50%. Risk of mortality again is 9.81, which does not include her other risk factors including recent blood loss, anemia, large left thigh hematoma, acute kidney injury probably due to blood loss. The cardiac films will be evaluated by Dr. Keira Armendariz and decision to go forward with surgery per his discretion. At this time, patient is very high risk again for mortality. I did speak with both of the sons, which one of them is the power of family law attorney. They are requesting to have palliative care consulted to speak with them first before deciding on any potential cardiovascular surgery. KIAH Vo MD JRT/REJI , 04:16 PM , 04:57 PM
[2018-01-07] MEDS: DEXT 5%-NACL 0.45% 1000 ML INJ 1,000 ML IV SCH (18:42)
[2018-01-07 20:29] LABS: BASOPHIL % 0.2 % (0.0-2.0); EOSINOPHIL % 0.2 % (0.0-4.0); HEMATOCRIT 25.3 % (35.0-46.0); HEMOGLOBIN 8.6 GM/DL (11.6-15.3); LYMPHOCYTE # 1.4 TH/MM3 (1.0-4.8); MEAN CELL VOLUME 88.5 FL (80.0-100.0); MEAN PLATELET VOLUME 8.7 FL (7.0-11.0); NEUT % 84.6 % (16.0-70.0); PLATELET COUNT 83 TH/MM3 (150-450); RED BLOOD COUNT 2.86 MIL/MM3 (4.00-5.30); RED CELL DISTRIBUTION WIDTH 15.2 % (11.6-17.2); WHITE BLOOD COUNT 22.4 TH/MM3 (4.0-11.0)
[2018-01-07] MEDS: ATORVASTATIN 10 MG TAB PO SCH (21:00)
--- NOTE | 2018-01-07 21:03 | PD.CONS ---
Consult Service Palliative Care . Consult Requested By Dr. Mauricio Her . Primary Care Physician Trena Fernandez MD . Reason for Consultation a. To assist with evaluation and management of symptoms including: pain; confusion; dyspnea b. To assist medical decision maker(s) with: better understanding of current medical conditions; weighing benefits/burdens of medical treatment options; making medical treatment decisions. . HPI History of Present Illness Ms. Adan is a 77 y/o female with known history of COPD; hypertension; lung cancer (status post surgery, chemotherapy, radiation in 2004); abdominal aortic aneurysm (status post endovascular repair in October 2017); peripheral vascular disease (status post Left common femoral artery endarterectomy and with patch angioplasty and Right SFA endarterectomy and patch angioplasty in October 2017) who presented to the emergency department on 01/03/18 after suffering a fall at home. She was on her way to the restroom, collapsed, and family heard the fall. The patient denied hitting her head and denied loss of consciousness but she did suffer a small abrasion to her forehead. Paramedics arrived at the scene. When they tried to stand her up again she apparently became syncopal. Paramedics also noted hypertension and bradycardia while there. There were inferior ST elevations on her EKG noted in the field. Should herself was unable to provide much in the way of history. The patient underwent her abdominal aortic aneurysm repair and peripheral vascular repairs on 10/18/17. She was discharged from the hospital to [facility] for rehabilitation. Family reports that for the most part she refused to participate in rehabilitation and repeatedly asked to go home. During the 3 weeks at the rehab facility, she also frequently refused to bathe and often skipped meals. When arrangements were finally made to send her home, she was set up with home health including physical therapy and occupational therapy. Family says she essentially refused to participate in the home environment as well. Things were not working at home so on 12/15/17 family was able to overcome her objections and she moved to assisted living at [facility]. She has despised it there and has continued to insist that she could cope at home. Since her recent surgeries in October, she has become incontinent of bowel and bladder. Oxygen has been recommended for her but she has refused to use it. Vital signs in the emergency department on 01/03/18 showed the following: Temperature 97.6; pulse 40; respiratory rate 22; blood pressure 70/40; pulse oximetry 92% Initial examination by the emergency end finder twisting department noted the following:. Patient was pale, ill-appearing, and sluggishly responsive. She was bradycardic with diminished pulses. She was mildly tachypneic. There were no focal neurologic deficits. Initial diagnostic testing revealed the following: * CBC showed WBC 11.4; hemoglobin 10.9; platelet count 181 * Chemistry profile showed sodium 141; potassium 3.1; chloride 106; CO2 25.8; anion gap 9; BUN 8; creatinine 1.05; GFR 51; glucose 121; calcium 7.9; magnesium 1.7 * Liver function studies showed total bilirubin 0.3; AST 73; ALT 20; alkaline phosphatase 84; total protein 6.8; albumin 2.7 * Cardiac serology showed troponin X 0.9; * EKG showed a junctional escape rhythm with no clear P waves and there were inferior ST elevations with lateral reciprocal depressions concerning for an infarct. * CT of the head showed no acute intracranial abnormalities. There is sinus disease noted. There is atrophy noted. * Chest x-ray showed chronic changes at the right upper chest. No new or acute abnormalities noted. STEMI alert was called in the emergency department. Pressors were started with some improvement of the patient's blood pressure. Cardiology was consulted in the emergency department. The patient was taken to the [facility] but the catheterization was not performed as the patient had altered mental status. She was admitted to the ICU and critical care was consulted. She was placed on anticoagulation with heparin. Overnight she developed a left thigh hematoma. Heparin drip was started. Vascular surgery was consulted. The patient is required transfusion of 5 units of packed red blood cells since admission. A transvenous pacemaker has been placed. Troponin bumped up again overnight 01/05 through 01/06. The patient was taken to the [facility] today. The patient was found to have 99% subtotally occluded and heavily calcified right coronary artery. In addition the left anterior descending coronary has a calcified 75% stenosis in the midsegment. The lens gauger felt these would be difficult vessels for intervention. He wanted to have the patient evaluated for possible bypass surgery. The patient was supposed to go for evacuation of the left thigh hematoma. That is being postponed temporarily while options are being considered for managing the coronary artery disease. The patient's 2 sons are both in town. Given the patient's poor compliance and poor recovery post procedures in October, they have understandable concerns regarding going forward with more procedures. They requested a palliative care consultation to help think through these issues and facilitate decision making. . Function/Cognitive Trajectory Her 2 sons report that the patient has had a significant decline over the last 2 -3 years. Although she had been living alone and managing to do her own shopping and driving, it was clear that she could no longer sustain this. Dishes were piling up. Hygiene was failing. She was not eating properly. She apparently passed cognitive testing at her primary care doctor's office in October of this year. There is concern for depression. The patient's life was primarily limited to chain smoking on her porch and watching the weather channel on television. Her sons also report that while living at home she would consume 3-4 "stiff drinks" per day. They felt that some of her falls were secondary to alcohol use. . Review of Systems ROS Limitations: Clinical Condition (Patient is unable to provide her own review of systems. Information taken from the medical record and from available family members.) Constitutional: COMPLAINS OF: Fatigue, Weight loss, Change in appetite, Pain, Generalized weakness, DENIES: Fever, Weight gain Endocrine: DENIES: Polydipsia, Polyuria, Polyphagia Eyes: COMPLAINS OF: Blurred vision, Vision loss, DENIES: Diplopia Ears, nose, mouth, throat: COMPLAINS OF: Hearing loss (Refuses to wear her hearing aid), DENIES: Tinnitus, Throat pain, Hoarseness, Ear Pain, Epistaxis Respiratory: COMPLAINS OF: Shortness of breath, DENIES: Apneas, Cough, Snoring , Wheezing, Hemoptysis, Sputum production Cardiovascular: COMPLAINS OF: Syncope, Dyspnea on Exertion, DENIES: Chest pain , Palpitations Gastrointestinal: DENIES: Black stools, Bloody stools, Constipation, Diarrhea, Nausea, Vomiting, Dyspepsia or heartburn Genitourinary: COMPLAINS OF: Urinary incontinence, DENIES: Urinary frequency, Urgency, Hematuria Musculoskeletal: COMPLAINS OF: Muscle aches, Back pain, DENIES: Joint pain, Neck pain Integumentary: DENIES: Pruritus Hematologic/Lymphatics: COMPLAINS OF: Bruising Immunologic/Allergic: DENIES: Eczema Neurologic: COMPLAINS OF: Abnormal gait, Poor Balance, DENIES: Headache, Paresthesias, Seizures Psychiatric: COMPLAINS OF: Confusion, Depression Past Family Social History Coded Allergies: Sulfa (Sulfonamide Antibiotics) (Unverified Allergy, Mild, CAN'T REMEMBER REACTION, 10/18/17) bupropion (Verified Adverse Reaction, Severe, Rash, 10/18/17) vancomycin (Unverified Adverse Reaction, Mild, ITCHINESS, REDNESS, 10/18/17 ) IMMEDIATE RELIEF WITH BENADRYL Past Medical History COPD; hypertension; lung cancer (status post surgery, chemotherapy, radiation in 2004); abdominal aortic aneurysm (status post endovascular repair in October 2017); peripheral vascular disease (status post Left common femoral artery endarterectomy and with patch angioplasty and Right SFA endarterectomy and patch angioplasty in October 2017) Past Surgical History Tonsillectomy Bilateral cataract extraction Right upper and right middle lobectomies for cancer in 2008 Endovascular repair of abdominal aortic aneurysm October 2017 Bilateral vascular groin reconstruction October 2017 . Reported Medications Prehospital medications included the following: Percocet (Oxycodone-Acetaminophen) 5-325 mg Tab 1 Tab PO Q4H PRN Lipitor (Atorvastatin Calcium) 10 Mg Tab 10 Mg PO HS Aspirin DR (Aspirin) 81 Mg Tabdr 81 Mg PO DAILY Levothyroxine (Levothyroxine Sodium) 75 Mcg Tab 75 Mcg PO DAILY . Current Medications Medications (Trade) Dose Ordered Sig/Zahra Route Start Time Stop Time Status Last Admin (Ecotrin Ec) 81 mg DAILY PO 01/04/18 09:00 01/07/18 09:39 (Lipitor) 10 mg HS PO 01/04/18 21:00 01/04/18 21:04 (Synthroid) 75 mcg DAILY@0700 PO 01/04/18 07:00 01/06/18 06:34 (NS Flush) 2 ml UNSCH PRN IV FLUSH 01/03/18 22:15 (NS Flush) 2 ml BID IV FLUSH 01/04/18 09:00 01/07/18 09:00 (Zofran Inj) 4 mg Q6H PRN IV PUSH 01/03/18 22:15 (Restoril) 15 mg HS PRN PO 01/03/18 22:15 01/04/18 21:03 (Duoneb Neb) 1 ampule Q2HR NEB PRN INH 01/03/18 22:15 01/05/18 05:19 Miscellaneous Information 1 Q361D XX 01/03/18 22:15 01/03/18 22:15 (Chlorhexidine 2% Cloth) 3 pack Taper DAILY@04 TOP 01/04/18 04:00 12/31/18 03:59 01/07/18 04:00 (Chlorhexidine 2% Cloth) 3 pack UNSCH PRN TOP 01/03/18 22:15 (Kacy-Colace) 1 tab BID PO 01/04/18 09:00 01/07/18 09:39 (Milk Of Magnesia Liq) 30 ml Q12H PRN PO 01/03/18 22:15 (Senokot) 17.2 mg Q12H PRN PO 01/03/18 22:15 (Dulcolax Supp) 10 mg DAILY PRN RECTAL 01/03/18 22:15 (Lactulose Liq) 30 ml DAILY PRN PO 01/03/18 22:15 Miscellaneous Information Patient in critical care unit? Ass... Q361D .XX 01/03/18 22:30 01/03/18 23:49 (Chlorhexidine 2% Cloth) 3 pack DAILY@04 TOPICAL 01/04/18 04:00 01/08/18 04:01 (Chlorhexidine 2% Cloth) 3 pack UNSCH PRN TOPICAL 01/03/18 22:30 01/08/18 22:18 Potassium Chloride 100 ml @ 50 mls/hr Q2H PRN IV 01/03/18 22:45 Potassium Chloride 100 ml @ 50 mls/hr Q2H PRN IV 01/03/18 22:45 01/04/18 08:30 (K-Lyte Cl Eff) 50 meq UNSCH PRN PO 01/03/18 22:45 Potassium Chloride 100 ml @ 25 mls/hr UNSCH PRN IV 01/03/18 22:45 Potassium Chloride 100 ml @ 50 mls/hr Q2H PRN IV 01/03/18 22:45 Magnesium Sulfate 4 gm/Sodium Chloride 100 ml @ 50 mls/hr UNSCH PRN IV 01/03/18 22:45 (Mag-Ox) 800 mg UNSCH PRN PO 01/03/18 22:45 Magnesium Sulfate 2 gm/Sodium Chloride 100 ml @ 50 mls/hr UNSCH PRN IV 01/03/18 22:45 (K-Phos) 2,000 mg Q4H PRN PO 01/03/18 22:45 Sodium Phosphate 30 mmol/Sodium Chloride 250 ml @ 42 mls/hr UNSCH PRN IV 01/03/18 22:45 (K-Phos) 2,000 mg UNSCH PRN PO/TUBE 01/03/18 22:45 Potassium Phosphate 30 mmol/ Sodium Chloride 260 ml @ 42 mls/hr UNSCH PRN IV 01/03/18 22:45 Heparin Sodium/ Dextrose 250 ml @ 7.2 mls/hr TITRATE PRN IV 01/04/18 09:00 01/06/18 15:17 Dopamine HCl/ Dextrose 250 ml @ 6.728 mls/ hr TITRATE PRN IV 01/04/18 20:00 (Brethine Inj) 1 mg UNSCH PRN SQ 01/04/18 20:00 (Lasix Inj) 40 mg DAILY IV PUSH 01/05/18 09:00 01/07/18 09:39 Dextrose/Sodium Chloride 1,000 ml @ 42 mls/hr [id number] IV 01/05/18 14:30 01/07/18 18:42 (Pepcid) 10 mg BID PO 01/05/18 21:00 01/06/18 08:32 (Atropine Inj) 0.5 mg UNSCH PRN IV PUSH 01/07/18 13:15 Sodium Chloride 250 ml @ 500 mls/hr ONCE PRN IV 01/07/18 13:15 01/08/18 13:14 (Xylocaine 1% Inj (50 ml)) 10 ml UNSCH PRN INFIL 01/07/18 13:15 01/08/18 13:14 (Percocet 5-325 Mg) 1 tab Q6H PRN PO 01/07/18 14:00 (Tylenol) 650 mg Q6H PRN PO 01/07/18 14:00 . Family History The patient's mother in her 90s of an unknown type of cancer. The patient's father of gangrene following an abdominal aortic aneurysm repair. Diabetes and hypertension runs in the family. . Substance Use Tobacco: Patient has been a chain smoker most of her adult life. Alcohol: Patient normally consumes 3-4 "stiff" alcoholic drinks per day. Her sons refer to her as alcoholic. Prescription med abuse: No known abuse Illicits: No known use of illicits . Psychosocial History The patient is originally from [place], [place]. She has lived in [place] since 2000. The patient has a high school education. 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 The patient was one time. Her in 2008. The patient has 4 children. Her sons, Kevin, Donald, and Jesse live in [place], [place], and [place] respectively. Daughter, Chloé, lives in the [facility] area. . Spiritual/Cultural Factors The patient is Jehovah'S Witness. A medical art therapist has already visited her here in the hospital. . Living Will: Copy in medical record Health Care Surrogate: Copy in medical record Durable Power of Special Education Paraprofessional: Never completed Date completed: The living will and designation of healthcare surrogate were completed on 2008 . Health Care Surrogate(s): The patient has designated her sons-- Kevin Adan as primary HCS Donald Adan as secondary HCS Documented care wishes: The patient's living will indicates she would not want life prolonging measure should she be found to have a terminal illness, end-stage condition, or persistent vegetative state. . . Today's verbally stated goals: The patient is confused and unable to verbalize her own healthcare goals/ preferences. . Family/friends goals: The patient's 2 sons are very concerned that even with procedural intervention on her coronary arteries she will be noncompliant, not participate with rehab become bedbound and decline anyway. They are reluctant to put her through more procedures if the outcome will ultimately be the same. . Ethical and Legal Issues Patient is now intermittently confused. Any decision making should involve her healthcare surrogate until she clears. . Physical Exam Vital Signs Date Time Temp Pulse Resp B/P (MAP) Pulse Ox O2 Delivery O2 Flow Rate FiO2 01/07/18 18:00 73 01/07/18 16:00 98.0 53 24 100/51 (67) 88 01/07/18 16:00 53 01/07/18 16:00 53 22 100/51 (67) 87 01/07/18 15:30 51 23 119/59 (79) 88 01/07/18 15:00 60 20 114/57 (76) 89 01/07/18 14:30 60 22 97/60 (72) 90 4/2/18 14:00 98.3 65 20 133/61 (85) 97 01/07/18 14:00 65 01/07/18 12:00 98.0 84 22 117/61 (79) 94 01/07/18 12:00 84 01/07/18 10:00 73 01/07/18 08:00 98.2 75 26 151/78 (102) 90 01/07/18 08:00 83 01/07/18 06:00 75 01/07/18 04:00 98.4 74 23 143/69 (93) 91 01/07/18 04:00 74 01/07/18 02:00 78 01/07/18 00:00 98.0 78 20 174/71 (105) 98 01/07/18 00:00 78 01/06/18 22:00 74 01/06/18 21:05 98.3 80 17 151/67 100 01/06/18 20:00 76 01/06/18 20:00 98.1 76 18 128/64 (85) 100 . Exam CONSTITUTIONAL/GENERAL: This is a pale, ill-appearing female. She mutters unintelligible words. TUBES/LINES/DRAINS: Peripheral IVs; right jugular transvenous pacing line nasal cannula oxygen; Victoria catheter SKIN: No jaundice, rashes. large hematoma on left thigh. Ecchymoses on upper extremities. All extremities are cool and slightly dusky. HEAD: Atraumatic. Normocephalic. EYES: Pupils equal and round and reactive. Extraocular motions intact. No scleral icterus. No injection or drainage. Fundi not examined. ENT: Unable to evaluate No palpable thyroid enlargement or nodularity. CARDIOVASCULAR: Irregular rhythm without murmurs, gallops, or rubs. No JVD. Peripheral pulses weaker in left ankle/foot. RESPIRATORY/CHEST: Symmetric, unlabored respirations. Breath sounds diminished bilaterally.. No wheezes, rales, or rhonchi. GASTROINTESTINAL: Abdomen soft, non-tender, nondistended. No hepato-splenomegaly , or palpable masses. No guarding. Bowel sounds present. GENITOURINARY: Without palpable bladder distension. Victoria catheter in place. MUSCULOSKELETAL: Patient has the hematoma on the left thigh with compression bandage in place. There is some blistering. Hands and feet are cool to the touch. Feet are slightly dusky. LYMPHATICS: No palpable cervical or supraclavicular adenopathy. NEUROLOGICAL: Awake but confused. Unable to follow commands. Moves all extremities. PSYCHIATRIC: Unable to assess. . Diagnostic Tests Laboratory Laboratory Tests Test 01/04/18 21:40 01/05/18 00:15 01/05/18 04:45 01/05/18 11:00 Activated Partial Thromboplast Time 112.7 SEC (24.3-30.1) 52.5 SEC (24.3-30.1) 47.7 SEC (24.3-30.1) White Blood Count 22.8 TH/MM3 (4.0-11.0) Red Blood Count 2.78 MIL/MM3 (4.00-5.30) Hemoglobin 7.7 GM/DL (11.6-15.3) 8.7 GM/DL (11.6-15.3) Hematocrit 23.4 % (35.0-46.0) 25.7 % (35.0-46.0) Mean Corpuscular Volume 84.0 FL (80.0-100.0) Mean Corpuscular Hemoglobin 27.8 PG (27.0-34.0) Mean Corpuscular Hemoglobin Concent 33.1 % (32.0-36.0) Red Cell Distribution Width 16.9 % (11.6-17.2) Platelet Count 173 TH/MM3 (150-450) Mean Platelet Volume 8.3 FL (7.0-11.0) Neutrophils (%) (Auto) 85.7 % (16.0-70.0) Lymphocytes (%) (Auto) 7.1 % (9.0-44.0) Monocytes (%) (Auto) 6.7 % (0.0-8.0) Eosinophils (%) (Auto) 0.1 % (0.0-4.0) Basophils (%) (Auto) 0.4 % (0.0-2.0) Neutrophils # (Auto) 19.6 TH/MM3 (1.8-7.7) Lymphocytes # (Auto) 1.6 TH/MM3 (1.0-4.8) Monocytes # (Auto) 1.5 TH/MM3 (0-0.9) Eosinophils # (Auto) 0.0 TH/MM3 (0-0.4) Basophils # (Auto) 0.1 TH/MM3 (0-0.2) CBC Comment DIFF FINAL Differential Comment Blood Urea Nitrogen 18 MG/DL (7-18) Creatinine 1.53 MG/DL (0.50-1.00) Random Glucose 158 MG/DL (74-106) Total Protein 5.1 GM/DL (6.4-8.2) Albumin 2.2 GM/DL (3.4-5.0) Calcium Level 8.0 MG/DL (8.5-10.1) Alkaline Phosphatase 53 U/L (45-117) Aspartate Amino Transf (AST/SGOT) 186 U/L (15-37) Alanine Aminotransferase (ALT/SGPT) 22 U/L (10-53) Total Bilirubin 0.6 MG/DL (0.2-1.0) Sodium Level 144 MEQ/L (136-145) Potassium Level 4.6 MEQ/L (3.5-5.1) Chloride Level 114 MEQ/L (98-107) Carbon Dioxide Level 20.9 MEQ/L (21.0-32.0) Anion Gap 9 MEQ/L (5-15) Estimat Glomerular Filtration Rate 33 ML/MIN (>89) Test 01/05/18 17:15 01/06/18 05:40 01/06/18 14:30 01/06/18 17:45 White Blood Count 26.4 TH/MM3 (4.0-11.0) 20.8 TH/MM3 (4.0-11.0) 18.6 TH/MM3 (4.0-11.0) 14.9 TH/MM3 (4.0-11.0) Red Blood Count 2.73 MIL/MM3 (4.00-5.30) 2.11 MIL/MM3 (4.00-5.30) 3.06 MIL/MM3 (4.00-5.30) 2.58 MIL/MM3 (4.00-5.30) Hemoglobin 7.8 GM/DL (11.6-15.3) 6.1 GM/DL (11.6-15.3) 9.4 GM/DL (11.6-15.3) 7.8 GM/DL (11.6-15.3) Hematocrit 23.1 % (35.0-46.0) 17.8 % (35.0-46.0) 26.9 % (35.0-46.0) 22.8 % (35.0-46.0) Mean Corpuscular Volume 84.5 FL (80.0-100.0) 84.7 FL (80.0-100.0) 87.9 FL (80.0-100.0) 88.1 FL (80.0-100.0) Mean Corpuscular Hemoglobin 28.6 PG (27.0-34.0) 28.8 PG (27.0-34.0) 30.6 PG (27.0-34.0) 30.4 PG (27.0-34.0) Mean Corpuscular Hemoglobin Concent 33.8 % (32.0-36.0) 34.0 % (32.0-36.0) 34.8 % (32.0-36.0) 34.4 % (32.0-36.0) Red Cell Distribution Width 16.0 % (11.6-17.2) 16.5 % (11.6-17.2) 16.2 % (11.6-17.2) 15.7 % (11.6-17.2) Platelet Count 141 TH/MM3 (150-450) 110 TH/MM3 (150-450) 89 TH/MM3 (150-450) 74 TH/MM3 (150-450) Mean Platelet Volume 8.1 FL (7.0-11.0) 8.2 FL (7.0-11.0) 8.3 FL (7.0-11.0) 8.6 FL (7.0-11.0) Neutrophils (%) (Auto) 82.4 % (16.0-70.0) 81.9 % (16.0-70.0) 84.5 % (16.0-70.0) 83.1 % (16.0-70.0) Lymphocytes (%) (Auto) 8.1 % (9.0-44.0) 6.9 % (9.0-44.0) 5.4 % (9.0-44.0) 5.5 % (9.0-44.0) Monocytes (%) (Auto) 9.3 % (0.0-8.0) 10.4 % (0.0-8.0) 8.8 % (0.0-8.0) 10.5 % (0.0-8.0) Eosinophils (%) (Auto) 0.1 % (0.0-4.0) 0.4 % (0.0-4.0) 0.6 % (0.0-4.0) 0.5 % (0.0-4.0) Basophils (%) (Auto) 0.1 % (0.0-2.0) 0.4 % (0.0-2.0) 0.7 % (0.0-2.0) 0.4 % (0.0-2.0) Neutrophils # (Auto) 21.7 TH/MM3 (1.8-7.7) 17.0 TH/MM3 (1.8-7.7) 15.7 TH/MM3 (1.8-7.7) 12.4 TH/MM3 (1.8-7.7) Lymphocytes # (Auto) 2.1 TH/MM3 (1.0-4.8) 1.4 TH/MM3 (1.0-4.8) 1.0 TH/MM3 (1.0-4.8) 0.8 TH/MM3 (1.0-4.8) Monocytes # (Auto) 2.5 TH/MM3 (0-0.9) 2.2 TH/MM3 (0-0.9) 1.6 TH/MM3 (0-0.9) 1.6 TH/MM3 (0-0.9) Eosinophils # (Auto) 0.0 TH/MM3 (0-0.4) 0.1 TH/MM3 (0-0.4) 0.1 TH/MM3 (0-0.4) 0.1 TH/MM3 (0-0.4) Basophils # (Auto) 0.0 TH/MM3 (0-0.2) 0.1 TH/MM3 (0-0.2) 0.1 TH/MM3 (0-0.2) 0.1 TH/MM3 (0-0.2) CBC Comment AUTO DIFF AUTO DIFF DIFF FINAL AUTO DIFF Differential Comment AUTO DIFF CONFIRMED FINAL DIFF MANUAL AUTO DIFF CONFIRMED Platelet Estimate NORMAL (NORMAL) LOW (NORMAL) LOW (NORMAL) Platelet Morphology Comment NORMAL (NORMAL) NORMAL (NORMAL) NORMAL (NORMAL) Red Cell Morphology Comment NORMAL (NORMAL) NORMAL (NORMAL) Activated Partial Thromboplast Time 43.6 SEC (24.3-30.1) Differential Total Cells Counted 100 Neutrophils % (Manual) 89 % (16-70) Band Neutrophils % 1 % (0-6) Lymphocytes % 1 % (9-44) Monocytes % 8 % (0-8) Eosinophils % 1 % (0-4) Neutrophils # (Manual) 18.7 TH/MM3 (1.8-7.7) Blood Urea Nitrogen 26 MG/DL (7-18) Creatinine 1.64 MG/DL (0.50-1.00) Random Glucose 122 MG/DL (74-106) Total Protein 4.8 GM/DL (6.4-8.2) Albumin 2.1 GM/DL (3.4-5.0) Calcium Level 7.8 MG/DL (8.5-10.1) Alkaline Phosphatase 55 U/L (45-117) Aspartate Amino Transf (AST/SGOT) 60 U/L (15-37) Alanine Aminotransferase (ALT/SGPT) 17 U/L (10-53) Total Bilirubin 0.5 MG/DL (0.2-1.0) Sodium Level 141 MEQ/L (136-145) Potassium Level 4.0 MEQ/L (3.5-5.1) Chloride Level 111 MEQ/L (98-107) Carbon Dioxide Level 22.3 MEQ/L (21.0-32.0) Anion Gap 8 MEQ/L (5-15) Estimat Glomerular Filtration Rate 30 ML/MIN (>89) Troponin I 27.90 NG/ML (0.02-0.05) B-Type Natriuretic Peptide 318 PG/ML (0-100) Test 01/07/18 06:44 01/07/18 19:17 White Blood Count 17.5 TH/MM3 (4.0-11.0) Red Blood Count 3.24 MIL/MM3 (4.00-5.30) Hemoglobin 10.0 GM/DL (11.6-15.3) Hematocrit 28.3 % (35.0-46.0) Mean Corpuscular Volume 87.1 FL (80.0-100.0) Mean Corpuscular Hemoglobin 30.8 PG (27.0-34.0) Mean Corpuscular Hemoglobin Concent 35.4 % (32.0-36.0) Red Cell Distribution Width 14.8 % (11.6-17.2) Platelet Count 75 TH/MM3 (150-450) Mean Platelet Volume 8.5 FL (7.0-11.0) Neutrophils (%) (Auto) 84.2 % (16.0-70.0) Lymphocytes (%) (Auto) 5.4 % (9.0-44.0) Monocytes (%) (Auto) 9.6 % (0.0-8.0) Eosinophils (%) (Auto) 0.5 % (0.0-4.0) Basophils (%) (Auto) 0.3 % (0.0-2.0) Neutrophils # (Auto) 14.8 TH/MM3 (1.8-7.7) Lymphocytes # (Auto) 0.9 TH/MM3 (1.0-4.8) Monocytes # (Auto) 1.7 TH/MM3 (0-0.9) Eosinophils # (Auto) 0.1 TH/MM3 (0-0.4) Basophils # (Auto) 0.1 TH/MM3 (0-0.2) CBC Comment AUTO DIFF Differential Comment AUTO DIFF CONFIRMED Platelet Estimate LOW (NORMAL) Platelet Morphology Comment NORMAL (NORMAL) Activated Partial Thromboplast Time 31.3 SEC (24.3-30.1) Blood Urea Nitrogen 23 MG/DL (7-18) Creatinine 1.06 MG/DL (0.50-1.00) Random Glucose 98 MG/DL (74-106) Total Protein 5.2 GM/DL (6.4-8.2) Albumin 2.2 GM/DL (3.4-5.0) Calcium Level 8.2 MG/DL (8.5-10.1) Alkaline Phosphatase 63 U/L (45-117) Aspartate Amino Transf (AST/SGOT) 38 U/L (15-37) Alanine Aminotransferase (ALT/SGPT) 15 U/L (10-53) Total Bilirubin 1.2 MG/DL (0.2-1.0) Sodium Level 144 MEQ/L (136-145) Potassium Level 3.8 MEQ/L (3.5-5.1) Chloride Level 111 MEQ/L (98-107) Carbon Dioxide Level 24.3 MEQ/L (21.0-32.0) Anion Gap 9 MEQ/L (5-15) Estimat Glomerular Filtration Rate 50 ML/MIN (>89) Lab Scanned Report Lab Reports - Other [id number] . Result Diagram: 01/07/1864301/07/18643 Imaging Last Impressions Chest X-Ray 01/06/18 0600 Signed Impressions: Service Date/Time: Saturday, January 06, 2018 03:01 - CONCLUSION: 1. No acute infiltrate. Postop changes on the right. Jose Lake MD Lower Extremity CT 01/04/18 0000 Signed Impressions: Service Date/Time: Thursday, January 04, 2018 05:18 - CONCLUSION: Large hematoma laterally of the left thigh as above. Intact femur. Kevin Shabazz MD Head CT 01/03/18 0000 Signed Impressions: Service Date/Time: December 20:11 - CONCLUSION: 1. No acute intracranial abnormality seen. 2. Atrophy. 3. Left maxillary and sphenoid sinus disease. Kevin Blevins MD . Procedures Cardiac catheterization Transvenous pacemaker placement . Patient/Family Conference Present at Family Conference: Dwaine Saez (HCS and alternate) . Family Conference Time (mins): 55 Family Conference Location: Consult Room Issues Discussed: * Palliative care role, purpose, approach * Additional medical, psychosocial, and spiritual history * Patients general health, functional status, and cognitive changes in the months leading up to the current hospitalization * Family understanding of the current medical problems * Family understanding of prognosis * Patients goals of care as best understood from advance directives and/or conversations and/or values * Current medical treatment options and benefits/burdens of those options * Likely scenarios comparing ongoing aggressive care with a transition to comfort measures only * Questions answered to the best of my ability * Palliative care contact information provided . Assessment and Plan Disease Oriented Problem List: (1) ST elevation myocardial infarction (STEMI) of inferior wall (2) COPD (chronic obstructive pulmonary disease) (3) Hematoma (4) History of alcohol abuse (5) PAD (peripheral artery disease) (6) Hypothyroidism (7) Depression (8) History of lung cancer Symptom Scale: (1) Pain 0-10 Scale: Unable to quantify (2) Dyspnea 0-10 Scale: Unable to quantify (3) Confusion 0-10 Scale: Unable to quantify Pertinent Non-Medical Issues Psychosocial: Had been living alone but failing prior to her vascular procedures in October 2017. No local psychosocial support. Sons have been down visiting. Spiritual: Patient is Jehovah'S Witness. The [employer] Faculty Member is already visited her in the hospital. Legal: Advanced directives are in place. Ethical issues impacting care: Patient is intermittently confused. Until she clears, healthcare decision making should be done jointly with her designated surrogate. . Important Contacts * Kevin Reedneena as primary [facility] [phone] * Donaldjacinto Adan as secondary [facility] [phone] . Prognosis As her 2 sons describe her lack of compliance and her attitude as well as her decline over the last 2 years, I remain worried that whether she has her coronary arteries addressed or not she will remain mostly bedbound and therefore decline. She has been angry that she had her prior procedures done, angry that she can go home, angry that she is unable to smoke etc. Per her sons , her chances of participating in rehabilitation following any additional procedure are almost nil. If there is a decision not to pursue any intervention of the coronary arteries, patient would be eligible for hospice services if she primarily wanted "comfort measures only." . Code Status: No Code Plan == Code Status: NO CODE == Health care decision making: Patient is intermittently confused. Until she clears, any healthcare decision making should be made along with her designated healthcare surrogate-- Kevin Adan. == Goals of medical treatment: At the time of my visit, the patient is confused and able to verbalize her own goals. Because of the patient's recent noncompliance and unwillingness to help herself, sons are quite concerned that further procedures are not going to serve her well. They would like to speak further with the surgeons. == Symptoms * Pain: Patient had no reported underlying pain syndromes. She injured her left thigh when she fell at home. She now has a painful large hematoma in this area. She currently has orders for acetaminophen and Percocet if necessary. It will be challenging to address the pain without exacerbating delirium. No further recommendations at this time. * Dyspnea: Patient has known underlying COPD and has been a chain smoker for years. Appears to be obtaining adequate oxygenation on nasal cannula O2. There has been intermittent need for a nonrebreather mask. * Confusion: This is probably a multifactorial delirium. Illness, medications, and multiple changes in environment probably all contributed. Continue to address underlying metabolic and vascular issues. No further recommendations at this time. == The patient's sons want to speak to surgeons and discuss their concerns regarding the patient's overall rehab potential before going forward with any major procedures. Sons do not believe she will cooperate with recommendations post surgery or participate in rehabilitation. I have discussed this via phone with Dr. Pittman. == Should there be a decision not to go forward with interventions to address her two-vessel coronary artery disease and the patient desires just comfort measures, hospice would be appropriate. == Palliative care will continue to follow to assist with symptom management and to further clarify goals of medical treatment as the clinical course evolves. . Time Spent Total Floor Time (mins): 90 (Total floor time included chart review, patient examination, collaboration with primary nurse, above-noted conference with both sons, telephone conversation with , and documentation.) Face to Face Time (mins): 10 >50% Counseling/Coord of Care: Yes Thank you for the opportunity to participate in the care of Ms. Adan. . Attestation To help prompt me to consider important information that might be impacting today's encounter and assessment, information from prior notes written by myself or my colleagues may have been "brought forward" into today's note. My signature on this note, however, is an attestation that I personally performed the exam, history, and/or decision-making noted today, and, unless otherwise indicated, the interactions with patient, family, and staff as well as the review of records all occurred today. I also attest that the listed assessment and stated plan reflect my best clinical judgment today based on the combination of historical information, prior notes, and today's exam/ interactions. When time spent is documented, it refers only to time spent today by the signer, or if indicated, combined time spent today by collaborating physician/nurse practitioner. . Mauri Vázquez MD Jan 07, 2018 20:49
[2018-01-07 21:40] LABS: BANDS 5 % (0-6); CORRECTED NUCLEATED RBC 2 /100 WBC (0-0); LYMPHOCYTES 2 % (9-44); METAMYELOCYTES 1 % (0-1); MONOCYTES 9 % (0-8); MYELOCYTES 1 % (0-0); NEUTROPHIL # MANUAL DIFF 19.9 TH/MM3 (1.8-7.7); NUCLEATED RED BLOOD CELL 2 (0-0); POLYS (SEG NEUTROPHILS) 82 % (16-70)
[2018-01-08] VITALS (13 sets, daily range): BP systolic 80–183; BP diastolic 48–86; PULSE 48–111; RESP 16–28; TEMP 98–98.7; O2SAT 91–100
[2018-01-08] MEDS: CHLORHEXIDINE GLUCONATE 2 % 1 PACK (2 CLOTHS) TOP SCH (02:02)
[2018-01-08] MEDS: CHLORHEXIDINE GLUCONATE 2 % 1 PACK (2 CLOTHS)(taper/protocol) TOPICAL SCH (02:02)
[2018-01-08 06:17] LABS: AUTOMATED NEUTROPHIL # 9.1 TH/MM3 (1.8-7.7); BASOPHIL % 0.4 % (0.0-2.0); EOSINOPHIL % 0.4 % (0.0-4.0); HEMATOCRIT 22.5 % (35.0-46.0); HEMOGLOBIN 7.9 GM/DL (11.6-15.3); LYMPHOCYTE # 0.9 TH/MM3 (1.0-4.8); MEAN CELL VOLUME 88.3 FL (80.0-100.0); MEAN CORPUSCULAR HEMOGLOBIN 31.2 PG (27.0-34.0); MEAN CORPUSCULAR HGB CONC 35.3 % (32.0-36.0); MEAN PLATELET VOLUME 8.4 FL (7.0-11.0); MONO % 8.6 % (0.0-8.0); NEUT % 82.6 % (16.0-70.0); PLATELET COUNT 70 TH/MM3 (150-450); RED BLOOD COUNT 2.55 MIL/MM3 (4.00-5.30); RED CELL DISTRIBUTION WIDTH 15.8 % (11.6-17.2); WHITE BLOOD COUNT 11.1 TH/MM3 (4.0-11.0)
[2018-01-08] MEDS: LEVOTHYROXINE SODIUM 75 MCG TAB PO SCH (06:56)
[2018-01-08 07:02] LABS: ALBUMIN 2.1 GM/DL (3.4-5.0); ALKALINE PHOSPHATASE 64 U/L (45-117); ALT (GPT) 15 U/L (10-53); AST (GOT) 63 U/L (15-37); BICARBONATE 24.7 MEQ/L (21.0-32.0); BLOOD UREA NITROGEN 27 MG/DL (7-18); CHLORIDE 109 MEQ/L (98-107); CREATININE 1.16 MG/DL (0.50-1.00); GLOMERULAR FILTRATION RATE 45 ML/MIN (>89); GLUCOSE,RANDOM 137 MG/DL (74-106); SODIUM (NA) 144 MEQ/L (136-145); TOTAL BILIRUBIN ADULT 0.9 MG/DL (0.2-1.0); TOTAL PROTEIN 5.4 GM/DL (6.4-8.2)
--- NOTE | 2018-01-08 07:55 | PD.CARD.PN ---
Subjective Subjective Remarks alert but confused. denies chest pain or sob. (Freda Moncada) Objective Medications Current Medications Medications (Trade) Dose Ordered Sig/Zahra Route Start Time Stop Time Status Last Admin (Ecotrin Ec) 81 mg DAILY PO 01/04/18 09:00 01/07/18 09:39 (Lipitor) 10 mg HS PO 01/04/18 21:00 01/04/18 21:04 (Synthroid) 75 mcg DAILY@0700 PO 01/04/18 07:00 01/06/18 06:34 (NS Flush) 2 ml UNSCH PRN IV FLUSH 01/03/18 22:15 (NS Flush) 2 ml BID IV FLUSH 01/04/18 09:00 01/07/18 21:00 (Zofran Inj) 4 mg Q6H PRN IV PUSH 01/03/18 22:15 (Restoril) 15 mg HS PRN PO 01/03/18 22:15 01/04/18 21:03 (Duoneb Neb) 1 ampule Q2HR NEB PRN INH 01/03/18 22:15 01/05/18 05:19 Miscellaneous Information 1 Q361D XX 01/03/18 22:15 01/03/18 22:15 (Chlorhexidine 2% Cloth) 3 pack Taper DAILY@04 TOP 01/04/18 04:00 12/31/18 03:59 01/08/18 02:02 (Chlorhexidine 2% Cloth) 3 pack UNSCH PRN TOP 01/03/18 22:15 (Kacy-Colace) 1 tab BID PO 01/04/18 09:00 01/07/18 09:39 (Milk Of Magnesia Liq) 30 ml Q12H PRN PO 01/03/18 22:15 (Senokot) 17.2 mg Q12H PRN PO 01/03/18 22:15 (Dulcolax Supp) 10 mg DAILY PRN RECTAL 01/03/18 22:15 (Lactulose Liq) 30 ml DAILY PRN PO 01/03/18 22:15 Miscellaneous Information Patient in critical care unit? Ass... Q361D .XX 01/03/18 22:30 01/03/18 23:49 (Chlorhexidine 2% Cloth) 3 pack UNSCH PRN TOPICAL 01/03/18 22:30 4/3/18 22:18 Potassium Chloride 100 ml @ 50 mls/hr Q2H PRN IV 01/03/18 22:45 Potassium Chloride 100 ml @ 50 mls/hr Q2H PRN IV 01/03/18 22:45 01/04/18 08:30 (K-Lyte Cl Eff) 50 meq UNSCH PRN PO 01/03/18 22:45 Potassium Chloride 100 ml @ 25 mls/hr UNSCH PRN IV 01/03/18 22:45 Potassium Chloride 100 ml @ 50 mls/hr Q2H PRN IV 01/03/18 22:45 Magnesium Sulfate 4 gm/Sodium Chloride 100 ml @ 50 mls/hr UNSCH PRN IV 01/03/18 22:45 (Mag-Ox) 800 mg UNSCH PRN PO 01/03/18 22:45 Magnesium Sulfate 2 gm/Sodium Chloride 100 ml @ 50 mls/hr UNSCH PRN IV 01/03/18 22:45 (K-Phos) 2,000 mg Q4H PRN PO 01/03/18 22:45 Sodium Phosphate 30 mmol/Sodium Chloride 250 ml @ 42 mls/hr UNSCH PRN IV 01/03/18 22:45 (K-Phos) 2,000 mg UNSCH PRN PO/TUBE 01/03/18 22:45 Potassium Phosphate 30 mmol/ Sodium Chloride 260 ml @ 42 mls/hr UNSCH PRN IV 01/03/18 22:45 Heparin Sodium/ Dextrose 250 ml @ 7.2 mls/hr TITRATE PRN IV 01/04/18 09:00 01/06/18 15:17 Dopamine HCl/ Dextrose 250 ml @ 6.728 mls/ hr TITRATE PRN IV 01/04/18 20:00 (Brethine Inj) 1 mg UNSCH PRN SQ 01/04/18 20:00 (Lasix Inj) 40 mg DAILY IV PUSH 01/05/18 09:00 01/07/18 09:39 Dextrose/Sodium Chloride 1,000 ml @ 42 mls/hr [id number] IV 01/05/18 14:30 01/07/18 18:42 (Pepcid) 10 mg BID PO 01/05/18 21:00 01/06/18 08:32 (Atropine Inj) 0.5 mg UNSCH PRN IV PUSH 01/07/18 13:15 Sodium Chloride 250 ml @ 500 mls/hr ONCE PRN IV 01/07/18 13:15 01/08/18 13:14 (Xylocaine 1% Inj (50 ml)) 10 ml UNSCH PRN INFIL 01/07/18 13:15 01/08/18 13:14 (Percocet 5-325 Mg) 1 tab Q6H PRN PO 01/07/18 14:00 (Tylenol) 650 mg Q6H PRN PO 01/07/18 14:00 Vital Signs / I&O Vital Signs Date Time Temp Pulse Resp B/P (MAP) Pulse Ox O2 Delivery O2 Flow Rate FiO2 01/08/18 04:00 98.0 56 18 104/50 (68) 99 01/08/18 02:30 63 19 140/86 (104) 98 01/08/18 02:00 86 19 151/62 (91) 98 01/08/18 01:31 58 17 122/57 (78) 100 01/08/18 00:00 98.2 111 19 183/84 (117) 100 01/07/18 23:00 95 23 133/65 (87) 94 01/07/18 22:45 99 27 145/81 (102) 99 01/07/18 22:30 94 19 139/76 (97) 99 01/07/18 22:15 98 20 155/83 (107) 96 01/07/18 22:00 95 16 154/79 (104) 100 01/07/18 21:45 100 20 154/75 (101) 100 01/07/18 21:31 102 26 179/109 (132) 01/07/18 21:16 95 16 160/102 (121) 100 01/07/18 21:01 95 17 162/78 (106) 85 01/07/18 20:45 98 20 161/75 (103) 98 01/07/18 20:30 100 20 157/74 (101) 100 01/07/18 20:15 100 20 152/81 (104) 100 01/07/18 20:00 98.3 103 19 149/78 (101) 100 01/07/18 18:00 73 01/07/18 16:00 98.0 53 24 100/51 (67) 88 01/07/18 16:00 53 01/07/18 16:00 53 22 100/51 (67) 87 01/07/18 15:30 51 23 119/59 (79) 88 01/07/18 15:00 60 20 114/57 (76) 89 01/07/18 14:30 60 22 97/60 (72) 90 01/07/18 14:00 98.3 65 20 133/61 (85) 97 01/07/18 14:00 65 01/07/18 12:00 98.0 84 22 117/61 (79) 94 01/07/18 12:00 84 01/07/18 10:00 73 01/07/18 08:00 98.2 75 26 151/78 (102) 90 01/07/18 08:00 83 I/O 01/07/18 01/07/18 01/07/18 01/08/18 01/08/18 01/08/18 07:00 15:00 23:00 07:00 15:00 23:00 Intake Total 0 ml 828 ml Output Total 500 ml 1000 ml Balance -500 ml -172 ml Intake Oral 0 ml IV Total 224 ml Tube Feeding 604 ml Output Urine Total 500 ml 1000 ml # Bowel Movements 0 1 Physical Exam GENERAL: SKIN: Warm and dry. HEAD: Atraumatic. Normocephalic. EYES: Pupils equal and round. No scleral icterus ENT: No nasal bleeding or discharge. NECK: Trachea midline. No JVD. CARDIOVASCULAR: Regular rate and rhythm. no murmurs RESPIRATORY: No accessory muscle use. Clear to auscultation. Breath sounds equal bilaterally. GASTROINTESTINAL: Abdomen soft, non-tender, nondistended. Hepatic and splenic margins not palpable. MUSCULOSKELETAL: Extremities without clubbing, cyanosis, or edema. upper L thigh hematoma NEUROLOGICAL: Awake and alert. No obvious cranial nerve deficits. Normal speech. PSYCHIATRIC: pleasantly confused. oriented to date only. Laboratory Laboratory Tests Test 01/07/18 18:41 01/07/18 19:17 01/08/18 01:46 01/08/18 05:35 White Blood Count 22.4 TH/MM3 11.1 TH/MM3 Red Blood Count 2.86 MIL/MM3 2.55 MIL/MM3 Hemoglobin 8.6 GM/DL 7.9 GM/DL Hematocrit 25.3 % 22.5 % Mean Corpuscular Volume 88.5 FL 88.3 FL Mean Corpuscular Hemoglobin 30.0 PG 31.2 PG Mean Corpuscular Hemoglobin Concent 34.0 % 35.3 % Red Cell Distribution Width 15.2 % 15.8 % Platelet Count 83 TH/MM3 70 TH/MM3 Mean Platelet Volume 8.7 FL 8.4 FL Neutrophils (%) (Auto) 84.6 % 82.6 % Lymphocytes (%) (Auto) 6.0 % 8.0 % Monocytes (%) (Auto) 9.0 % 8.6 % Eosinophils (%) (Auto) 0.2 % 0.4 % Basophils (%) (Auto) 0.2 % 0.4 % Neutrophils # (Auto) 19.0 TH/MM3 9.1 TH/MM3 Lymphocytes # (Auto) 1.4 TH/MM3 0.9 TH/MM3 Monocytes # (Auto) 2.0 TH/MM3 1.0 TH/MM3 Eosinophils # (Auto) 0.0 TH/MM3 0.0 TH/MM3 Basophils # (Auto) 0.0 TH/MM3 0.0 TH/MM3 CBC Comment AUTO DIFF AUTO DIFF Differential Total Cells Counted 100 Neutrophils % (Manual) 82 % Band Neutrophils % 5 % Lymphocytes % 2 % Monocytes % 9 % Neutrophils # (Manual) 19.9 TH/MM3 Metamyelocytes 1 % Myelocytes 1 % Nucleated Red Blood Cells 2 /100 WBC Differential Comment FINAL DIFF MANUAL Platelet Estimate LOW Platelet Morphology Comment NORMAL Activated Partial Thromboplast Time 40.1 SEC 42.9 SEC 42.0 SEC Lab Scanned Report Lab Reports - Other [id number] Blood Urea Nitrogen 27 MG/DL Creatinine 1.16 MG/DL Random Glucose 137 MG/DL Total Protein 5.4 GM/DL Albumin 2.1 GM/DL Calcium Level 8.0 MG/DL Alkaline Phosphatase 64 U/L Aspartate Amino Transf (AST/SGOT) 63 U/L Alanine Aminotransferase (ALT/SGPT) 15 U/L Total Bilirubin 0.9 MG/DL Sodium Level 144 MEQ/L Potassium Level 3.3 MEQ/L Chloride Level 109 MEQ/L Carbon Dioxide Level 24.7 MEQ/L Anion Gap 10 MEQ/L Estimat Glomerular Filtration Rate 45 ML/MIN (Freda Moncada) Assessment and Plan Problem List: (1) ST elevation myocardial infarction (STEMI) of inferior wall ICD Codes: I21.19 - ST elevation (STEMI) myocardial infarction involving other coronary artery of inferior wall Status: Acute Assessment and Plan 77 yo WF with COPD, PVD, history of AAA repair and lung ca who presented after a fall at home and confusion. She had a syncopal event after micturation with STEMI alert upon presentation. CAD- s/p diagnostic PCI showing severe 2 vessel disease (severe mid LAD and RCA stenosis) CVS consulted for consideration of cardiovascular surgery vs. high risk PCI palliative care consulted Hgb decreasing (7.9) creatinine improving echo EF 50-55%, mild-mod MR TV pacemaker placed cont asa/statin/bb/heparin L thigh hematoma- vascular following; (Freda Moncada) Assessment and Plan family has decided for comfort care measures due to comorbidities available if needed (Jhonny Rosado MD) Freda Moncada Jan 08, 2018 07:55 Jhonny Rosado MD Jan 09, 2018 07:27
--- NOTE | 2018-01-08 08:07 | HHI.PR ---
Addendum to Inpatient Note Addendum Reason: Additional Documentation Additional Information From Primary Care outpatient standpoint (I have known Ms. Adan for nearly 15 years), I agree with patient's son's description that she is likely NOT to participate in post surgical rehab recommendations. She has been antagonistic towards medications and behavioral changes for years prior to this current situation. Depression has been a longstanding issue that she has been unwilling to address limiting our ability to address physical risks of cardiovascular disease. I would be in support of hospice services should her family POAs choose not to pursue surgical intervention. Trena Hyman MD Jan 08, 2018 08:07
[2018-01-08] MEDS: FUROSEMIDE 40 MG/4 ML VIAL IV PUSH SCH (10:26)
[2018-01-08] MEDS: FAMOTIDINE 20 MG TAB PO SCH (10:27)
[2018-01-08] MEDS: DOCUSATE SODIUM 50 MG/SENNA 8.6 MG TAB PO SCH (10:27)
[2018-01-08] MEDS: ASPIRIN EC 81 MG TABEC PO SCH (10:28)
[2018-01-08] MEDS: SODIUM CHLORIDE 0.9% FLUSH 10 ML FLUSH IV FLUSH SCH (10:28)
--- NOTE | 2018-01-08 11:43 | HHI.HCPN ---
Patient's sons and their friend, Gabriela, asked to meet with me this AM. After speaking to other family members and having the input of the patient's primary care physician, they do not want to proceed forward with any further invasive procedures. They want to transition to "comfort measures only," DC pacemaker, DC pressors, DC heparin. They would like to begin process at 2 PM today. They would like patient monitored in the ICU overnight and then if alive in the AM consider transfer to floor or a hospice care center bed. Case discussed with Dr. Milner. Mauri Vázquez MD Jan 08, 2018 11:43
[2018-01-08] MEDS ORDERED: MORPHINE SULFATE 4 MG/ML INJ IV PUSH PRN (12:00)
[2018-01-08] MEDS ORDERED: MORPHINE SULFATE 2 MG/ML INJ IV PUSH ONE (12:00)
[2018-01-08] MEDS ORDERED: LORazepam 2 MG/ML VIAL IV PUSH PRN (12:00)
[2018-01-08] MEDS ORDERED: MIDAZOLAM HCL 2 MG/2 ML VIAL IV PUSH ONE (12:45)
[2018-01-08] MEDS: LORazepam 2 MG/ML VIAL IV PUSH PRN ×3 (12:58→17:55)
--- NOTE | 2018-01-08 15:49 | HHI.CCPN ---
Subjective Remarks/Hospital Course 01/03: 77-year-old woman, presents after collapse. Reportedly was on her way to the restroom when she did not quite make it in class. Family heard her fall. Denied LOC. Patient denies any head injury but has a small abrasion to her forehead. When paramedics arrived she stood up and lost consciousness again. She has been hypertensive and bradycardic with them. They noted inferior ST elevations with a typical changes in the STEMI alert was called. She has recent medical history of a AAA repair in October by Dr. Pittman. Patient is unable to provide any additional history. 01/04: Patient was taken to [facility] however cardiac catheterization was not done as patient had altered mental status in view of concerns by cardiology and then admitted to ICU. Patient was put on anticoagulation with heparin. Overnight she developed a left thigh hematoma which is noted on CT done this morning around 5:30 AM. Stopped heparin drip and consulted vascular surgery Dr. Pittman and also informed Dr. Rosado from cardiology. Patient is resting in bed complaining of pain over the left thigh hematoma site. She is otherwise awake and alert on nasal cannula maintaining her blood pressure and appears pale. Type and crossmatch was ordered with 1 unit PRBCs to be transfused stat. 01/05: Transfused 2 units PRBCs yesterday. Transvenous pacer remains in place. Patient is awake and alert this morning appears pale. Hemoglobin dropped on a.m. labs hence 1 unit PRBCs ordered. Being followed by cardiology for STEMI. On heparin drip. Left thigh hematoma with some blistering over some areas. Vascular surgery following. 01/06: Resting comfortably in bed not in any acute distress. Slightly confused. Following commands. Dropped hemoglobin below 7 this morning. 2 units PRBCs ordered. No hypotension. In sinus rhythm currently. Backup pacer rate at 60/ m since yesterday. Left thigh hematoma site with blistering however appears to be about the same size as yesterday. Vascular surgery following. Troponin went up again overnight which is concerning, on heparin GTT, cardiology to decide further management. 01/07: Resting in bed this morning not in any acute distress. Complaining of some pain over left thigh hematoma site. For cardiac catheterization today. Received 2 units PRBCs yesterday. 01/08: Afebrile. After discussion with palliative care team, Dr. Vázquez, the family has decided for institution of comfort care measures this afternoon. Plan for discontinuation of pacemaker capability, followed by weaning of Dopamine/vasopressor off and Heparin. Objective Vital Signs Date Time Temp Pulse Resp B/P (MAP) Pulse Ox O2 Delivery O2 Flow Rate FiO2 01/08/18 12:00 98.7 60 18 146/65 (92) 100 01/08/18 07:05 Nasal Cannula 3.00 Result Diagram: 01/08/18 0535 01/08/18 0535 Imaging Last Impressions Chest X-Ray 01/06/18 0600 Signed Impressions: Service Date/Time: Saturday, January 06, 2018 03:01 - CONCLUSION: 1. No acute infiltrate. Postop changes on the right. Jose Lake MD Lower Extremity CT 01/04/18 0000 Signed Impressions: Service Date/Time: Thursday, January 04, 2018 05:18 - CONCLUSION: Large hematoma laterally of the left thigh as above. Intact femur. Kevin Shabazz MD Head CT 01/03/18 0000 Signed Impressions: Service Date/Time: December 20:11 - CONCLUSION: 1. No acute intracranial abnormality seen. 2. Atrophy. 3. Left maxillary and sphenoid sinus disease. Kevin Blevins MD Last 24 hours Impressions Chest X-Ray 01/03/18 1902 Signed Impressions: Service Date/Time: December 19:09 - CONCLUSION: Chronic change at the right upper chest. A new or acute abnormality is not seen. Kevin Blevins MD Head CT 01/03/18 0000 Signed Impressions: Service Date/Time: December 20:11 - CONCLUSION: 1. No acute intracranial abnormality seen. 2. Atrophy. 3. Left maxillary and sphenoid sinus disease. Kevin Blevins MD Objective Remarks GENERAL: Well-nourished, well-developed patient. SKIN: Warm and dry. HEAD: Normocephalic. EYES: No scleral icterus. No injection or drainage. Pallor present NECK: Supple, trachea midline. Transvenous pacer in place CARDIOVASCULAR: Regular rate and rhythm without murmurs, gallops, or rubs. RESPIRATORY: Breath sounds equal bilaterally. No accessory muscle use. No wheezing or crackles GASTROINTESTINAL: Abdomen soft, non-tender, nondistended. MUSCULOSKELETAL: Large hematoma over left lateral thigh with significant tenderness. Blisters on skin over hematoma Site marked to watch for expansion. Extremities otherwise well perfused distally and warm bilaterally. NEURO EXAM: Awake alert, oriented 2, moving all 4 extremities, grossly nonfocal. A/P Assessment and Plan STEMI CAD -Cardiac catheterization scheduled for 01/[address] Rosado. Discussed with vascular surgery Dr. Pittman who is okay with proceeding with anything cardiac intervention as needed including cardiac catheterization. -Possible evacuation of left thigh hematoma on 01/[address] Pittman. - Remains on heparin drip. Currently in sinus rhythm with heart rate 70-80s. Backup Pacemaker rate at 60/ min Cardiology to decide further management and need for permanent pacemaker. -Continue aspirin and atorvastatin - Not on a beta roberto currently has previously was having episodes of bradycardia. Deferred to cardiology. - Lasix 40 mg IV daily. 2 units PRBCs to be transfused 01/06. Left thigh hematoma Recent AAA repair in October 2017 - Being followed by vascular surgery Dr. Pittman. - Follow serial H&H, transfuse to keep hemoglobin closer to 9 g percent. Received 2 units PRBCs on 01/04 and 1 unit PRBCs on 01/05, 2 units PRBCs ordered on 01/06. COPD - Bronchodilators as needed. Supplemental O2. Hypothyroidism -Levothyroxine Dyslipidemia -Atorvastatin DVT GI prophylaxis -Jacky's and SCDs -On anticoagulation with heparin for STEMI, plan for discontinuation -Pepcid -Zofran when necessary - Advance PO diet as tolerated. Level 3 Followup CODE STATUS DNR at this time per families wishes. 01/08 D/W BACK END ARCHITECT (Derick), Dr. Vázquez and patient's son and sister present at bedside,all questions answered. Comfort care measures to be instituted today with discontinuation of transvenous pacemaker and Dopamine/Heparin weaned off. Physician Adry Corea MD Jan 08, 2018 15:49
[2018-01-08] MEDS ORDERED: HYOSCYAMINE 0.5 MG/ML AMP IV PUSH ONE (16:15)
[2018-01-08] MEDS: MORPHINE SULFATE 4 MG/ML INJ IV PUSH PRN ×2 (17:56→19:00)
--- NOTE | 2018-01-08 18:29 | HHI.HCPN ---
Reason for visit a. To assist with evaluation and management of symptoms including: pain; confusion; dyspnea b. To assist medical decision maker(s) with: better understanding of current medical conditions; weighing benefits/burdens of medical treatment options; making medical treatment decisions. . Subjective/Interval History I was approached by son, Donald, as I arrived on the unit to see patient. He reported that the family had spoken at length. They feel the patient is suffering now. They don't feel she would do well with additional procedures. They are not going to consent to more procedures. They would like to transition to comfort measures as soon as possible. Patient opened eyes at time of my visit. She shook her head "no" when I asked about pain but she winces and grimaces to any touch or movement. Family reports she had a particularly painful period last night. She is unable to follow commands. She is still having periods of bradycardia in spite of pacer. Dopamine is running. Hg continues to fall. Pt's primary care physician -- Dr. Fernandez -- has placed a note on the chart. She has known the patient for 15 years and agrees with the sons that the patient is unlikely to be cooperative with any type of post operative rehab and will be non-compliant with medication recommendations. She agrees that hospice would be appropriate if surgery is declined under the circumstances. . . Family/friend interactions Met with sons Kevin and Donald. Kevin's friend -- Gabriela -- was also present per Kevin's request. She is a nurse with cardiovascular ICU experience. We discussed the patient's current status. They reiterated their desire to transition to comfort measures. They had questions about the details of this transition. We discussed hospice care , care center placement. weaning weaning dopamine, weaning heparin, specific comfort medications, transfer off the unit, etc. Meeting lasted about 40 minutes. At the end of the meeting family indicated they would like the following: * They would want to transition to "comfort measures only" at 2 pm today. * We will premedicate with morphine and lorazepam and then wean off dopamine and heparin over a matter of hours. * We would discontinue the pacing * We will keep the patient in the ICU overnight. * If she is stable for transfer, we would get a hospice consult in the AM, move her in the AM to a non critical care bed or to a hospice care center. . Advance Directives Living Will: Copy in medical record Health Care Surrogate: Copy in medical record Durable Power of Vp Compliance: Never completed Advance Directive Specifics Date completed: The living will and designation of healthcare surrogate were completed on 2008 . Health Care Surrogate(s): The patient has designated her sons-- Kevin Adan as primary HCS Donald Adan as secondary HCS Documented care wishes: The patient's living will indicates she would not want life prolonging measure should she be found to have a terminal illness, end-stage condition, or persistent vegetative state. . . Significant change in goals: Family wants to honor the patients' living will by transitioning to "comfort measures only" today. . Objective Vital Signs Date Time Temp Pulse Resp B/P (MAP) Pulse Ox O2 Delivery O2 Flow Rate FiO2 01/08/18 12:00 98.7 60 18 146/65 (92) 100 01/08/18 12:00 60 01/08/18 10:00 60 01/08/18 08:00 98.5 60 16 146/69 (94) 99 01/08/18 08:00 60 01/08/18 07:05 100 Nasal Cannula 3.00 01/08/18 04:00 98.0 56 18 104/50 (68) 99 01/08/18 02:30 63 19 140/86 (104) 98 01/08/18 02:00 86 19 151/62 (91) 98 01/08/18 01:31 58 17 122/57 (78) 100 01/08/18 00:00 98.2 111 19 183/84 (117) 100 01/07/18 23:00 95 23 133/65 (87) 94 01/07/18 22:45 99 27 145/81 (102) 99 01/07/18 22:30 94 19 139/76 (97) 99 01/07/18 22:15 98 20 155/83 (107) 96 01/07/18 22:00 95 16 154/79 (104) 100 01/07/18 21:45 100 20 154/75 (101) 100 01/07/18 21:31 102 26 179/109 (132) 01/07/18 21:16 95 16 160/102 (121) 100 01/07/18 21:01 95 17 162/78 (106) 85 01/07/18 20:45 98 20 161/75 (103) 98 01/07/18 20:30 100 20 157/74 (101) 100 01/07/18 20:15 100 20 152/81 (104) 100 01/07/18 20:00 98.3 103 19 149/78 (101) 100 . Physical Exam CONSTITUTIONAL/GENERAL: This is a pale, ill-appearing female. Can nod/shake her head yes/no intermittently, but is otherwise non verbal for me. Does not look comfortable. Winces/grimaces with any touch/movement. TUBES/LINES/DRAINS: Peripheral IVs; right jugular transvenous pacing line ; nasal cannula oxygen; Victoria catheter SKIN: No jaundice, rashes. large hematoma on left thigh. Ecchymoses on upper extremities. All extremities are cool and slightly dusky. Left lower extremity is very cool. EYES: Pupils equal and round. Extraocular motions intact. No scleral icterus. No injection or drainage. Fundi not examined. ENT: Seems to hear me. CARDIOVASCULAR: Irregular rhythm without murmurs, gallops, or rubs. No JVD. Peripheral pulses weaker in left ankle/foot. RESPIRATORY/CHEST: Symmetric, unlabored respirations. Breath sounds diminished bilaterally.. No wheezes, rales, or rhonchi. GASTROINTESTINAL: Abdomen soft, non-tender, nondistended. No hepato-splenomegaly , or palpable masses. No guarding. Bowel sounds hypoactive. GENITOURINARY: Without palpable bladder distension. Victoria catheter in place. MUSCULOSKELETAL: Patient has the hematoma on the left thigh with compression bandage in place. There is some blistering. Hands and feet are cool to the touch. Feet are slightly dusky. LYMPHATICS: Not examined. NEUROLOGICAL: Awake but confused. . Moves all extremities. PSYCHIATRIC: Unable to assess. . Diagnostic Tests Laboratory Laboratory Tests Test 01/06/18 05:40 01/06/18 14:30 01/06/18 17:45 01/07/18 06:44 White Blood Count 20.8 TH/MM3 (4.0-11.0) 18.6 TH/MM3 (4.0-11.0) 14.9 TH/MM3 (4.0-11.0) 17.5 TH/MM3 (4.0-11.0) Red Blood Count 2.11 MIL/MM3 (4.00-5.30) 3.06 MIL/MM3 (4.00-5.30) 2.58 MIL/MM3 (4.00-5.30) 3.24 MIL/MM3 (4.00-5.30) Hemoglobin 6.1 GM/DL (11.6-15.3) 9.4 GM/DL (11.6-15.3) 7.8 GM/DL (11.6-15.3) 10.0 GM/DL (11.6-15.3) Hematocrit 17.8 % (35.0-46.0) 26.9 % (35.0-46.0) 22.8 % (35.0-46.0) 28.3 % (35.0-46.0) Mean Corpuscular Volume 84.7 FL (80.0-100.0) 87.9 FL (80.0-100.0) 88.1 FL (80.0-100.0) 87.1 FL (80.0-100.0) Mean Corpuscular Hemoglobin 28.8 PG (27.0-34.0) 30.6 PG (27.0-34.0) 30.4 PG (27.0-34.0) 30.8 PG (27.0-34.0) Mean Corpuscular Hemoglobin Concent 34.0 % (32.0-36.0) 34.8 % (32.0-36.0) 34.4 % (32.0-36.0) 35.4 % (32.0-36.0) Red Cell Distribution Width 16.5 % (11.6-17.2) 16.2 % (11.6-17.2) 15.7 % (11.6-17.2) 14.8 % (11.6-17.2) Platelet Count 110 TH/MM3 (150-450) 89 TH/MM3 (150-450) 74 TH/MM3 (150-450) 75 TH/MM3 (150-450) Mean Platelet Volume 8.2 FL (7.0-11.0) 8.3 FL (7.0-11.0) 8.6 FL (7.0-11.0) 8.5 FL (7.0-11.0) Neutrophils (%) (Auto) 81.9 % (16.0-70.0) 84.5 % (16.0-70.0) 83.1 % (16.0-70.0) 84.2 % (16.0-70.0) Lymphocytes (%) (Auto) 6.9 % (9.0-44.0) 5.4 % (9.0-44.0) 5.5 % (9.0-44.0) 5.4 % (9.0-44.0) Monocytes (%) (Auto) 10.4 % (0.0-8.0) 8.8 % (0.0-8.0) 10.5 % (0.0-8.0) 9.6 % (0.0-8.0) Eosinophils (%) (Auto) 0.4 % (0.0-4.0) 0.6 % (0.0-4.0) 0.5 % (0.0-4.0) 0.5 % (0.0-4.0) Basophils (%) (Auto) 0.4 % (0.0-2.0) 0.7 % (0.0-2.0) 0.4 % (0.0-2.0) 0.3 % (0.0-2.0) Neutrophils # (Auto) 17.0 TH/MM3 (1.8-7.7) 15.7 TH/MM3 (1.8-7.7) 12.4 TH/MM3 (1.8-7.7) 14.8 TH/MM3 (1.8-7.7) Lymphocytes # (Auto) 1.4 TH/MM3 (1.0-4.8) 1.0 TH/MM3 (1.0-4.8) 0.8 TH/MM3 (1.0-4.8) 0.9 TH/MM3 (1.0-4.8) Monocytes # (Auto) 2.2 TH/MM3 (0-0.9) 1.6 TH/MM3 (0-0.9) 1.6 TH/MM3 (0-0.9) 1.7 TH/MM3 (0-0.9) Eosinophils # (Auto) 0.1 TH/MM3 (0-0.4) 0.1 TH/MM3 (0-0.4) 0.1 TH/MM3 (0-0.4) 0.1 TH/MM3 (0-0.4) Basophils # (Auto) 0.1 TH/MM3 (0-0.2) 0.1 TH/MM3 (0-0.2) 0.1 TH/MM3 (0-0.2) 0.1 TH/MM3 (0-0.2) CBC Comment AUTO DIFF DIFF FINAL AUTO DIFF AUTO DIFF Differential Total Cells Counted 100 Neutrophils % (Manual) 89 % (16-70) Band Neutrophils % 1 % (0-6) Lymphocytes % 1 % (9-44) Monocytes % 8 % (0-8) Eosinophils % 1 % (0-4) Neutrophils # (Manual) 18.7 TH/MM3 (1.8-7.7) Differential Comment FINAL DIFF MANUAL AUTO DIFF CONFIRMED AUTO DIFF CONFIRMED Platelet Estimate LOW (NORMAL) LOW (NORMAL) LOW (NORMAL) Platelet Morphology Comment NORMAL (NORMAL) NORMAL (NORMAL) NORMAL (NORMAL) Blood Urea Nitrogen 26 MG/DL (7-18) 23 MG/DL (7-18) Creatinine 1.64 MG/DL (0.50-1.00) 1.06 MG/DL (0.50-1.00) Random Glucose 122 MG/DL (74-106) 98 MG/DL (74-106) Total Protein 4.8 GM/DL (6.4-8.2) 5.2 GM/DL (6.4-8.2) Albumin 2.1 GM/DL (3.4-5.0) 2.2 GM/DL (3.4-5.0) Calcium Level 7.8 MG/DL (8.5-10.1) 8.2 MG/DL (8.5-10.1) Alkaline Phosphatase 55 U/L (45-117) 63 U/L (45-117) Aspartate Amino Transf (AST/SGOT) 60 U/L (15-37) 38 U/L (15-37) Alanine Aminotransferase (ALT/SGPT) 17 U/L (10-53) 15 U/L (10-53) Total Bilirubin 0.5 MG/DL (0.2-1.0) 1.2 MG/DL (0.2-1.0) Sodium Level 141 MEQ/L (136-145) 144 MEQ/L (136-145) Potassium Level 4.0 MEQ/L (3.5-5.1) 3.8 MEQ/L (3.5-5.1) Chloride Level 111 MEQ/L (98-107) 111 MEQ/L (98-107) Carbon Dioxide Level 22.3 MEQ/L (21.0-32.0) 24.3 MEQ/L (21.0-32.0) Anion Gap 8 MEQ/L (5-15) 9 MEQ/L (5-15) Estimat Glomerular Filtration Rate 30 ML/MIN (>89) 50 ML/MIN (>89) Troponin I 27.90 NG/ML (0.02-0.05) B-Type Natriuretic Peptide 318 PG/ML (0-100) Red Cell Morphology Comment NORMAL (NORMAL) Activated Partial Thromboplast Time 31.3 SEC (24.3-30.1) Test 01/07/18 18:41 01/07/18 19:17 01/08/18 01:46 01/08/18 05:35 White Blood Count 22.4 TH/MM3 (4.0-11.0) 11.1 TH/MM3 (4.0-11.0) Red Blood Count 2.86 MIL/MM3 (4.00-5.30) 2.55 MIL/MM3 (4.00-5.30) Hemoglobin 8.6 GM/DL (11.6-15.3) 7.9 GM/DL (11.6-15.3) Hematocrit 25.3 % (35.0-46.0) 22.5 % (35.0-46.0) Mean Corpuscular Volume 88.5 FL (80.0-100.0) 88.3 FL (80.0-100.0) Mean Corpuscular Hemoglobin 30.0 PG (27.0-34.0) 31.2 PG (27.0-34.0) Mean Corpuscular Hemoglobin Concent 34.0 % (32.0-36.0) 35.3 % (32.0-36.0) Red Cell Distribution Width 15.2 % (11.6-17.2) 15.8 % (11.6-17.2) Platelet Count 83 TH/MM3 (150-450) 70 TH/MM3 (150-450) Mean Platelet Volume 8.7 FL (7.0-11.0) 8.4 FL (7.0-11.0) Neutrophils (%) (Auto) 84.6 % (16.0-70.0) 82.6 % (16.0-70.0) Lymphocytes (%) (Auto) 6.0 % (9.0-44.0) 8.0 % (9.0-44.0) Monocytes (%) (Auto) 9.0 % (0.0-8.0) 8.6 % (0.0-8.0) Eosinophils (%) (Auto) 0.2 % (0.0-4.0) 0.4 % (0.0-4.0) Basophils (%) (Auto) 0.2 % (0.0-2.0) 0.4 % (0.0-2.0) Neutrophils # (Auto) 19.0 TH/MM3 (1.8-7.7) 9.1 TH/MM3 (1.8-7.7) Lymphocytes # (Auto) 1.4 TH/MM3 (1.0-4.8) 0.9 TH/MM3 (1.0-4.8) Monocytes # (Auto) 2.0 TH/MM3 (0-0.9) 1.0 TH/MM3 (0-0.9) Eosinophils # (Auto) 0.0 TH/MM3 (0-0.4) 0.0 TH/MM3 (0-0.4) Basophils # (Auto) 0.0 TH/MM3 (0-0.2) 0.0 TH/MM3 (0-0.2) CBC Comment AUTO DIFF AUTO DIFF Differential Total Cells Counted 100 Neutrophils % (Manual) 82 % (16-70) Band Neutrophils % 5 % (0-6) Lymphocytes % 2 % (9-44) Monocytes % 9 % (0-8) Neutrophils # (Manual) 19.9 TH/MM3 (1.8-7.7) Metamyelocytes 1 % (0-1) Myelocytes 1 % (0-0) Nucleated Red Blood Cells 2 /100 WBC (0-0) Differential Comment FINAL DIFF MANUAL AUTO DIFF CONFIRMED Platelet Estimate LOW (NORMAL) Platelet Morphology Comment NORMAL (NORMAL) Activated Partial Thromboplast Time 40.1 SEC (24.3-30.1) 42.9 SEC (24.3-30.1) 42.0 SEC (24.3-30.1) Lab Scanned Report Lab Reports - Other [id number] Blood Urea Nitrogen 27 MG/DL (7-18) Creatinine 1.16 MG/DL (0.50-1.00) Random Glucose 137 MG/DL (74-106) Total Protein 5.4 GM/DL (6.4-8.2) Albumin 2.1 GM/DL (3.4-5.0) Calcium Level 8.0 MG/DL (8.5-10.1) Alkaline Phosphatase 64 U/L (45-117) Aspartate Amino Transf (AST/SGOT) 63 U/L (15-37) Alanine Aminotransferase (ALT/SGPT) 15 U/L (10-53) Total Bilirubin 0.9 MG/DL (0.2-1.0) Sodium Level 144 MEQ/L (136-145) Potassium Level 3.3 MEQ/L (3.5-5.1) Chloride Level 109 MEQ/L (98-107) Carbon Dioxide Level 24.7 MEQ/L (21.0-32.0) Anion Gap 10 MEQ/L (5-15) Estimat Glomerular Filtration Rate 45 ML/MIN (>89) . Result Diagram: 01/08/18 0535 01/08/18 0535 Imaging Last Impressions Chest X-Ray 01/06/18 0600 Signed Impressions: Service Date/Time: Saturday, January 06, 2018 03:01 - CONCLUSION: 1. No acute infiltrate. Postop changes on the right. Jose Lake MD Lower Extremity CT 01/04/18 0000 Signed Impressions: Service Date/Time: Thursday, January 04, 2018 05:18 - CONCLUSION: Large hematoma laterally of the left thigh as above. Intact femur. Kevin Shabazz MD Head CT 01/03/18 0000 Signed Impressions: Service Date/Time: December 20:11 - CONCLUSION: 1. No acute intracranial abnormality seen. 2. Atrophy. 3. Left maxillary and sphenoid sinus disease. Kevin Blevins MD . Procedures Cardiac catheterization Transvenous pacemaker placement . Assessment and Plan Disease Oriented Problem List: (1) ST elevation myocardial infarction (STEMI) of inferior wall (2) COPD (chronic obstructive pulmonary disease) (3) Hematoma (4) History of alcohol abuse (5) PAD (peripheral artery disease) (6) Hypothyroidism (7) Depression (8) History of lung cancer Symptom Scale: (1) Pain 0-10 Scale: Unable to quantify Comment: Grimaces/winces with any touch or movement. . (2) Dyspnea 0-10 Scale: Unable to quantify Comment: Intermittently tachypnic. . (3) Confusion 0-10 Scale: Unable to quantify Comment: Probably a multi-factor delirium. . Pertinent Non-Medical Issues Psychosocial: Had been living alone but failing prior to her vascular procedures in October 2017. No local psychosocial support. Sons have been down visiting. Spiritual: Patient is [employer]. The Rn Labor Delivery is already visited her in the hospital. Legal: Advanced directives are in place. Ethical issues impacting care: Patient is intermittently confused. Until she clears, healthcare decision making should be done jointly with her designated surrogate. . Important Contacts * Kevin Adan as primary HCS [phone] * Donald Lomassimón as secondary [facility] [phone] . Prognosis As her 2 sons describe her lack of compliance and her attitude as well as her decline over the last 2 years, I remain worried that whether she has her coronary arteries addressed or not she will remain mostly bedbound and therefore decline. She has been angry that she had her prior procedures done, angry that she can't go home, angry that she is unable to smoke etc. Per her sons, her chances of participating in rehabilitation following any additional procedure are almost nil. Given above, health care surrogate has opted to transition to "comfort measures only" and honor her living will. Life expectancy is probably hours to days once off pressors, heparin, transfusions, pacer and on comfort meds. . . Code Status: No Code Plan == Code Status: NO CODE == Health care decision making: Patient is confused and at this point has no reasonable probability of recovering capacity to make her own healthcare decisions. Her designated healthcare surrogate is her son -- Kevin Adan. == Goals of medical treatment: Health care surrogate wants to transition to "comfort measures only" going forward. They want to stop pressors, heparin, pacing and just ensure her comfort. == Symptoms * Pain: Patient had no reported underlying pain syndromes. She injured her left thigh when she fell at home. She now has a painful large hematoma in this area. She currently has orders for acetaminophen and Percocet if necessary which does not appear to be adequate. Orders for prn morphine and lorazepam written for comfort going forward. * Dyspnea: Patient has known underlying COPD and has been a chain smoker for years. Appears to be obtaining adequate oxygenation on nasal cannula O2. There has been intermittent need for a nonrebreather mask. Will address dyspnea with comfort med. * Confusion: This is probably a multifactorial delirium. Illness, medications, and multiple changes in environment probably all contributed. We will not be treating the underlying problems at this time. Anticipate that the other comfort meds will prevent the patient from suffering from the delirium. == I have presonally spoken to Dr. Milner, Dr. Pittman, and cardiothoracic surgery ROLL HANDLER who all agree with the plan. == Appropriate exhibits to allow for withholding/withdrawing life prolonging measures have been signed. == I have personally ordered comfort medication. == Hospice consult in AM if patient survives. == Will plan on transfer out of MICU (non critical care bed or hospice care center bed) if patient survives overnight. . Time Spent Total Floor Time (mins): 60 (Total floor time included chart review, patient exam, above referenced family meeting, discussions with the electronic scanner operator/ vascular surgeon/cardio-thoracis ROLL HANDLER, bedside nurse, writing orders, and documentation. ) Face to Face Time (mins): 15 >50% Counseling/Coord of Care: Yes Attestation To help prompt me to consider important information that might be impacting today's encounter and assessment, information from prior notes written by myself or my colleagues may have been "brought forward" into today's note. My signature on this note, however, is an attestation that I personally performed the exam, history, and/or decision-making noted today, and, unless otherwise indicated, the interactions with patient, family, and staff as well as the review of records all occurred today. I also attest that the listed assessment and stated plan reflect my best clinical judgment today based on the combination of historical information, prior notes, and today's exam/ interactions. When time spent is documented, it refers only to time spent today by the signer, or if indicated, combined time spent today by collaborating physician/nurse practitioner. . Mauri Vázquez MD Jan 08, 2018 18:28
--- NOTE | 2018-01-09 07:05 | HHI.DS ---
Summary Note Date of : Jan 08, 2018 Time Of : 2053 Admission Date Jan 03, 2018 at 19:38 Admitting Diagnosis STEMI Diagnosis at Time of : Brief History 77-year-old woman, presents after collapse. Reportedly was on her way to the restroom when she did not quite make it in class. Family heard her fall. Denied LOC. Patient denies any head injury but has a small abrasion to her forehead. When paramedics arrived she stood up and lost consciousness again. She has been hypertensive and bradycardic with them. They noted inferior ST elevations with a typical changes in the STEMI alert was called. She has recent medical history of a AAA repair in October by Dr. Pittman. Patient is unable to provide any additional history. CBC/BMP: 01/08/18 0535 01/08/18 0535 Significant Findings Laboratory Tests Test 01/06/18 14:30 01/06/18 17:45 01/07/18 06:44 01/07/18 18:41 White Blood Count 18.6 TH/MM3 (4.0-11.0) 14.9 TH/MM3 (4.0-11.0) 17.5 TH/MM3 (4.0-11.0) 22.4 TH/MM3 (4.0-11.0) Red Blood Count 3.06 MIL/MM3 (4.00-5.30) 2.58 MIL/MM3 (4.00-5.30) 3.24 MIL/MM3 (4.00-5.30) 2.86 MIL/MM3 (4.00-5.30) Hemoglobin 9.4 GM/DL (11.6-15.3) 7.8 GM/DL (11.6-15.3) 10.0 GM/DL (11.6-15.3) 8.6 GM/DL (11.6-15.3) Hematocrit 26.9 % (35.0-46.0) 22.8 % (35.0-46.0) 28.3 % (35.0-46.0) 25.3 % (35.0-46.0) Platelet Count 89 TH/MM3 (150-450) 74 TH/MM3 (150-450) 75 TH/MM3 (150-450) 83 TH/MM3 (150-450) Neutrophils (%) (Auto) 84.5 % (16.0-70.0) 83.1 % (16.0-70.0) 84.2 % (16.0-70.0) 84.6 % (16.0-70.0) Lymphocytes (%) (Auto) 5.4 % (9.0-44.0) 5.5 % (9.0-44.0) 5.4 % (9.0-44.0) 6.0 % (9.0-44.0) Monocytes (%) (Auto) 8.8 % (0.0-8.0) 10.5 % (0.0-8.0) 9.6 % (0.0-8.0) 9.0 % (0.0-8.0) Neutrophils # (Auto) 15.7 TH/MM3 (1.8-7.7) 12.4 TH/MM3 (1.8-7.7) 14.8 TH/MM3 (1.8-7.7) 19.0 TH/MM3 (1.8-7.7) Monocytes # (Auto) 1.6 TH/MM3 (0-0.9) 1.6 TH/MM3 (0-0.9) 1.7 TH/MM3 (0-0.9) 2.0 TH/MM3 (0-0.9) Lymphocytes # (Auto) 0.8 TH/MM3 (1.0-4.8) 0.9 TH/MM3 (1.0-4.8) Platelet Estimate LOW (NORMAL) LOW (NORMAL) LOW (NORMAL) Activated Partial Thromboplast Time 31.3 SEC (24.3-30.1) 40.1 SEC (24.3-30.1) Blood Urea Nitrogen 23 MG/DL (7-18) Creatinine 1.06 MG/DL (0.50-1.00) Total Protein 5.2 GM/DL (6.4-8.2) Albumin 2.2 GM/DL (3.4-5.0) Calcium Level 8.2 MG/DL (8.5-10.1) Aspartate Amino Transf (AST/SGOT) 38 U/L (15-37) Total Bilirubin 1.2 MG/DL (0.2-1.0) Chloride Level 111 MEQ/L (98-107) Estimat Glomerular Filtration Rate 50 ML/MIN (>89) Neutrophils % (Manual) 82 % (16-70) Lymphocytes % 2 % (9-44) Monocytes % 9 % (0-8) Neutrophils # (Manual) 19.9 TH/MM3 (1.8-7.7) Myelocytes 1 % (0-0) Nucleated Red Blood Cells 2 /100 WBC (0-0) Test 01/07/18 19:17 01/08/18 01:46 01/08/18 05:35 Activated Partial Thromboplast Time 42.9 SEC (24.3-30.1) 42.0 SEC (24.3-30.1) White Blood Count 11.1 TH/MM3 (4.0-11.0) Red Blood Count 2.55 MIL/MM3 (4.00-5.30) Hemoglobin 7.9 GM/DL (11.6-15.3) Hematocrit 22.5 % (35.0-46.0) Platelet Count 70 TH/MM3 (150-450) Neutrophils (%) (Auto) 82.6 % (16.0-70.0) Lymphocytes (%) (Auto) 8.0 % (9.0-44.0) Monocytes (%) (Auto) 8.6 % (0.0-8.0) Neutrophils # (Auto) 9.1 TH/MM3 (1.8-7.7) Lymphocytes # (Auto) 0.9 TH/MM3 (1.0-4.8) Monocytes # (Auto) 1.0 TH/MM3 (0-0.9) Blood Urea Nitrogen 27 MG/DL (7-18) Creatinine 1.16 MG/DL (0.50-1.00) Random Glucose 137 MG/DL (74-106) Total Protein 5.4 GM/DL (6.4-8.2) Albumin 2.1 GM/DL (3.4-5.0) Calcium Level 8.0 MG/DL (8.5-10.1) Aspartate Amino Transf (AST/SGOT) 63 U/L (15-37) Potassium Level 3.3 MEQ/L (3.5-5.1) Chloride Level 109 MEQ/L (98-107) Estimat Glomerular Filtration Rate 45 ML/MIN (>89) Imaging Last Impressions Chest X-Ray 01/06/18 0600 Signed Impressions: Service Date/Time: Saturday, January 06, 2018 03:01 - CONCLUSION: 1. No acute infiltrate. Postop changes on the right. Jose Lake MD Lower Extremity CT 01/04/18 0000 Signed Impressions: Service Date/Time: Thursday, January 04, 2018 05:18 - CONCLUSION: Large hematoma laterally of the left thigh as above. Intact femur. Kevin Shabazz MD Head CT 01/03/18 0000 Signed Impressions: Service Date/Time: December 20:11 - CONCLUSION: 1. No acute intracranial abnormality seen. 2. Atrophy. 3. Left maxillary and sphenoid sinus disease. Kevin Blevins MD Last 24 hours Impressions Chest X-Ray 01/03/18 190 Signed Impressions: Service Date/Time: December 19:09 - CONCLUSION: Chronic change at the right upper chest. A new or acute abnormality is not seen. Kevin Blevins MD Head CT 01/03/18 0000 Signed Impressions: Service Date/Time: December 20:11 - CONCLUSION: 1. No acute intracranial abnormality seen. 2. Atrophy. 3. Left maxillary and sphenoid sinus disease. Kevin Blevins MD Hospital Course Remarks/Hospital Course 01/03: 77-year-old woman, presents after collapse. Reportedly was on her way to the restroom when she did not quite make it in class. Family heard her fall. Denied LOC. Patient denies any head injury but has a small abrasion to her forehead. When paramedics arrived she stood up and lost consciousness again. She has been hypertensive and bradycardic with them. They noted inferior ST elevations with a typical changes in the STEMI alert was called. She has recent medical history of a AAA repair in October by Dr. Pittman. Patient is unable to provide any additional history. 01/04: Patient was taken to [facility] however cardiac catheterization was not done as patient had altered mental status in view of concerns by cardiology and then admitted to ICU. Patient was put on anticoagulation with heparin. Overnight she developed a left thigh hematoma which is noted on CT done this morning around 5:30 AM. Stopped heparin drip and consulted vascular surgery Dr. Pittman and also informed Dr. Rosado from cardiology. Patient is resting in bed complaining of pain over the left thigh hematoma site. She is otherwise awake and alert on nasal cannula maintaining her blood pressure and appears pale. Type and crossmatch was ordered with 1 unit PRBCs to be transfused stat. 01/05: Transfused 2 units PRBCs yesterday. Transvenous pacer remains in place. Patient is awake and alert this morning appears pale. Hemoglobin dropped on a.m. labs hence 1 unit PRBCs ordered. Being followed by cardiology for STEMI. On heparin drip. Left thigh hematoma with some blistering over some areas. Vascular surgery following. 01/06: Resting comfortably in bed not in any acute distress. Slightly confused. Following commands. Dropped hemoglobin below 7 this morning. 2 units PRBCs ordered. No hypotension. In sinus rhythm currently. Backup pacer rate at 60/ m since yesterday. Left thigh hematoma site with blistering however appears to be about the same size as yesterday. Vascular surgery following. Troponin went up again overnight which is concerning, on heparin GTT, cardiology to decide further management. 01/07: Resting in bed this morning not in any acute distress. Complaining of some pain over left thigh hematoma site. For cardiac catheterization today. Received 2 units PRBCs yesterday. 01/08: Afebrile. After discussion with palliative care team, Dr. Vázquez, the family has decided for institution of comfort care measures this afternoon. Plan for discontinuation of pacemaker capability, followed by weaning of Dopamine/vasopressor off and Heparin. Comfort care measures instituted, with family at bedside, the patient at 2053. Adry Milner MD Jan 09, 2018 07:05
== END 2018-01-08 20:54 | disposition expired ==
LOC: NEPE 18:52 → NEDA 19:38 → HDIC 20:40 → HIME 21:35
PROVIDERS: ADMIT Internal Medicine Critical Care Medicine; ATTEND Internal Medicine Critical Care Medicine
PROC: 05HM33Z Insertion of Infusion Device into Right Internal Jugular Vein, Percutaneous Approach (ICD-10-PCS; principal; 2018-01-04)
PROC: 30233N1 Transfusion of Nonautologous Red Blood Cells into Peripheral Vein, Percutaneous Approach (ICD-10-PCS; 2018-01-04)
PROC: 4A023N7 Measurement of Cardiac Sampling and Pressure, Left Heart, Percutaneous Approach (ICD-10-PCS; 2018-01-07)
PROC: B2111ZZ Fluoroscopy of Multiple Coronary Arteries using Low Osmolar Contrast (ICD-10-PCS; 2018-01-07)
DX: I21.19 ST elevation (STEMI) myocardial infarction involving other coronary artery of inferior wall (principal); J44.9 Chronic obstructive pulmonary disease, unspecified; R00.1 Bradycardia, unspecified; S70.12XA Contusion of left thigh, initial encounter; I25.10 Atherosclerotic heart disease of native coronary artery without angina pectoris; I10 Essential (primary) hypertension; D64.9 Anemia, unspecified; R55 Syncope and collapse; S00.81XA Abrasion of other part of head, initial encounter; Z85.118 Personal history of other malignant neoplasm of bronchus and lung; W18.30XA Fall on same level, unspecified, initial encounter; Y93.89 Activity, other specified; Y92.002 Bathroom of unspecified non-institutional (private) residence as the place of occurrence of the external cause; E03.9 Hypothyroidism, unspecified; I73.9 Peripheral vascular disease, unspecified; E78.5 Hyperlipidemia, unspecified; Z86.79 Personal history of other diseases of the circulatory system; Z53.8 Procedure and treatment not carried out for other reasons; Z51.5 Encounter for palliative care; R15.9 Full incontinence of feces; R32 Unspecified urinary incontinence; F17.210 Nicotine dependence, cigarettes, uncomplicated; Z66 Do not resuscitate; I44.7 Left bundle-branch block, unspecified; Z83.3 Family history of diabetes mellitus; Z82.49 Family history of ischemic heart disease and other diseases of the circulatory system; Z91.19 Patient's noncompliance with other medical treatment and regimen; F32.9 Major depressive disorder, single episode, unspecified; Z92.3 Personal history of irradiation; Z92.21 Personal history of antineoplastic chemotherapy
CPT/HCPCS: 33210; 36430; 70450; 71045; 73700; 76937; 80048; 80053; 82310; 82550; 82552; 83735; 83880; 84100; 84484; 85002; 85007; 85014; 85018; 85025; 85027; 85610; 85730; 86850; 86900; 86901; 86920; 87641; 93005; 93306; 93454; 94664; 99152; 99153; 99291; C1893; J0171; J0461; J1644; J1940; J1980; J2060; J2250; J2270; J3010; J3475; J3480; J7030; J7050; P9016; Q9967